=== PATIENT | male | born 1955 | race African-American/Black ===

== ENCOUNTER 2018-07-26 17:00 | Inpatient (IN) | payer OTHER ==
[~2018-07-26] VITALS: Ht 182.9 cm; Wt 57.3 kg
[2018-07-26] MEDS ORDERED: FAMOTIDINE 20 MG TAB PO STA (19:27)
[2018-07-26] MEDS ORDERED: LIDOCAINE/MYLANTA 40 ML BTL PO STA (19:27)
[2018-07-26] MEDS ORDERED: SOD CHLORIDE 0.9% 1,000 ML IV STA (19:27)
[2018-07-26] MEDS ORDERED: METOCLOPRAMIDE 10 MG INJ IV STA (19:27)
--- NOTE | 2018-07-26 20:10 | ERD ---
ER Documentation Chief Complaint Chief Complaint bilateral flank pain HPI 63-year-old homeless male presenting with upper abdominal pain that radiates to his back. The pain has been going on for the past 1-2 months. He has been seen about 4 times in various EDs and told it was his stomach. But any medications he is prescribed are not helping. He is not sure of the name of the medicines. He complains of decreased appetite, weight loss, and occasional nonbloody and nonbilious vomiting. He also has associated hard stools. His pain somewhat improves when he eats but he states he "cannot" he because it does not go down. He even has trouble drinking water. No fevers or chills. He was at an outside hospital yesterday where he had a CT scan done that did not show any significant abnormalities per the patient. He states that no one can find out what is going on. He went to the clinic today and was referred to the ER for further evaluation and admission. ROS All systems reviewed and are negative except as per history of present illness. Medications Home Meds No Active Prescriptions or Reported Meds Allergies Allergies: Coded Allergies: No Known Allergy (Unverified , 07/26/18) PMhx/Soc Medical and Surgical Hx: pt denies Surgical Hx History of Surgery: No Anesthesia Reaction: No Hx Neurological Disorder: No Hx Respiratory Disorders: No Hx Cardiac Disorders: Yes (HTN ) Hx Psychiatric Problems: No Hx Miscellaneous Medical Probl: Yes (History of hypertension and diabetes, no longer has these problems per patient) Hx Alcohol Use: No Hx Substance Use: No Hx Tobacco Use: No Smoking Status: Never smoker FmHx Family History: diabetes Physical Exam Vitals Vital Signs Date Temp Pulse Resp B/P (MAP) Pulse Ox O2 O2 Flow FiO2 Time Delivery Rate 07/26/18 79 14 114/82 99 Room Air 23:22 (93) 07/26/18 75 16 113/68 99 Room Air 22:43 (83) 07/26/18 83 18 148/96 99 Room Air 19:25 (113) 07/26/18 98.7 88 15 128/92 100 17:03 (104) Physical Exam Const: Thin, cachectic, in mild distress due to pain Head: Atraumatic Eyes: Normal Conjunctiva ENT: Normal External Ears, Nose and Mouth. Neck: Full range of motion. No meningismus. Resp: Clear to auscultation bilaterally Cardio: Regular rate and rhythm, no murmurs Abd: Soft, non tender, non distended. No masses. Normal bowel sounds Skin: No petechiae or rashes Back: No midline or flank tenderness Ext: No cyanosis, or edema Neur: Awake and alert Psych: Normal Mood and Affect Result Diagram: 07/26/18189907/26/181899 Results 24 hrs Laboratory Tests Test 07/26/18 19:00 07/26/18 19:35 White Blood Count 5.0 10^3/ul Red Blood Count 5.46 10^6/ul Hemoglobin 15.1 g/dl Hematocrit 45.9 % Mean Corpuscular Volume 84.1 fl Mean Corpuscular Hemoglobin 27.7 pg Mean Corpuscular Hemoglobin Concent 32.9 g/dl Red Cell Distribution Width 14.7 % Platelet Count 304 10^3/UL Mean Platelet Volume 10.2 fl Immature Granulocytes % 0.200 % Neutrophils % 58.5 % Lymphocytes % 30.8 % Monocytes % 10.3 % Eosinophils % 0.0 % Basophils % 0.2 % Nucleated Red Blood Cells % 0.0 /100WBC Immature Granulocytes # 0.010 10^3/ul Neutrophils # 2.9 10^3/ul Lymphocytes # 1.6 10^3/ul Monocytes # 0.5 10^3/ul Eosinophils # 0.0 10^3/ul Basophils # 0.0 10^3/ul Nucleated Red Blood Cells # 0.0 10^3/ul Sodium Level 135 mmol/L Potassium Level 4.1 mmol/L Chloride Level 94 mmol/L Carbon Dioxide Level 29 mmol/L Anion Gap 12 Blood Urea Nitrogen 16 mg/dl Creatinine 0.93 mg/dl Est Glomerular Filtrat Rate mL/min > 60 mL/min Glucose Level 104 mg/dl Calcium Level 10.4 mg/dl Total Bilirubin 0.7 mg/dl Direct Bilirubin 0.00 mg/dl Indirect Bilirubin 0.7 mg/dl Aspartate Amino Transf (AST/SGOT) 42 IU/L Alanine Aminotransferase (ALT/SGPT) 29 IU/L Alkaline Phosphatase 93 IU/L Total Protein 9.1 g/dl Albumin 4.4 g/dl Globulin 4.70 g/dl Albumin/Globulin Ratio 0.93 Lipase 87 U/L Urine Color YELLOW Urine Clarity CLEAR Urine pH 7.0 Urine Specific [place] 1.013 Urine Ketones 1+ mg/dL Urine Nitrite NEGATIVE mg/dL Urine Bilirubin NEGATIVE mg/dL Urine Urobilinogen 2+ mg/dL Urine Leukocyte Esterase NEGATIVE Komal/ul Urine Hemoglobin NEGATIVE mg/dL Urine Glucose NEGATIVE mg/dL Urine Total Protein NEGATIVE mg/dl Current Medications Medications Dose Sig/Kassandra Start Time Status Last (Trade) Ordered Route PRN Stop Time Admin Dose Reason Admin Sodium 1,000 ml @ Q1H STAT 07/26/18 DC 07/26/18 Chloride 1,000 mls/hr IV 19:27 07/26/18 19:46 20:26 10 mg ONCE STAT 07/26/18 DC 07/26/18 Metoclopramid IV 19:27 07/26/18 19:46 e HCl 19:30 (Reglan) Famotidine 20 mg ONCE STAT 07/26/18 DC 07/26/18 (Pepcid) PO 19:27 07/26/18 19:46 19:30 40 ml ONCE STAT 07/26/18 DC 07/26/18 Miscellaneous PO 19:27 07/26/18 19:45 Medication 19:30 (Gi Cocktail (2)) Ondansetron 4 mg BRIDGE ORDER 07/26/18 HCl (Zofran PRN IV 23:00 07/27/18 Inj) NAUSEA/VOMITI 22:59 NG 650 mg ER BRIDGE 07/26/18 Acetaminophen PRN PO 23:00 07/27/18 (Tylenol .MILD PAIN 22:59 Tab) 1-3 OR TEMP Sodium 100 ml @ ud STK-MED 07/26/18 DC 07/26/18 Chloride ONCE .ROUTE 23:33 07/26/18 23:45 23:34 Iohexol 150 ml STK-MED 07/26/18 DC 07/26/18 (Omnipaque ONCE .ROUTE 23:33 07/26/18 23:45 300mg/ ml) 23:34 Procedures/MDM EMERGENT LABS AND DIAGNOSTIC STUDIES: Lab Results above were reviewed and interpreted by me. CBC: no anemia or evidence of infection CMP: No evidence of electrolyte abnormality, renal failure, hypoglycemia, liver failure, or biliary obstruction Lipase: no evidence of pancreatitis UA: no evidence of infection Radiology Results as interpreted by Radiology below were reviewed by Kadi Barr MD: CXR: No acute abnormalities CT abdomen and pelvis pending Initial Nursing notes reviewed. Previous Medical Records requested via the Electronic Health Record. EMERGENCY DEPARTMENT COURSE / MEDICAL DECISION MAKING: Patient is presenting with severe upper abdominal pain that has been going on for the past 1-2 months with associated weight loss. Patient has not had appropriate outpatient follow-up and has seen physicians at multiple emergency rooms with no certain diagnosis. He went to see his primary care doctor today, who referred him to the ER for admission. He is recommending endoscopy for the patient. Labs did not show any significant abnormalities. However as patient is unable to eat or drink due to his pain, I feel the patient would most benefit from admission for further workup, especially given that he has poor outpatient follow-up. Accepting Care Team: Current data and ongoing care discussed. Time: Time of admission Primary Provider: Dr. Barber Sewell Diagnosis: Primary Impression: Intractable upper abdominal pain Additional Impression: Weight loss Condition: BHAVIK Way MD Jul 26, 2018 20:10
[2018-07-26] MEDS ORDERED: ACETAMINOPHEN 325 MG TAB PO PRN (23:00)
[2018-07-26] MEDS ORDERED: ONDANSETRON 4 MG INJ IV PRN (23:00)
[2018-07-26] MEDS ORDERED: SOD CHLORIDE 0.9% 100 ML ONE (23:33)
[2018-07-26] MEDS ORDERED: IOHEXOL 300MG/ML 150 ML BTL ONE (23:33)
--- NOTE | 2018-07-26 23:59 | HP ---
Date/Time of Note Date/Time of Note DATE: 07/26/18 TIME: 23:59 Assessment/Plan VTE Prophylaxis Pharmacological prophylaxis: heparin Assessment/Plan Assessment/Plan 1. Abdominal pain, weight loss: Rule out malignancy -CT abdomen/pelvis showed Contracted gallbladder with possible wall thickening and some fluid adjacent to the gallbladder and duodenum with small 9 mm dense or enhancing focus adjacent to the gallbladder of uncertain etiology. -will obtain abdominal ultrasound. -Additional imaging as needed 2. Dysphagia: Mostly to solids: GI consult 3. Hypertension: BP within goal Result Diagram: 07/26/18 1900 07/26/18 190 Results 24hrs Laboratory Tests Test 07/26/18 19:00 07/26/18 19:35 White Blood Count 5.0 Red Blood Count 5.46 Hemoglobin 15.1 Hematocrit 45.9 Mean Corpuscular Volume 84.1 Mean Corpuscular Hemoglobin 27.7 L Mean Corpuscular Hemoglobin Concent 32.9 Red Cell Distribution Width 14.7 H Platelet Count 304 Mean Platelet Volume 10.2 Immature Granulocytes % 0.200 Neutrophils % 58.5 Lymphocytes % 30.8 Monocytes % 10.3 Eosinophils % 0.0 Basophils % 0.2 Nucleated Red Blood Cells % 0.0 Immature Granulocytes # 0.010 Neutrophils # 2.9 Lymphocytes # 1.6 Monocytes # 0.5 Eosinophils # 0.0 Basophils # 0.0 Nucleated Red Blood Cells # 0.0 Sodium Level 135 Potassium Level 4.1 Chloride Level 94 L Carbon Dioxide Level 29 Anion Gap 12 Blood Urea Nitrogen 16 Creatinine 0.93 Est Glomerular Filtrat Rate mL/min > 60 Glucose Level 104 Calcium Level 10.4 H Total Bilirubin 0.7 Direct Bilirubin 0.00 Indirect Bilirubin 0.7 Aspartate Amino Transf (AST/SGOT) 42 Alanine Aminotransferase (ALT/SGPT) 29 Alkaline Phosphatase 93 Total Protein 9.1 H Albumin 4.4 Globulin 4.70 H Albumin/Globulin Ratio 0.93 Lipase 87 Urine Color YELLOW Urine Clarity CLEAR Urine pH 7.0 Urine Specific [place] 1.013 Urine Ketones 1+ H Urine Nitrite NEGATIVE Urine Bilirubin NEGATIVE Urine Urobilinogen 2+ H Urine Leukocyte Esterase NEGATIVE Urine Hemoglobin NEGATIVE Urine Glucose NEGATIVE Urine Total Protein NEGATIVE HPI/ROS Admit Date/Time Admit Date/Time Hx of Present Illness This is a 63-year-old male with a history of hypertension, asthma, dyslipidemia, pancreatitis, possible gastric ulcer who presented to ER complaining of abdominal pain. He said he has been having abdominal pain in the losing weight for the past 3 months. He said over the past 1 months, he lost 16 pounds. He reported difficulty swallowing mostly with solids. He also reported poor appetite. He said his been to 3 different hospitals over the past [address] scan of his abdomen was done. The only diagnosis that he remembers is being told about acid reflux and stomach ulcer. He did not have an EGD. The ER CT abdomen/pelvis was done which showed the followin. The liver is slightly small in size with a suggestion of minimal micro lobulated contour. No hepatic masses. This may be incidental or due to mild cirrhosis. 2. Contracted gallbladder with possible wall thickening and some fluid adjacent to the gallbladder and duodenum with small 9 mm dense or enhancing focus adjacent to the gallbladder of uncertain etiology. Ultrasound of the gallbladder after fasting may be helpful for further evaluation. 3. Possible mild pancreatitis. Correlate with pancreatic enzymes. PMH/Family/Social Past Medical History Medications Current Medications Ondansetron HCl (Zofran Inj) 4 mg BRIDGE ORDER PRN IV NAUSEA/VOMITING; Start 07/26/18 at 23:00; Stop 07/27/18 at 22:59 Acetaminophen (Tylenol Tab) 650 mg ER BRIDGE PRN PO .MILD PAIN 1-3 OR TEMP; Start 07/26/18 at 23:00; Stop 07/27/18 at 22:59 Coded Allergies: No Known Allergy (Unverified , 07/30/18) Social History Smoking Status: Never smoker Exam/Review of Systems Vital Signs Vitals Vital Signs Date Temp Pulse Resp B/P (MAP) Pulse Ox O2 O2 Flow FiO2 Time Delivery Rate 07/26/18 79 14 114/82 99 Room Air 23:22 (93) 07/26/18 98.7 17:03 Exam Exam Past Medical History: see hpi Past Surgical History Past Surgical Hx: other (see hpi) Family History Significant Family History: no pertinent family hx Social History Alcohol Use: other Smoking Status: Unknown if ever smoked Drug Use: other Medications Exam Eyes: PERRL ENMT: mucosa pink and moist Respiratory: normal air movement Cardiovascular: nl pulses Gastrointestinal: soft Extremities: normal pulses KAMERON TINSLEY MD Jul 26, 2018 23:59
[2018-07-27 01:00] VITALS: Ht 182.9 cm; Wt 57.3 kg
[2018-07-27] MEDS ORDERED: ONDANSETRON 4 MG INJ IV PRN (02:00)
[2018-07-27] MEDS ORDERED: NACL 0.9% 3 ML SYG IV SCH (02:00)
[2018-07-27 07:42] VITALS: BP 121/83; PULSE 85; RESP 18
[2018-07-27] MEDS: HYDROCODONE/APAP (5/325) TAB PO PRN ×3 (07:55→20:58)
[2018-07-27] MEDS: HEPARIN 5,000 UNIT/1 ML VIAL SC SCH ×2 (08:36→21:00)
[2018-07-27 13:39] VITALS: BP 103/65; PULSE 94; RESP 18
--- NOTE | 2018-07-27 17:02 | PN ---
Date/Time of Note Date/Time of Note DATE: 07/27/18 TIME: 16:57 Assessment/Plan VTE Prophylaxis SCD contraindicated: low risk/ambulating Pharmacological prophylaxis: LMWH Lines/Catheters IV C[facility]ter Type [facility] Peripheral IV Urinary Cath still in place: No Assessment/Plan Hospital Course Hospitalist coverage Assessment plan 1. Epigastric/flank upper abdominal pain. Consult GI. Chronic cholecystitis versus pancreatitis? Stable consider ERCP. 2. Chronic pancreatitis? Due to alcoholism versus stones? 3. Past alcoholism. History of [place]. Apparently unremarkable. 4. Weight loss. Consider due to chronic cholecystitis/pancreatitis. However may need colonoscopy. S: Subacute pain, w wt loss. Bilat abd, sharp pain to back. Worse lying down or at night. No relieving factors. No fever diarrhea constipation or Gi b. No fever dyspnea. Early satiety vs loss of appetite? Objective: Vital signs stable Physical exam No pallor icterus adenopathy. Positive bitemporal wasting Regular no murmur clear Bowel sounds diminished nontender nondistended no ri/r/g No edema Result Diagram: 07/27/18 0449 07/27/18 0449 Results 24hrs Laboratory Tests Test 07/26/18 19:00 07/26/18 19:35 07/27/18 04:49 White Blood Count 5.0 4.9 Red Blood Count 5.46 4.52 L Hemoglobin 15.1 12.4 L Hematocrit 45.9 37.6 L Mean Corpuscular Volume 84.1 83.2 Mean Corpuscular Hemoglobin 27.7 L 27.4 L Mean Corpuscular Hemoglobin Concent 32.9 33.0 Red Cell Distribution Width 14.7 H 14.9 H Platelet Count 304 272 Mean Platelet Volume 10.2 10.0 Immature Granulocytes % 0.200 0.200 Neutrophils % 58.5 53.9 Lymphocytes % 30.8 31.5 Monocytes % 10.3 14.0 H Eosinophils % 0.0 0.2 Basophils % 0.2 0.2 Nucleated Red Blood Cells % 0.0 0.0 Immature Granulocytes # 0.010 0.010 Neutrophils # 2.9 2.6 Lymphocytes # 1.6 1.5 Monocytes # 0.5 0.7 Eosinophils # 0.0 0.0 Basophils # 0.0 0.0 Nucleated Red Blood Cells # 0.0 0.0 Sodium Level 135 135 Potassium Level 4.1 4.0 Chloride Level 94 L 100 Carbon Dioxide Level 29 27 Anion Gap 12 8 Blood Urea Nitrogen 16 16 Creatinine 0.93 0.98 Est Glomerular Filtrat Rate mL/min > 60 > 60 Glucose Level 104 119 Calcium Level 10.4 H 9.1 Total Bilirubin 0.7 0.5 Direct Bilirubin 0.00 0.00 Indirect Bilirubin 0.7 0.5 Aspartate Amino Transf (AST/SGOT) 42 29 Alanine Aminotransferase (ALT/SGPT) 29 27 Alkaline Phosphatase 93 64 Total Protein 9.1 H 6.9 # Albumin 4.4 3.3 # Globulin 4.70 H 3.60 H Albumin/Globulin Ratio 0.93 0.91 Lipase 87 Urine Color YELLOW Urine Clarity CLEAR Urine pH 7.0 Urine Specific [place] 1.013 Urine Ketones 1+ H Urine Nitrite NEGATIVE Urine Bilirubin NEGATIVE Urine Urobilinogen 2+ H Urine Leukocyte Esterase NEGATIVE Urine Hemoglobin NEGATIVE Urine Glucose NEGATIVE Urine Total Protein NEGATIVE Magnesium Level 2.3 Triglycerides Level 63 Cholesterol Level 144 LDL Cholesterol, Calculated 59 HDL Cholesterol 72 Cholesterol/HDL Ratio 2.0 Exam/Review of Systems Exam Vitals Vital Signs Date Temp Pulse Resp B/P (MAP) Pulse Ox O2 O2 Flow FiO2 Time Delivery Rate 07/27/18 98.8 94 18 103/65 98 13:39 (78) 07/26/18 Room Air 23:22 Intake and Output 07/26/18 07/26/18 07/27/18 1515:00 23:00 07:00 IntakeIntake Total 720 ml OutputOutput Total 200 ml BalanceBalance 520 ml Results Results 24hrs Laboratory Tests Test 07/26/18 19:00 07/26/18 19:35 07/27/18 04:49 White Blood Count 5.0 4.9 Red Blood Count 5.46 4.52 L Hemoglobin 15.1 12.4 L Hematocrit 45.9 37.6 L Mean Corpuscular Volume 84.1 83.2 Mean Corpuscular Hemoglobin 27.7 L 27.4 L Mean Corpuscular Hemoglobin Concent 32.9 33.0 Red Cell Distribution Width 14.7 H 14.9 H Platelet Count 304 272 Mean Platelet Volume 10.2 10.0 Immature Granulocytes % 0.200 0.200 Neutrophils % 58.5 53.9 Lymphocytes % 30.8 31.5 Monocytes % 10.3 14.0 H Eosinophils % 0.0 0.2 Basophils % 0.2 0.2 Nucleated Red Blood Cells % 0.0 0.0 Immature Granulocytes # 0.010 0.010 Neutrophils # 2.9 2.6 Lymphocytes # 1.6 1.5 Monocytes # 0.5 0.7 Eosinophils # 0.0 0.0 Basophils # 0.0 0.0 Nucleated Red Blood Cells # 0.0 0.0 Sodium Level 135 135 Potassium Level 4.1 4.0 Chloride Level 94 L 100 Carbon Dioxide Level 29 27 Anion Gap 12 8 Blood Urea Nitrogen 16 16 Creatinine 0.93 0.98 Est Glomerular Filtrat Rate mL/min > 60 > 60 Glucose Level 104 119 Calcium Level 10.4 H 9.1 Total Bilirubin 0.7 0.5 Direct Bilirubin 0.00 0.00 Indirect Bilirubin 0.7 0.5 Aspartate Amino Transf (AST/SGOT) 42 29 Alanine Aminotransferase (ALT/SGPT) 29 27 Alkaline Phosphatase 93 64 Total Protein 9.1 H 6.9 # Albumin 4.4 3.3 # Globulin 4.70 H 3.60 H Albumin/Globulin Ratio 0.93 0.91 Lipase 87 Urine Color YELLOW Urine Clarity CLEAR Urine pH 7.0 Urine Specific [place] 1.013 Urine Ketones 1+ H Urine Nitrite NEGATIVE Urine Bilirubin NEGATIVE Urine Urobilinogen 2+ H Urine Leukocyte Esterase NEGATIVE Urine Hemoglobin NEGATIVE Urine Glucose NEGATIVE Urine Total Protein NEGATIVE Magnesium Level 2.3 Triglycerides Level 63 Cholesterol Level 144 LDL Cholesterol, Calculated 59 HDL Cholesterol 72 Cholesterol/HDL Ratio 2.0 Medications Medication Current Medications Ondansetron HCl (Zofran Inj) 4 mg BRIDGE ORDER PRN IV NAUSEA/VOMITING; Start 07/26/18 at 23:00; Stop 07/27/18 at 22:59 Acetaminophen (Tylenol Tab) 650 mg ER BRIDGE PRN PO .MILD PAIN 1-3 OR TEMP; Start 07/26/18 at 23:00; Stop 07/27/18 at 22:59 IV Flush (NS 3 ml) 3 ml PER PROTOCOL IV ; Start 07/27/18 at 02:00 Ondansetron HCl (Zofran Inj) 4 mg Q6H PRN IV NAUSEA/VOMITING; Start 07/27/18 at 02:00 Acetaminophen (Tylenol Tab) 650 mg Q6H PRN PO .PAIN 1-3 OR TEMP; Start 07/27/18 at 02:00 Acetaminophen/ Hydrocodone Bitart ([place] (5/325)) 1 tab Q6H PRN PO .MOD PAIN 4- 6 Last administered on 07/27/18at 15:04; Admin Dose 1 TAB; Start 07/27/18 at 02:00 Acetaminophen/ Hydrocodone Bitart ([place] (5/325)) 2 tab Q6H PRN PO .SEVERE PAIN 7-10; Start 07/27/18 at 02:00 Heparin Sodium (Porcine) (Heparin (5000 Units/1ml)) 5,000 unit Q12 SC Last administered on 07/27/18at 08:36; Admin Dose 5,000 UNIT; Start 07/27/18 at 09:00 JOHN ABDULLAHI MD Jul 27, 2018 17:02
[2018-07-27 20:47] VITALS: BP 105/63; PULSE 90; RESP 20
--- NOTE | 2018-07-27 21:09 | CONS ---
DATE OF ADMISSION: 07/26/2018 DATE OF CONSULTATION: HISTORY OF PRESENT ILLNESS: The patient is a 63-year-old man with a history of bronchial asthma, hyp ertension, dyslipidemia and pancreatitis, who presented to the ER complaining of abdominal pain. The pain is confined to the epigastric area radiating to both upper quadrants. No nausea, no vomiting. He definitely complains of dysphagia to solid food and anorexia and he lost 16 pounds in 1 month. T he patient denies drinking alcohol. Last drink was beer almost 8 to 9 months ago. He denies any GI bleeding. He had his colonoscopy in [facility] 4 years ago. The patient's CAT scan showed early cirrhosis and also pancreatitis. HOME MEDICATIONS: All reviewed. ALLERGIES: NONE. SOCIAL HISTORY: He does not smoke or drink alcohol. No recreational drug. PHYSICAL EXAMINATION GENERAL: Definitely appears wasted. CARDIOVASCULAR: No murmur, gallop or click. LUNGS: Clear. ABDOMEN: Benign except for a mild tenderness in the epigastric area. EXTREMITIES: No edema. CENTRAL NERVOUS SYSTEM: Grossly within normal limits. LABORATORY DATA: Lipase is normal at 87. The patient's triglyceride is normal. Albumin was 3.3. L FTs are all normal. ____ normal. CBC also was normal with hematocrit of 37.6 and platelet count was 272. IMPRESSION: 1. Epigastric pain, most probably related to pancreatitis, rule out peptic ulcer disease. 2. Dysphagia to solid food. Rule out malignancy, especially esophageal stricture. 3. Cachexia. 4. Hypertension. 5. History of bronchial asthma. 6. Dyslipidemia by history. PLAN: At this point, empirically start the patient on PPI, pain management and will proceed with EGD on Sunday. If patient has no metal in the body, then he might be a candidate for MRCP to evaluate t he pancreatic duct. Thank you Dr. Abdullahi for the kind referral. Dictated By: TRUMAN ARRINGTON MD PJ/NTS Conf#: [id number] DID#: [id number] CC: KAMERON TINSLEY MD; JOHN ABDULLAHI MD;*EndCC*
[2018-07-28 02:23] VITALS: BP 110/65; PULSE 78
[2018-07-28] MEDS: HYDROCODONE/APAP (5/325) TAB PO PRN ×2 (03:02→15:23)
[2018-07-28 08:06] VITALS: BP 134/85; PULSE 67; RESP 16
[2018-07-28] MEDS: HEPARIN 5,000 UNIT/1 ML VIAL SC SCH ×2 (08:45→21:00)
--- NOTE | 2018-07-28 12:19 | PN ---
Date/Time of Note Date/Time of Note DATE: 07/28/18 TIME: 12:16 Assessment/Plan VTE Prophylaxis Risk score (from Nsg)>0 risk: 4 SCD applied (from Ns): Yes SCD contraindicated: low risk/ambulating Pharmacological prophylaxis: LMWH Lines/Catheters IV Catheter Type (from Nrs): Saline Lock Urinary Cath still in place: No Assessment/Plan Hospital Course Hospitalist coverage A/P 1. Epigastric/flank upper abd pain. DD: Chr cholecystitis vs pancreatitis vs PUD? Stable consider ERCP, unable to do mrcp. EGD Sunday. 2. Chr pancreatitis? Due to alcoholism vs stones? 3. Past alcoholism. Ho colonoscopy 4 yrs ago in half-way. Apparently unremarkable. 4. Weight loss. DD- chr cholecystitis/pancreatitis. However may need colon oscopy. 5. Likely chronic hepatitis C viremia. No mass on ultrasound. Check alpha- fetoprotein. 6. Dysphagia mostly to solids 7. Anemia S: 3/2 subacute pain, w wt loss. Bilat abd, sharp pain to back. Worse lying down or at night. No relieving factors. No fever diarrhea constipation or Gi b. No fever dyspnea. Early satiety vs loss of appetite? /3: No distress Objective: Vital signs stable Physical exam No pallor. Positive bitemporal wasting Regular no m/r/g Bs diminished nontender nondistended no r/r/g No edema Result Diagram: 07/28/18 0449 07/28/18 0450 Results 24hrs Laboratory Tests Test 07/28/18 04:49 07/28/18 04:50 White Blood Count 5.4 Red Blood Count 4.29 L Hemoglobin 11.9 L Hematocrit 36.8 L Mean Corpuscular Volume 85.8 Mean Corpuscular Hemoglobin 27.7 L Mean Corpuscular Hemoglobin Concent 32.3 Red Cell Distribution Width 15.0 H Platelet Count 243 Mean Platelet Volume 10.1 Immature Granulocytes % 0.400 Neutrophils % 40.8 Lymphocytes % 45.2 Monocytes % 12.6 H Eosinophils % 0.6 Basophils % 0.4 Nucleated Red Blood Cells % 0.0 Immature Granulocytes # 0.020 Neutrophils # 2.2 Lymphocytes # 2.4 Monocytes # 0.7 Eosinophils # 0.0 Basophils # 0.0 Nucleated Red Blood Cells # 0.0 Prothrombin Time 12.9 Prothrombin Time Ratio 1.0 INR International Normalized Ratio 0.96 Activated Partial Thromboplast Time 31.7 Hemoglobin A1c 5.4 Phosphorus Level 2.9 Magnesium Level 2.2 Triglycerides Level 53 Cholesterol Level 142 LDL Cholesterol, Calculated 52 HDL Cholesterol 79 H Cholesterol/HDL Ratio 1.7 Lipase 196 Carcinoembryonic Antigen 1.9 CA 19-9 Antigen 20.0 Hepatitis B Surface Antigen NEGATIVE Hepatitis B Core Total Antibody REACTIVE H Hepatitis C Antibody REACTIVE H Sodium Level 134 L Potassium Level 4.0 Chloride Level 98 Carbon Dioxide Level 26 Anion Gap 10 Blood Urea Nitrogen 19 Creatinine 1.01 Est Glomerular Filtrat Rate mL/min > 60 Glucose Level 115 Calcium Level 8.8 Total Bilirubin 0.0 L Direct Bilirubin 0.00 Indirect Bilirubin 0.0 Aspartate Amino Transf (AST/SGOT) 32 Alanine Aminotransferase (ALT/SGPT) 30 Alkaline Phosphatase 97 # Total Protein 6.9 Albumin 3.3 Globulin 3.60 H Albumin/Globulin Ratio 0.91 Thyroid Stimulating Hormone (TSH) 4.090 Exam/Review of Systems Exam Vitals Vital Signs Date Temp Pulse Resp B/P (MAP) Pulse Ox O2 O2 Flow FiO2 Time Delivery Rate 07/28/18 97.8 67 16 134/85 99 08:06 (101) 07/26/18 Room Air 23:22 Intake and Output 07/27/18 07/27/18 07/28/18 1515:00 23:00 07:00 IntakeIntake Total 480 ml 480 ml OutputOutput Total 200 ml 400 ml 400 ml BalanceBalance -200 ml 80 ml 80 ml Results Results 24hrs Laboratory Tests Test 07/28/18 04:49 07/28/18 04:50 White Blood Count 5.4 Red Blood Count 4.29 L Hemoglobin 11.9 L Hematocrit 36.8 L Mean Corpuscular Volume 85.8 Mean Corpuscular Hemoglobin 27.7 L Mean Corpuscular Hemoglobin Concent 32.3 Red Cell Distribution Width 15.0 H Platelet Count 243 Mean Platelet Volume 10.1 Immature Granulocytes % 0.400 Neutrophils % 40.8 Lymphocytes % 45.2 Monocytes % 12.6 H Eosinophils % 0.6 Basophils % 0.4 Nucleated Red Blood Cells % 0.0 Immature Granulocytes # 0.020 Neutrophils # 2.2 Lymphocytes # 2.4 Monocytes # 0.7 Eosinophils # 0.0 Basophils # 0.0 Nucleated Red Blood Cells # 0.0 Prothrombin Time 12.9 Prothrombin Time Ratio 1.0 INR International Normalized Ratio 0.96 Activated Partial Thromboplast Time 31.7 Hemoglobin A1c 5.4 Phosphorus Level 2.9 Magnesium Level 2.2 Triglycerides Level 53 Cholesterol Level 142 LDL Cholesterol, Calculated 52 HDL Cholesterol 79 H Cholesterol/HDL Ratio 1.7 Lipase 196 Carcinoembryonic Antigen 1.9 CA 19-9 Antigen 20.0 Hepatitis B Surface Antigen NEGATIVE Hepatitis B Core Total Antibody REACTIVE H Hepatitis C Antibody REACTIVE H Sodium Level 134 L Potassium Level 4.0 Chloride Level 98 Carbon Dioxide Level 26 Anion Gap 10 Blood Urea Nitrogen 19 Creatinine 1.01 Est Glomerular Filtrat Rate mL/min > 60 Glucose Level 115 Calcium Level 8.8 Total Bilirubin 0.0 L Direct Bilirubin 0.00 Indirect Bilirubin 0.0 Aspartate Amino Transf (AST/SGOT) 32 Alanine Aminotransferase (ALT/SGPT) 30 Alkaline Phosphatase 97 # Total Protein 6.9 Albumin 3.3 Globulin 3.60 H Albumin/Globulin Ratio 0.91 Thyroid Stimulating Hormone (TSH) 4.090 Medications Medication Current Medications IV Flush (NS 3 ml) 3 ml PER PROTOCOL IV ; Start 07/27/18 at 02:00 Ondansetron HCl (Zofran Inj) 4 mg Q6H PRN IV NAUSEA/VOMITING; Start 07/27/18 at 02:00 Acetaminophen (Tylenol Tab) 650 mg Q6H PRN PO .PAIN 1-3 OR TEMP; Start 07/27/18 at 02:00 Acetaminophen/ Hydrocodone Bitart ([place] (5/325)) 1 tab Q6H PRN PO .MOD PAIN 4- 6 Last administered on 07/28/18at 03:02; Admin Dose 1 TAB; Start 07/27/18 at 02:00 Acetaminophen/ Hydrocodone Bitart ([place] (5/325)) 2 tab Q6H PRN PO .SEVERE PAIN 7-10; Start 07/27/18 at 02:00 Heparin Sodium (Porcine) (Heparin (5000 Units/1ml)) 5,000 unit Q12 SC Last administered on 07/28/18at 08:45; Admin Dose 5,000 UNIT; Start 07/27/18 at 09:00 JOHN ABDULLAHI MD Jul 28, 2018 12:19
[2018-07-28 15:21] VITALS: BP 111/70; PULSE 94; RESP 18
--- NOTE | 2018-07-28 17:38 | CONS ---
Assessment/Plan Assessment/Plan Hospital Course (Demo Recall) Interval HX- The patient is a 63-year-old man with a history of bronchial asthma, hypertension, dyslipidemia and pancreatitis, who presented to the ER complaining of abdominal pain. The pain is confined to the epigastric area radiating to both upper quadrants. No nausea, no vomiting. He definitely complains of dysphagia to solid food and anorexia and he lost 16 pounds in 1 month. The patient's CAT scan showed early cirrhosis and also pancreatitis. IMPRESSION: 1. Epigastric pain, most probably related to pancreatitis, rule out peptic ulcer disease. 2. Dysphagia to solid food. Rule out malignancy, especially esophageal stricture. 3. Cachexia. 4. Hypertension. 5. History of bronchial asthma. 6. Dyslipidemia by history. PLAN: PPI-GI prophylaxis Antiemetics Pain management EGD in am, NPO after midnight Patient examined and plan of care discussed with Dr Lassiter Consultation Date/Type/Reason Admit Date/Time Jul 26, 2018 at 22:49 Initial Consult Date Date/Time of Note DATE: 07/28/18 TIME: 17:30 Exam/Review of Systems Exam Vitals Vital Signs Date Temp Pulse Resp B/P (MAP) Pulse Ox O2 O2 Flow FiO2 Time Delivery Rate 07/28/18 98.7 94 18 111/70 100 15:21 (84) 07/26/18 Room Air 23:22 Intake and Output 07/27/18 07/27/18 07/28/18 1515:00 23:00 07:00 IntakeIntake Total 480 ml 480 ml OutputOutput Total 200 ml 400 ml 400 ml BalanceBalance -200 ml 80 ml 80 ml Constitutional: alert, oriented, other (cachectic appearing) Psych: no complaints Head: normocephalic, atraumatic Eyes: nl conjunctiva, EOMI ENMT: nl external ears & nose Neck: supple Respiratory: clear to auscultation, normal air movement Cardiovascular: regular rate and rhythm Gastrointestinal: soft, tender (epigastric region) Musculoskeletal: nl extremities to inspection Extremities: normal pulses Neurological: MANAGER STRATEGIC SOURCING II-XII intact, nl mental status Results Result Diagram: 07/28/18 0449 07/28/18 7740 Results 24hrs Laboratory Tests Test 07/28/18 04:49 07/28/18 04:50 White Blood Count 5.4 Red Blood Count 4.29 L Hemoglobin 11.9 L Hematocrit 36.8 L Mean Corpuscular Volume 85.8 Mean Corpuscular Hemoglobin 27.7 L Mean Corpuscular Hemoglobin Concent 32.3 Red Cell Distribution Width 15.0 H Platelet Count 243 Mean Platelet Volume 10.1 Immature Granulocytes % 0.400 Neutrophils % 40.8 Lymphocytes % 45.2 Monocytes % 12.6 H Eosinophils % 0.6 Basophils % 0.4 Nucleated Red Blood Cells % 0.0 Immature Granulocytes # 0.020 Neutrophils # 2.2 Lymphocytes # 2.4 Monocytes # 0.7 Eosinophils # 0.0 Basophils # 0.0 Nucleated Red Blood Cells # 0.0 Prothrombin Time 12.9 Prothrombin Time Ratio 1.0 INR International Normalized Ratio 0.96 Activated Partial Thromboplast Time 31.7 Hemoglobin A1c 5.4 Phosphorus Level 2.9 Magnesium Level 2.2 Triglycerides Level 53 Cholesterol Level 142 LDL Cholesterol, Calculated 52 HDL Cholesterol 79 H Cholesterol/HDL Ratio 1.7 Lipase 196 Carcinoembryonic Antigen 1.9 CA 19-9 Antigen 20.0 Hepatitis B Surface Antigen NEGATIVE Hepatitis B Core Total Antibody REACTIVE H Hepatitis C Antibody REACTIVE H Sodium Level 134 L Potassium Level 4.0 Chloride Level 98 Carbon Dioxide Level 26 Anion Gap 10 Blood Urea Nitrogen 19 Creatinine 1.01 Est Glomerular Filtrat Rate mL/min > 60 Glucose Level 115 Calcium Level 8.8 Total Bilirubin 0.0 L Direct Bilirubin 0.00 Indirect Bilirubin 0.0 Aspartate Amino Transf (AST/SGOT) 32 Alanine Aminotransferase (ALT/SGPT) 30 Alkaline Phosphatase 97 # Total Protein 6.9 Albumin 3.3 Globulin 3.60 H Albumin/Globulin Ratio 0.91 Thyroid Stimulating Hormone (TSH) 4.090 Medications Medication Current Medications IV Flush (NS 3 ml) 3 ml PER PROTOCOL IV ; Start 07/27/18 at 02:00 Ondansetron HCl (Zofran Inj) 4 mg Q6H PRN IV NAUSEA/VOMITING; Start 07/27/18 at 02:00 Acetaminophen (Tylenol Tab) 650 mg Q6H PRN PO .PAIN 1-3 OR TEMP; Start 07/27/18 at 02:00 Acetaminophen/ Hydrocodone Bitart ([place] (5/325)) 1 tab Q6H PRN PO .MOD PAIN 4- 6 Last administered on 07/28/18at 15:23; Admin Dose 1 TAB; Start 07/27/18 at 02:00 Acetaminophen/ Hydrocodone Bitart ([place] (5/325)) 2 tab Q6H PRN PO .SEVERE PAIN 7-10; Start 07/27/18 at 02:00 Heparin Sodium (Porcine) (Heparin (5000 Units/1ml)) 5,000 unit Q12 SC Last administered on 07/28/18at 08:45; Admin Dose 5,000 UNIT; Start 07/27/18 at 09:00 RAMANA DING NP Jul 28, 2018 17:38
[2018-07-28 19:44] VITALS: BP 111/62; PULSE 97; RESP 16
[2018-07-29] VITALS (8 sets, daily range): BP systolic 92–160; BP diastolic 59–95; PULSE 64–95; RESP 16–25
[2018-07-29] MEDS ORDERED: PANTOPRAZOLE (EC) 40 MG TAB PO SCH (06:00)
[2018-07-29] MEDS ORDERED: LIDOCAINE 2% (SDV) 5 ML INJ ONE (07:00)
[2018-07-29] MEDS ORDERED: PROPOFOL 200 MG INJ ONE (07:00)
[2018-07-29] MEDS: HEPARIN 5,000 UNIT/1 ML VIAL SC SCH ×2 (09:00→21:39)
--- NOTE | 2018-07-29 09:33 | PN ---
Date/Time of Note Date/Time of Note DATE: 07/29/18 TIME: 09:32 Assessment/Plan VTE Prophylaxis Risk score (from Nsg)>0 risk: 3 SCD applied (from Nsg): Yes Pharmacological prophylaxis: heparin Lines/Catheters IV Catheter Type (from Nrs): Saline Lock Urinary Cath still in place: No Assessment/Plan Hospital Course SUBJECTIVE: Denies any abdominal pain at this time. OBJECTIVE: Physical Exam General: Thin, frail looking, 63 year-old male lying in bed in no apparent distress. HEENT: Normocephalic, atraumatic. Eyes: Anicteric sclerae, conjunctivae clear. ENT: Nasal septum midline, oral mucosa moist. Neck supple, no JVD noticed. Respiratory: Bilaterally clear breath sounds. No use of accessory muscles of respiration. No adventitious breath sounds. Cardiovascular: S1, S2 heard. Regular rate and rhythm. Abdomen: Soft and scaphoid. Nontender, and nondistended. Bowel sounds positive in all 4 quadrants. Genitourinary: Deferred. Extremities: No cyanosis, no clubbing, no edema. Peripheral pulses palpable. Neurologic: Cranial nerves II through XII grossly intact. The patient is awake, alert, and oriented. Skin: Normal skin turgor. No skin rashes. Labs & Vitals per chart ASSESSMENT & PLAN 63-year-old male with past medical history of hypertension, asthma, dyslipidemia, and pancreatitis who came to the emergency room with epigastric p ain and unintentional weight loss with the CT scan showing contracted gallbladder wall with possible wall thickening and some fluid adjacent to the gallbladder and duodenum with small 9 mm dense or enhancing focus adjacent to the gallbladder. The patient was admitted to inpatient setting for further treatment and evaluation. 1. Epigastric pain. -Etiology unclear. -Gallbladder ultrasound negative for any gallstones. LFTs within normal limits. -Being followed by gastroenterology. -Esophagogastroduodenoscopy scheduled for evaluation for any peptic ulcer. -Continue PPI. 2. Dysphagia to solid foods. -Being followed by gastroenterology. -Scheduled for esophagogastroduodenoscopy today. 3. History of dyslipidemia. -Fasting lipid panel satisfactory. 4. Hypertension. -Blood pressure stable off antihypertensives. 5. Unintentional weight loss. -Being evaluated for any underlying malignancy. -Dietary consult. 6. Fluids, electrolytes, and nutrition. -N.p.o. for procedure. 7. DVT prophylaxis -Subcutaneous heparin. 8. Plan. -Continue PPI. -Await esophagogastroduodenoscopy. The patient was seen in collaboration with Dr. Barakat. Result Diagram: 07/28/189 07/28/18449 Exam/Review of Systems Exam Vitals Vital Signs Date Temp Pulse Resp B/P (MAP) Pulse Ox O2 O2 Flow FiO2 Time Delivery Rate 07/29/18 98.3 86 18 138/87 99 Room Air 07:44 (104) Intake and Output 07/28/18 07/28/18 07/29/18 1515:00 23:00 07:00 IntakeIntake Total 480 ml 200 ml OutputOutput Total 750 ml 1000 ml 800 ml BalanceBalance -750 ml -520 ml -600 ml Medications Medication Current Medications IV Flush (NS 3 ml) 3 ml PER PROTOCOL IV ; Start 07/27/18 at 02:00 Ondansetron HCl (Zofran Inj) 4 mg Q6H PRN IV NAUSEA/VOMITING; Start 07/27/18 at 02:00 Acetaminophen (Tylenol Tab) 650 mg Q6H PRN PO .PAIN 1-3 OR TEMP; Start 07/27/18 at 02:00 Acetaminophen/ Hydrocodone Bitart ([place] (5/325)) 1 tab Q6H PRN PO .MOD PAIN 4- 6 Last administered on 07/28/18at 15:23; Admin Dose 1 TAB; Start 07/27/18 at 02:00 Acetaminophen/ Hydrocodone Bitart ([place] (5/325)) 2 tab Q6H PRN PO .SEVERE PAIN 7-10; Start 07/27/18 at 02:00 Heparin Sodium (Porcine) (Heparin (5000 Units/1ml)) 5,000 unit Q12 SC Last administered on 07/28/18at 08:45; Admin Dose 5,000 UNIT; Start 07/27/18 at 09:00 Pantoprazole (Protonix Tab) 40 mg DAILY@06 PO ; Start 07/29/18 at 06:00 RADHA LI NP Jul 29, 2018 09:33
[2018-07-29] MEDS ORDERED: SOD CHLORIDE 0.9% 1,000 ML IV SCH (10:00)
--- NOTE | 2018-07-29 11:57 | PREAC ---
Date/Time of Note Date/Time of Note DATE: 07/29/18 TIME: 11:46 Anesthesia Eval and Record Evaluation Time Pre-Procedure Interview DATE: 07/29/18 TIME: 11:46 Age 63 Sex male NPO: 8 hrs Preoperative diagnosis abdominal pain. Planned procedure EGD Past Medical History Past Medical History: Includes Cardio: HTN, Dyslipidemia Pulm: Asthma Surgery & Anesthesia Issues No known issue Meds Anticoagulation: No Beta Sera within 24 hr: No Reason Beta Sera not given: Pt. not on B-Sera No Active Prescriptions or Reported Meds Current Medications IV Flush (NS 3 ml) 3 ml PER PROTOCOL IV ; Start 07/27/18 at 02:00 Ondansetron HCl (Zofran Inj) 4 mg Q6H PRN IV NAUSEA/VOMITING; Start 07/27/18 at 02:00 Acetaminophen (Tylenol Tab) 650 mg Q6H PRN PO .PAIN 1-3 OR TEMP; Start 07/27/18 at 02:00 Acetaminophen/ Hydrocodone Bitart ([place] (5/325)) 1 tab Q6H PRN PO .MOD PAIN 4- 6 Last administered on 07/28/18at 15:23; Admin Dose 1 TAB; Start 07/27/18 at 02:00 Acetaminophen/ Hydrocodone Bitart ([place] (5/325)) 2 tab Q6H PRN PO .SEVERE PAIN 7-10; Start 07/27/18 at 02:00 Heparin Sodium (Porcine) (Heparin (5000 Units/1ml)) 5,000 unit Q12 SC Last administered on 07/28/18at 08:45; Admin Dose 5,000 UNIT; Start 07/27/18 at 09:00 Pantoprazole (Protonix Tab) 40 mg DAILY@06 PO ; Start 07/29/18 at 06:00 Sodium Chloride 1,000 ml @ 75 mls/hr [id number] IV ; Start 07/29/18 at 10:00 Meds reviewed: Yes Allergies Coded Allergies: No Known Allergy (Unverified , 07/26/18) Allergies Reviewed: Yes Labs/Studies Labs Reviewed: Reviewed by anesthesiologist Result Diagram: 07/28/18 4879 07/28/18 0450 test: N/A Pre-procedure Exam Last vitals Vital Signs Date Temp Pulse Resp B/P (MAP) Pulse Ox O2 O2 Flow FiO2 Time Delivery Rate 07/29/18 98.3 86 18 138/87 99 Room Air 07:44 (104) Airway: Adequate mouth opening, Adequate thyromental dist Mallampati: Mallampati II Teeth: Abnormal (no teeth) Lung: Normal Heart: Normal ASA Physical Status ASA physical status: 3 Emergency: None Planned Anesthetic General/MAC: MAC Pre-operative Attestations Prior to commencing anesthesia and surgery, the patient was re-evaluated, there was verification of: *The patient's identity *The results of appropriate recent lab work and preoperative vital signs *The above evaluation not changing prior to induction *Anesthetic plan, risk benefits, alternative and complications discussed with patient/family; questions answered; patient/family understands, accepts and wishes to proceed. SWETHA HUYNH Jul 29, 2018 11:56
[2018-07-29] MEDS ORDERED: hydrALAzine 20 MG INJ IV PRN (12:00)
[2018-07-29] MEDS ORDERED: LABETALOL HCL 20MG INJ IV PRN (12:00)
--- NOTE | 2018-07-29 12:35 | PAC ---
Date/Time of Note Date/Time of Note DATE: 07/29/18 TIME: 12:34 Post-Anesthesia Notes Post-Anesthesia Note Last documented vital signs Vital Signs Date Temp Pulse Resp B/P (MAP) Pulse Ox O2 O2 Flow FiO2 Time Delivery Rate 07/29/18 98.3 86 18 138/87 99 Room Air 07:44 (104) Activity: WNL Respiratory function: WNL Cardiovascular function: WNL Mental status: Baseline Pain reasonably controlled: Yes Hydration appropriate: Yes Nausea/Vomiting absent: Yes Comments BP 90/60 HR 83 RR 16 SpO2 100% temp 98.6F SWEHTA HUYNH Jul 29, 2018 12:35
[2018-07-29] MEDS: HYDROCODONE/APAP (5/325) TAB PO PRN (23:28)
[2018-07-29] MEDS: POLYETHYLENE GLYCOL 17 GM PACKET PO SCH (23:28)
[2018-07-29] MEDS: DOCUSATE SODIUM 100 MG CAP PO SCH (23:28)
[2018-07-30] VITALS (80 sets, daily range): BP systolic 64–195; BP diastolic 42–140; PULSE 96–131; RESP 18–48
--- NOTE | 2018-07-30 03:24 | EN ---
Date/Time of Note Date/Time of Note DATE: 07/30/18 TIME: 03:13 Event Note Medicine Medicine Event Note Rapid response note Rapid response was called at approximately 2:15 AM after patient had episode of coffee-ground emesis and and rectal bleeding and hypotension Patient was seen and examined at the bedside. Patient apparently went to the bathroom and while he was on the toilet seat he was noted to become lethargic and he had a episode of coffee-ground emesis as well as tarry stool. Patient was immediately brought to the bed. Where his blood pressure was noted to be in the systolic 80s. His oxygenation was noted to be 89% on room air. He was placed on nonrebreather. Patient was lethargic but he was following commands and responding to questions. Patient was started on a 1 L bolus of normal larry ine. Due to the fact that his oxygenation continued to desat in the 80s stat ABG was ordered,, which came back within normal values. He was put on nonrebreather resulting in 100% oxygenation. Patient's blood pressure however continued to drop into the 70s systolic. And he was noted to be tachycardic at approximately 106. Vitals: See above General: Patient sitting upright in bed he does appear lethargic and weak. He is asking for a bedpan CVS: Sinus tachycardia Lungs: Coarse breath sounds bilaterally, no wheezing GI: Coffee-ground emesis noted on the bathroom floor as well as tarry stools in the toilet Neuro: Alert and awake Assessment and plan: #1 near syncope: Secondary to GI bleed. Will check a stat CBC CMP PT and PTT, stat chest x-ray. He has been transfused 1 unit of normal saline. Will also order 1 unit of packed red blood cells given his hemodynamics. Patient did a gree to blood transfusion and understood the risks and benefits. #2 GI bleed: Coffee-ground emesis with black tarry stool, Protonix drip #3 hypotension: Secondary to GI bleed/vasovagal. At the current time we will give him normal saline bolus 1 L. Will 1 PRBC unit. Monitor blood pressures closely. #4 hypoxia: We will check stat chest x-ray, ABGs within normal values. Cervical possible aspiration given the fact that he had coffee-ground emesis versus other. Given the patient's respiratory status as well as hypotension and GI bleed will transfer the patient to the ICU for closer level of care. Treatment strategy will be implemented as per the clinical course Greater than 35 minutes of critical care time was spent on care management this patient. CARLOS WYNN Jul 30, 2018 03:24
[2018-07-30] MEDS: PANTOPRAZOLE IV 80 MG in SOD CHLORIDE 0.9% 100 ML IV SCH ×3 (03:53→21:46)
[2018-07-30] MEDS ORDERED: SOD CHLORIDE 0.9% 1,000 ML IV ONE (04:00)
[2018-07-30] MEDS: NORepinephrine 8MG/250 ML (PMX 250 ML IV SCH (04:10)
[2018-07-30] MEDS: ALBUMIN HUMAN 25% 100 ML IV SCH ×2 (04:53→06:00)
[2018-07-30] MEDS ORDERED: LIDOCAINE 1% (MPF) 5 ML VIAL SC ONE (05:30)
--- NOTE | 2018-07-30 07:49 | CONS ---
Assessment/Plan Assessment/Plan Hospital Course (Demo Recall) 63-year-old man with a history of bronchial asthma, hypertension, dyslipidemia and pancreatitis, who presented to the ER complaining of abdominal pain. The pain is confined to the epigastric area radiating to both upper quadrants. No nausea, no vomiting. He definitely complains of dysphagia to solid food and anorexia and he lost 16 pounds in 1 month. The patient's CAT scan showed early cirrhosis and also pancreatitis and Large colonic stool burden. Interval hx: Hgb 11.9->9.6. Overnight patient was on medical surgical floor and went to have bowel movement. Pt passed out and had bloody stool per [employer] report to RN. He was transferred to ICU. Hypotensive. On levophed gtt. HR 110. WBC wnl. Pt states he hasn't been able to have a proper bm in months and had a desire to have one last night. He felt intense abdominal pain and next thing he remembers is waking up with bm and blood everywhere in the bed. Currently he denies abd pain. No PTP. He is also on a protonix gtt. EGD done 07/29 shows necrotizing duodenal ulcer, gastritis, multiple linear esophageal ulcers, esophagitis. IMPRESSION: 1. Epigastric pain -s/p EGD 07/29 2. Dysphagia to solid food. Rule out malignancy, especially esophageal stricture. 3. Cachexia. 4. Hypertension. 5. History of bronchial asthma. 6. Necrotizing duodenal ulcer 7. Multiple linear esophageal ulcers 8. Gastritis 9. Esophagitis PLAN: ST343iu/hr One unit PRBC for hgb less than 7.0 Q 6 hour HH Pending lactic acid Dulcolax 10 mg WI x 1 Continue NPO Continue Protonix gtt x 72 hours (started 3/4 night) Patient examined and plan of care discussed with Dr Lassiter Consultation Date/Type/Reason Admit Date/Time Jul 26, 2018 at 22:49 Initial Consult Date Date/Time of Note DATE: 07/30/18 TIME: 07:26 Exam/Review of Systems Exam Vitals Vital Signs Date Temp Pulse Resp B/P (MAP) Pulse Ox O2 O2 Flow FiO2 Time Delivery Rate 07/30/18 110 29 96/66 (76) 93 Nasal 6.0 06:00 Cannula 07/30/18 97.5 03:00 07/30/18 100 02:30 Intake and Output 07/29/18 07/29/18 07/30/18 1515:00 23:00 07:00 IntakeIntake Total 500 ml 1507.25 ml OutputOutput Total 300 ml 530 ml 50 ml BalanceBalance -300 ml -30 ml 1457.25 ml Constitutional: alert, oriented Head: normocephalic Eyes: PERRL ENMT: other (no teeth) Respiratory: clear to auscultation Cardiovascular: other (tachycardic) Gastrointestinal: soft, non-tender, bowel sounds Musculoskeletal: muscle weakness Neurological: nl mental status Results Result Diagram: 07/30/18 0240 07/30/18 0240 Results 24hrs Laboratory Tests Test 07/29/18 10:05 07/30/18 02:26 07/30/18 02:39 07/30/18 02:40 CA 19-9 Antigen 24.4 Bedside Glucose 141 Blood Gas Specimen Blood arterial Source Arterial Blood 07/30/2018 2:30:20 Date Drawn AM Arterial Blood pH 7.434 (Temp corrected) Arterial Blood 39.4 pCO2 (Temp correct) Arterial Blood pO2 80.9 (Temp corrected) Arterial Blood 25.8 HCO3 Arterial Blood 1.5 Base Excess Arterial Blood 96.0 Oxygen Saturation Torey Test ACCEPTAB Arterial Blood Gas Right Radial Puncture Site Arterial 0.3 Blood Carboxyhemog lobin Arterial Blood 0.1 Methemoglobin Blood Gas A-a O2 592.7 H Differential Oxyhemoglobin 95.6 Percent Blood Gas 37.0 Temperature Blood Gas Modality MASK - NRB FiO2 100.0 Blood Gas Notified MM Whom Blood Gas Notified 07/30/2018 2:45:54 Time AM White Blood Count 8.2 # Red Blood Count 3.51 L Hemoglobin 9.6 L Hematocrit 30.4 L Mean Corpuscular 86.6 Volume Mean Corpuscular 27.4 L Hemoglobin Mean Corpuscular 31.6 L Hemoglobin Concent Red Cell 15.2 H Distribution Width Platelet Count 268 Mean Platelet 9.8 Volume Immature 0.500 H Granulocytes % Neutrophils % 45.5 Lymphocytes % 47.2 Monocytes % 5.9 Eosinophils % 0.7 Basophils % 0.2 Nucleated Red 0.0 Blood Cells % Immature 0.040 H Granulocytes # Neutrophils # 3.7 Lymphocytes # 3.9 H Monocytes # 0.5 Eosinophils # 0.1 Basophils # 0.0 Nucleated Red 0.0 Blood Cells # Prothrombin Time 13.1 Prothrombin Time 1.0 Ratio INR International 0.98 Normalized Ratio Activated 27.[address] Time Sodium Level 132 L Potassium Level 4.2 Chloride Level 97 Carbon Dioxide 26 Level Anion Gap 9 Blood Urea 33 #H Nitrogen Creatinine 1.07 Est Glomerular > 60 Filtrat Rate mL/min Glucose Level 148 Calcium Level 8.8 Total Bilirubin 0.0 L Direct Bilirubin 0.00 Indirect Bilirubin 0.0 Aspartate Amino 48 H Transf (AST/SGOT) Alanine 42 Aminotransferase ( ALT/SGPT) Alkaline 77 Phosphatase Total Protein 6.2 Albumin 3.0 L Globulin 3.20 Albumin/Globulin 0.93 Ratio Medications Medication Current Medications IV Flush (NS 3 ml) 3 ml PER PROTOCOL IV ; Start 07/27/18 at 02:00 Ondansetron HCl (Zofran Inj) 4 mg Q6H PRN IV NAUSEA/VOMITING; Start 07/27/18 at 02:00 Acetaminophen (Tylenol Tab) 650 mg Q6H PRN PO .PAIN 1-3 OR TEMP; Start 07/27/18 at 02:00 Acetaminophen/ Hydrocodone Bitart ([place] (5/325)) 1 tab Q6H PRN PO .MOD PAIN 4- 6 Last administered on 07/28/18at 15:23; Admin Dose 1 TAB; Start 07/27/18 at 02:00 Acetaminophen/ Hydrocodone Bitart ([place] (5/325)) 2 tab Q6H PRN PO .SEVERE PAIN 7-10 Last administered on 07/29/18at 23:28; Admin Dose 2 TAB; Start 07/27/18 at 02:00 Docusate Sodium (Colace) 100 mg BID PO Last administered on 07/29/18at 23:28; Admin Dose 100 MG; Start 07/29/18 at 23:30 Polyethylene Glycol (Miralax) 17 gm DAILY PO ; Start 07/30/18 at 09:00 Pantoprazole 80 mg/Sodium Chloride 100 ml @ 10 mls/hr Q10H IV Last administered on 07/30/18at 03:53; Admin Dose 10 MLS/HR; Start 07/30/18 at 02:30 Norepinephrine 250 ml @ 1.875 mls/ hr TITRATE IV Last administered on 07/30/18at 04:10; Admin Dose 11.25 MLS/HR; Start 07/30/18 at 04:00 CHIQUI NDIAYE Jul 30, 2018 07:49
[2018-07-30] MEDS ORDERED: LACTATED RINGER'S 1,000 ML IV SCH (08:00)
[2018-07-30] MEDS ORDERED: BISACODYL 10 MG SUPP PR ONE (08:30)
--- NOTE | 2018-07-30 09:02 | PN ---
Date/Time of Note Date/Time of Note DATE: 07/30/18 TIME: 08:58 Assessment/Plan VTE Prophylaxis Risk score (from Ns)>0 risk: 5 SCD applied (from Ns): No SCD contraindicated: other Pharmacological prophylaxis: NA/contraindicated Pharm contraindication: bleeding Lines/Catheters IV Catheter Type (from [facility]): Peripheral IV Urinary Cath still in place: No Assessment/Plan Hospital Course SUBJECTIVE: Denies any abdominal pain at this time. Currently on IV pressors. OBJECTIVE: Physical Exam General: Thin, frail looking, 63 year-old male lying in bed in no apparent distress. HEENT: Normocephalic, atraumatic. Eyes: Anicteric sclerae, conjunctivae clear. ENT: Nasal septum midline, oral mucosa moist. Neck supple, no JVD noticed. Respiratory: Bilaterally diminished breath sounds. Minimal use of accessory muscles of respiration. Cardiovascular: S1, S2 heard. Regular rate and rhythm. Abdomen: Soft and scaphoid. Nontender, and nondistended. Bowel sounds positive in all 4 quadrants. Genitourinary: Deferred. Extremities: No cyanosis, no clubbing, no edema. Peripheral pulses palpable. Neurologic: Cranial nerves II through XII grossly intact. The patient is awake, alert, and oriented. Skin: Normal skin turgor. No skin rashes. Labs & Vitals per chart ASSESSMENT & PLAN 63-year-old male with past medical history of hypertension, asthma, dyslipidemia, and pancreatitis who came to the emergency room with epigastric pain and unintentional weight loss with the CT scan showing contracted gallbl adder wall with possible wall thickening and some fluid adjacent to the gallbladder and duodenum with small 9 mm dense or enhancing focus adjacent to the gallbladder. The patient was admitted to inpatient setting for further treatment and evaluation. The patient was initially on the medical surgical floor. The patient was moved to intensive care unit on 07/30/2018 after a rapid response was called because of significant gastrointestinal bleeding with resultant hypotension. 1. Epigastric pain. -Etiology unclear. -Gallbladder ultrasound negative for any gallstones. LFTs within normal limits. -Being followed by gastroenterology. -Status post esophagogastroduodenoscopy on 07/29/2018 that showed necrotizing duodenal ulcer, gastritis, multiple esophageal ulcers, and esophagitis. -Continue PPI and Carafate. 2. Dysphagia to solid foods. -Being followed by gastroenterology. -Status post esophagogastroduodenoscopy on 07/29/2018 that showed esophagitis and esophageal ulcers. 3. Melena with hypotension episode on 07/29/2018. -The patient was moved to intensive care unit after rapid response. -The patient was started on Levophed drip. -Being followed by gastroenterology. -Plan for colonoscopy on 07/31/2018. 4. Anemia of acute blood loss. -Transfuse blood products as needed. 5. Shock. -Most probably hypovolemic shock secondary to acute blood loss. -Start empiric antibiotics since the patient has underlying lactic acidosis. -Continue IV pressors. -Continue IV fluids. 6. Acute respiratory failure. -Hypoxic -Etiology unclear. -Continue supplemental oxygen and inhaled bronchodilators. -Pulmonary evaluation. 7. History of dyslipidemia. -Fasting lipid panel satisfactory. 8. Severe protein calorie malnutrition. -Being evaluated for any underlying malignancy. -Dietary consult. 9. Fluids, electrolytes, and nutrition. -N.p.o. 10. DVT prophylaxis -B/L SCDs. -No heparin because of bleeding. 11. Plan. -Continue PPI. -Monitor serial H&H. -Start empiric antimicrobials. -Wean off pressors as tolerated. Critical care time: 35 mins. The patient was seen in collaboration with Dr. Barakat. Result Diagram: 07/30/18 0240 07/30/18 0240 Results 24hrs Laboratory Tests Test 07/29/18 10:05 07/30/18 02:26 07/30/18 02:39 07/30/18 02:40 CA 19-9 Antigen 24.4 Bedside Glucose 141 Blood Gas Specimen Blood arterial Source Arterial Blood 07/30/2018 2:30:20 Date Drawn AM Arterial Blood pH 7.434 (Temp corrected) Arterial Blood 39.4 pCO2 (Temp correct) Arterial Blood pO2 80.9 (Temp corrected) Arterial Blood 25.8 HCO3 Arterial Blood 1.5 Base Excess Arterial Blood 96.0 Oxygen Saturation Torey Test ACCEPTAB Arterial Blood Gas Right Radial Puncture Site Arterial 0.3 Blood Carboxyhemog lobin Arterial Blood 0.1 Methemoglobin Blood Gas A-a O2 592.7 H Differential Oxyhemoglobin 95.6 Percent Blood Gas 37.0 Temperature Blood Gas Modality MASK - NRB FiO2 100.0 Blood Gas Notified MM Whom Blood Gas Notified 07/30/2018 2:45:54 Time AM White Blood Count 8.2 # Red Blood Count 3.51 L Hemoglobin 9.6 L Hematocrit 30.4 L Mean Corpuscular 86.6 Volume Mean Corpuscular 27.4 L Hemoglobin Mean Corpuscular 31.6 L Hemoglobin Concent Red Cell 15.2 H Distribution Width Platelet Count 268 Mean Platelet 9.8 Volume Immature 0.500 H Granulocytes % Neutrophils % 45.5 Lymphocytes % 47.2 Monocytes % 5.9 Eosinophils % 0.7 Basophils % 0.2 Nucleated Red 0.0 Blood Cells % Immature 0.040 H Granulocytes # Neutrophils # 3.7 Lymphocytes # 3.9 H Monocytes # 0.5 Eosinophils # 0.1 Basophils # 0.0 Nucleated Red 0.0 Blood Cells # Prothrombin Time 13.1 Prothrombin Time 1.0 Ratio INR International 0.98 Normalized Ratio Activated 27.[address] Time Sodium Level 132 L Potassium Level 4.2 Chloride Level 97 Carbon Dioxide 26 Level Anion Gap 9 Blood Urea 33 #H Nitrogen Creatinine 1.07 Est Glomerular > 60 Filtrat Rate mL/min Glucose Level 148 Calcium Level 8.8 Total Bilirubin 0.0 L Direct Bilirubin 0.00 Indirect Bilirubin 0.0 Aspartate Amino 48 H Transf (AST/SGOT) Alanine 42 Aminotransferase ( ALT/SGPT) Alkaline 77 Phosphatase Total Protein 6.2 Albumin 3.0 L Globulin 3.20 Albumin/Globulin 0.93 Ratio Test 07/30/18 07:51 Lactic Acid Level 2.1 *H Exam/Review of Systems Exam Vitals Vital Signs Date Temp Pulse Resp B/P (MAP) Pulse Ox O2 O2 Flow FiO2 Time Delivery Rate 07/30/18 110 29 96/66 (76) 93 Nasal 6.0 06:00 Cannula 07/30/18 97.5 03:00 07/30/18 100 02:30 Intake and Output 07/29/18 07/29/18 07/30/18 1515:00 23:00 07:00 IntakeIntake Total 500 ml 1507.25 ml OutputOutput Total 300 ml 530 ml 50 ml BalanceBalance -300 ml -30 ml 1457.25 ml Results Results 24hrs Laboratory Tests Test 07/29/18 10:05 07/30/18 02:26 07/30/18 02:39 07/30/18 02:40 CA 19-9 Antigen 24.4 Bedside Glucose 141 Blood Gas Specimen Blood arterial Source Arterial Blood 07/30/2018 2:30:20 Date Drawn AM Arterial Blood pH 7.434 (Temp corrected) Arterial Blood 39.4 pCO2 (Temp correct) Arterial Blood pO2 80.9 (Temp corrected) Arterial Blood 25.8 HCO3 Arterial Blood 1.5 Base Excess Arterial Blood 96.0 Oxygen Saturation Torey Test ACCEPTAB Arterial Blood Gas Right Radial Puncture Site Arterial 0.3 Blood Carboxyhemog lobin Arterial Blood 0.1 Methemoglobin Blood Gas A-a O2 592.7 H Differential Oxyhemoglobin 95.6 Percent Blood Gas 37.0 Temperature Blood Gas Modality MASK - NRB FiO2 100.0 Blood Gas Notified MM Whom Blood Gas Notified 07/30/2018 2:45:54 Time AM White Blood Count 8.2 # Red Blood Count 3.51 L Hemoglobin 9.6 L Hematocrit 30.4 L Mean Corpuscular 86.6 Volume Mean Corpuscular 27.4 L Hemoglobin Mean Corpuscular 31.6 L Hemoglobin Concent Red Cell 15.2 H Distribution Width Platelet Count 268 Mean Platelet 9.8 Volume Immature 0.500 H Granulocytes % Neutrophils % 45.5 Lymphocytes % 47.2 Monocytes % 5.9 Eosinophils % 0.7 Basophils % 0.2 Nucleated Red 0.0 Blood Cells % Immature 0.040 H Granulocytes # Neutrophils # 3.7 Lymphocytes # 3.9 H Monocytes # 0.5 Eosinophils # 0.1 Basophils # 0.0 Nucleated Red 0.0 Blood Cells # Prothrombin Time 13.1 Prothrombin Time 1.0 Ratio INR International 0.98 Normalized Ratio Activated 27.[address] Time Sodium Level 132 L Potassium Level 4.2 Chloride Level 97 Carbon Dioxide 26 Level Anion Gap 9 Blood Urea 33 #H Nitrogen Creatinine 1.07 Est Glomerular > 60 Filtrat Rate mL/min Glucose Level 148 Calcium Level 8.8 Total Bilirubin 0.0 L Direct Bilirubin 0.00 Indirect Bilirubin 0.0 Aspartate Amino 48 H Transf (AST/SGOT) Alanine 42 Aminotransferase ( ALT/SGPT) Alkaline 77 Phosphatase Total Protein 6.2 Albumin 3.0 L Globulin 3.20 Albumin/Globulin 0.93 Ratio Test 07/30/18 07:51 Lactic Acid Level 2.1 *H Medications Medication Current Medications IV Flush (NS 3 ml) 3 ml PER PROTOCOL IV ; Start 07/27/18 at 02:00 Ondansetron HCl (Zofran Inj) 4 mg Q6H PRN IV NAUSEA/VOMITING; Start 07/27/18 at 02:00 Acetaminophen (Tylenol Tab) 650 mg Q6H PRN PO .PAIN 1-3 OR TEMP; Start 07/27/18 at 02:00 Acetaminophen/ Hydrocodone Bitart ([place]ichols (5/325)) 1 tab Q6H PRN PO .MOD PAIN 4- 6 Last administered on 07/28/18 15:23; Admin Dose 1 TAB; Start 07/27/18 at 02:00 Acetaminophen/ Hydrocodone Bitart ([place]ichols (5/325)) 2 tab Q6H PRN PO .SEVERE PAIN 7-10 Last administered on 07/29/18 23:28; Admin Dose 2 TAB; Start 07/27/18 at 02:00 Docusate Sodium (Colace) 100 mg BID PO Last administered on 07/29/18 23:28; Admin Dose 100 MG; Start 07/29/18 at 23:30 Polyethylene Glycol (Miralax) 17 gm DAILY PO ; Start 07/30/18 at 09:00 Pantoprazole 80 mg/Sodium Chloride 100 ml @ 10 mls/hr Q10H IV Last administered on 07/30/18 03:53; Admin Dose 10 MLS/HR; Start 07/30/18 at 02:30 Norepinephrine 250 ml @ 1.875 mls/ hr TITRATE IV Last administered on 07/30/18 04:10; Admin Dose 11.25 MLS/HR; Start 07/30/18 at 04:00 Lactated Ringer's 1,000 ml @ 125 mls/hr Q8H IV Last administered on 07/30/18 08:40; Admin Dose 125 MLS/HR; Start 07/30/18 at 08:00 RADHA LI NP Jul 30, 2018 09:02
[2018-07-30] MEDS: DOCUSATE SODIUM 100 MG CAP PO SCH ×2 (09:42→21:07)
[2018-07-30] MEDS: POLYETHYLENE GLYCOL 17 GM PACKET PO SCH (09:43)
[2018-07-30] MEDS ORDERED: VANCOMYCIN IV PER PHARMACY XX SCH (11:30)
--- NOTE | 2018-07-30 13:00 | CONS ---
DATE OF ADMISSION: 07/26/2018 DATE OF CONSULTATION: 07/30/2018 REASON FOR CONSULTATION: Shortness of breath. Thank you, Dr. Anne, for this consultation. HISTORY OF PRESENT ILLNESS: This is a 63-year-old gentleman originally admitted on 07/26/2018 with a bdominal pain and difficulty swallowing. He had CT of the abdomen demonstrated gallbladder thickenin g. Also, there is a history of significant weight loss, approximately 16 pounds over the past few mo nths. Overnight, patient had worsening respiratory distress and hypotension requiring volume resusci tation and initiation of vasopressor support and transferred to intensive care unit. Here he has ext ensive bilateral infiltrates, hypoxemia requiring 6 liters O2. The patient has been n.p.o. this whol e time. No concern for aspiration at this period of time. PAST MEDICAL HISTORY: Cachexia, hypertension, history of asthma, questionable COPD. MEDICATIONS: Per chart. ALLERGIES: None. SOCIAL HISTORY: Ex-smoker, no alcohol, no history of drug use. FAMILY HISTORY: Noncontributory. SYSTEMS REVIEW: A 12-point review of systems was negative other than mentioned above. PHYSICAL EXAMINATION: GENERAL: Thin gentleman, comfortable at rest, no acute distress. VITAL SIGNS: Currently afebrile, pulse is 100, blood pressure 100/70, O2 saturation 96% on 5 liters. NECK: Supple. No JVD. CARDIAC: S1, S2, no added sounds or murmurs. CHEST: Diminished air entry bilaterally. ABDOMEN: Soft, nontender. No guarding or rebound. EXTREMITIES: No cyanosis, clubbing or edema. NEUROLOGIC: Generalized weakness. LABORATORIES: White count 10.2, hemoglobin 10, platelets within normal limits. BUN 33, creatinine 1 .07. Lactic acid 2.1. Hep B negative. IMPRESSION AND PLAN: Progressive hypoxemia likely secondary to healthcare-associated pneumonia versu s pulmonary edema given rapid onset, negative chest x-ray on admission. In addition, significant cac hexia and weight loss concerning for underlying malignancy. The patient will require: 1. Supplemental O2. 2. Bronchodilators. 3. Antibiotics. 4. CT chest when stable. 5. Vasopressor support. 6. PICC line placement. 7. Deep venous thrombosis and gastrointestinal prophylaxis. Dictated By: MARYANN STANLEY/TIMOTHY Conf#: [id number] DID#: [id number] CC: KAMERON TINSLEY MD;*EndCC*
[2018-07-30] MEDS: PIPER-TAZO 3.375 GM IV (PMX) 100 ML IVPB SCH ×3 (13:56→23:36)
[2018-07-30] MEDS: SOD CHLORIDE 0.9% 1,000 ML IV SCH ×2 (13:56→22:30)
[2018-07-30] MEDS ORDERED: VANCOMYCIN HCL 1.25 GM in SOD CHLORIDE 0.9% 250 ML IVPB SCH (14:00)
[2018-07-30] MEDS: LEVALBUTEROL (NEB) 0.63 MG/3 ML AMP HHN SCH ×2 (14:14→20:50)
[2018-07-30] MEDS ORDERED: SOD CHLORIDE 0.9% 500 ML IV ONE (21:30)
[2018-07-30] MEDS: PHENYLephrine 20MG IN 250 ML 250 ML IV SCH ×2 (21:53→21:55)
[2018-07-31] VITALS (73 sets, daily range): BP systolic 84–127; BP diastolic 53–82; PULSE 102–130; RESP 18–54
[2018-07-31] MEDS: SOD CHLORIDE 0.9% 1,000 ML IV SCH ×3 (01:32→23:21)
[2018-07-31] MEDS: LEVALBUTEROL (NEB) 0.63 MG/3 ML AMP HHN SCH ×4 (01:33→20:06)
[2018-07-31] MEDS: VANCOMYCIN 750 MG (PMX) 250 ML IVPB SCH ×2 (02:01→13:17)
[2018-07-31] MEDS: PIPER-TAZO 3.375 GM IV (PMX) 100 ML IVPB SCH ×4 (05:50→23:35)
--- NOTE | 2018-07-31 08:52 | PN ---
Date/Time of Note Date/Time of Note DATE: 07/31/18 TIME: 08:51 Assessment/Plan VTE Prophylaxis Risk score (from Ns)>0 risk: 7 [place] [facility] [place] Pharmacological prophylaxis: NA/contraindicated Pharm contraindication: bleeding Lines/Catheters IV Catheter Type (from [facility]): PICC Line Central line still needed: Yes Urinary Cath still in place: No Assessment/Plan Hospital Course SUBJECTIVE: Denies any abdominal pain at this time. Currently on IV pressors. No more episodes of melena. OBJECTIVE: Physical Exam General: Thin, frail looking, 63 year-old male lying in bed in no apparent distress. HEENT: Normocephalic, atraumatic. Eyes: Anicteric sclerae, conjunctivae clear. ENT: Nasal septum midline, oral mucosa moist. Neck supple, no JVD noticed. Respiratory: Bilaterally diminished breath sounds. No use of accessory muscles of respiration. Cardiovascular: S1, S2 heard. Regular rate and rhythm. Abdomen: Soft and scaphoid. Nontender, and nondistended. Bowel sounds positive in all 4 quadrants. Genitourinary: Deferred. Extremities: No cyanosis, no clubbing, no edema. Peripheral pulses palpable. Neurologic: Cranial nerves II through XII grossly intact. The patient is awake, alert, and oriented. Skin: Normal skin turgor. No skin rashes. Labs & Vitals per chart ASSESSMENT & PLAN 63-year-old male with past medical history of hypertension, asthma, dyslipidemia, and pancreatitis who came to the emergency room with epigastric pain and unintentional weight loss with the CT scan showing contracted gallbladder wall with possible wall thickening and some fluid adjacent to the gallbladder and duodenum with small 9 mm dense or enhancing focus adjacent to the gallbladder. The patient was admitted to inpatient setting for further treatment and evaluation. The patient was initially on the medical surgical floor. The patient was moved to intensive care unit on 07/30/2018 after a rapid response was called because of significant gastrointestinal bleeding with resultant hypotension. 1. Epigastric pain. -Etiology unclear. -Gallbladder ultrasound negative for any gallstones. LFTs within normal limits. -Being followed by gastroenterology. -Status post esophagogastroduodenoscopy on 07/29/2018 that showed necrotizing duodenal ulcer, gastritis, multiple esophageal ulcers, and esophagitis. -Continue PPI and Carafate. 2. Dysphagia to solid foods. -Being followed by gastroenterology. -Status post esophagogastroduodenoscopy on 07/29/2018 that showed esophagitis and esophageal ulcers. 3. Melena with hypotension episode on 07/30/2018. -The patient was moved to intensive care unit after rapid response. -The patient was started on Levophed drip. -Being followed by gastroenterology. 4. Anemia of acute blood loss. -Transfuse blood products as needed. 5. Shock on 07/30/2018. -Most probably hypovolemic shock secondary to acute blood loss. -Start empiric antibiotics since the patient has underlying lactic acidosis. -Continue IV pressors. -Continue IV fluids. 6. Acute respiratory failure. -Hypoxic -Etiology unclear. -Continue supplemental oxygen and inhaled bronchodilators. -Pulmonary evaluation. 7. History of dyslipidemia. -Fasting lipid panel satisfactory. 8. Severe protein calorie malnutrition. -Being evaluated for any underlying malignancy. -Dietary consult. 9. Fluids, electrolytes, and nutrition. -N.p.o. -IVFs. 10. DVT prophylaxis -B/L SCDs. -No heparin because of bleeding. 11. Plan. -Continue PPI. -Monitor serial H&H. -Continue empiric antimicrobials. -Wean off pressors as tolerated. Critical care time: 35 mins. The patient was seen in collaboration with Dr. Barakat. Result Diagram: 07/31/18 0329 07/31/18 0329 Results 24hrs Laboratory Tests Test 07/30/18 11:35 07/30/18 11:43 07/30/18 11:46 07/30/18 11:47 Phosphorus Level 1.9 L Magnesium Level 1.9 Alpha Fetoprotein 2.09 White Blood Count 10.2 # Red Blood Count 3.57 L Hemoglobin 10.0 L Hematocrit 30.5 L Mean Corpuscular 85.4 Volume Mean Corpuscular 28.0 L Hemoglobin Mean Corpuscular 32.8 Hemoglobin Concent Red Cell 14.9 H Distribution Width Platelet Count 194 # Mean Platelet 10.2 Volume Immature 0.200 Granulocytes % Neutrophils % Segmented 38 L Neutrophils % (Manual) Band Neutrophils % 45 H (Manual) Lymphocytes % Lymphocytes % 11 L (Manual) Monocytes % Monocytes % 6 (Manual) Eosinophils % Basophils % Nucleated Red Blood 0.0 Cells % Immature 0.020 Granulocytes # Neutrophils # Neutrophils # 4.3 (Manual) Band Neutrophils # 4.5 H Lymphocytes 1.1 (Manual) Lymphocytes # Monocytes # Monocytes # 0.6 (Manual) Eosinophils # Basophils # Nucleated Red Blood Cells # Platelet Estimate NORMAL Target Cells 1+ Ovalocytes 1+ Schistocytes 1+ Sodium Level 134 L Potassium Level 4.3 Chloride Level 105 Carbon Dioxide 24 Level Anion Gap 5 Blood Urea Nitrogen 36 H Creatinine 0.84 Est Glomerular > 60 Filtrat Rate mL/min Glucose Level 134 Lactic Acid Level 2.2 *H Calcium Level 8.4 Total Bilirubin 0.7 Direct Bilirubin 0.00 Indirect Bilirubin 0.7 Aspartate Amino 30 Transf (AST/SGOT) Alanine 29 Aminotransferase (A LT/SGPT) Alkaline 41 L Phosphatase B-Type Natriuretic 86 Peptide Total Protein 5.1 #L Albumin 2.7 L Globulin 2.40 Albumin/Globulin 1.12 Ratio Test 07/30/18 17:35 07/30/18 19:29 07/31/18 00:16 07/31/18 03:29 White Blood Count 12.9 #H 15.8 #H Red Blood Count 3.09 L 2.85 L Hemoglobin 8.9 L 9.3 L 8.4 L 8.0 L Hematocrit 26.9 L 28.5 L 25.7 L 24.0 L Mean Corpuscular 87.1 84.2 Volume Mean Corpuscular 28.8 L 28.1 L Hemoglobin Mean Corpuscular 33.1 33.3 Hemoglobin Concent Red Cell 15.0 H 15.1 H Distribution Width Platelet Count 189 167 Mean Platelet 10.4 10.1 Volume Immature 0.500 H 0.400 Granulocytes % Neutrophils % Segmented 45 53 Neutrophils % (Manual) Band Neutrophils % 42 H 33 H (Manual) Lymphocytes % Lymphocytes % 8 L 9 L (Manual) Monocytes % Monocytes % 5 4 (Manual) Eosinophils % Basophils % Nucleated Red Blood 0.0 0.0 Cells % Immature 0.060 H 0.070 H Granulocytes # Neutrophils # Neutrophils # 6.5 9.2 H (Manual) Band Neutrophils # 5.4 H 5.2 H Lymphocytes 1.0 1.4 (Manual) Lymphocytes # Monocytes # Monocytes # 0.6 0.6 (Manual) Eosinophils # Basophils # Nucleated Red Blood Cells # Platelet Estimate NORMAL NORMAL Hypochromasia 1+ 1+ Poikilocytosis 2+ Metamyelocytes % 1 H (manual) Metamyelocytes # 0.1 H Giant Platelets 1 H Sodium Level 137 Potassium Level 3.9 Chloride Level 108 Carbon Dioxide 24 Level Anion Gap 5 Blood Urea Nitrogen 20 # Creatinine 0.87 Est Glomerular > 60 Filtrat Rate mL/min Glucose Level 92 # Lactic Acid Level 1.3 Calcium Level 8.5 Phosphorus Level 2.4 L Magnesium Level 1.8 Total Bilirubin 0.5 Direct Bilirubin 0.00 Indirect Bilirubin 0.5 Aspartate Amino 28 Transf (AST/SGOT) Alanine 35 Aminotransferase (A LT/SGPT) Alkaline 34 L Phosphatase Total Protein 4.4 L Albumin 2.3 L Globulin 2.10 Albumin/Globulin 1.09 Ratio Test 07/31/18 05:12 Lab Scanned Report BLOOD TRANSFUSION Exam/Review of Systems Exam Vitals Vital Signs Date Temp Pulse Resp B/P (MAP) Pulse Ox O2 O2 Flow FiO2 Time Delivery Rate 07/31/18 97 21 08:37 07/31/18 106 23 08:37 07/31/18 98/62 (74) 06:30 07/31/18 Room Air 06:00 07/31/18 98.3 04:00 07/31/18 2.0 02:00 Intake and Output 07/30/18 07/30/18 07/31/18 1515:00 23:00 07:00 IntakeIntake Total 745.205 ml 1738.74 ml 1202.5 ml OutputOutput Total 395 ml 620 ml 550 ml BalanceBalance 350.205 ml 1118.74 ml 652.5 ml Results Results 24hrs Laboratory Tests Test 07/30/18 11:35 07/30/18 11:43 07/30/18 11:46 07/30/18 11:47 Phosphorus Level 1.9 L Magnesium Level 1.9 Alpha Fetoprotein 2.09 White Blood Count 10.2 # Red Blood Count 3.57 L Hemoglobin 10.0 L Hematocrit 30.5 L Mean Corpuscular 85.4 Volume Mean Corpuscular 28.0 L Hemoglobin Mean Corpuscular 32.8 Hemoglobin Concent Red Cell 14.9 H Distribution Width Platelet Count 194 # Mean Platelet 10.2 Volume Immature 0.200 Granulocytes % Neutrophils % Segmented 38 L Neutrophils % (Manual) Band Neutrophils % 45 H (Manual) Lymphocytes % Lymphocytes % 11 L (Manual) Monocytes % Monocytes % 6 (Manual) Eosinophils % Basophils % Nucleated Red Blood 0.0 Cells % Immature 0.020 Granulocytes # Neutrophils # Neutrophils # 4.3 (Manual) Band Neutrophils # 4.5 H Lymphocytes 1.1 (Manual) Lymphocytes # Monocytes # Monocytes # 0.6 (Manual) Eosinophils # Basophils # Nucleated Red Blood Cells # Platelet Estimate NORMAL Target Cells 1+ Ovalocytes 1+ Schistocytes 1+ Sodium Level 134 L Potassium Level 4.3 Chloride Level 105 Carbon Dioxide 24 Level Anion Gap 5 Blood Urea Nitrogen 36 H Creatinine 0.84 Est Glomerular > 60 Filtrat Rate mL/min Glucose Level 134 Lactic Acid Level 2.2 *H Calcium Level 8.4 Total Bilirubin 0.7 Direct Bilirubin 0.00 Indirect Bilirubin 0.7 Aspartate Amino 30 Transf (AST/SGOT) Alanine 29 Aminotransferase (A LT/SGPT) Alkaline 41 L Phosphatase B-Type Natriuretic 86 Peptide Total Protein 5.1 #L Albumin 2.7 L Globulin 2.40 Albumin/Globulin 1.12 Ratio Test 07/30/18 17:35 07/30/18 19:29 07/31/18 00:16 07/31/18 03:29 White Blood Count 12.9 #H 15.8 #H Red Blood Count 3.09 L 2.85 L Hemoglobin 8.9 L 9.3 L 8.4 L 8.0 L Hematocrit 26.9 L 28.5 L 25.7 L 24.0 L Mean Corpuscular 87.1 84.2 Volume Mean Corpuscular 28.8 L 28.1 L Hemoglobin Mean Corpuscular 33.1 33.3 Hemoglobin Concent Red Cell 15.0 H 15.1 H Distribution Width Platelet Count 189 167 Mean Platelet 10.4 10.1 Volume Immature 0.500 H 0.400 Granulocytes % Neutrophils % Segmented 45 53 Neutrophils % (Manual) Band Neutrophils % 42 H 33 H (Manual) Lymphocytes % Lymphocytes % 8 L 9 L (Manual) Monocytes % Monocytes % 5 4 (Manual) Eosinophils % Basophils % Nucleated Red Blood 0.0 0.0 Cells % Immature 0.060 H 0.070 H Granulocytes # Neutrophils # Neutrophils # 6.5 9.2 H (Manual) Band Neutrophils # 5.4 H 5.2 H Lymphocytes 1.0 1.4 (Manual) Lymphocytes # Monocytes # Monocytes # 0.6 0.6 (Manual) Eosinophils # Basophils # Nucleated Red Blood Cells # Platelet Estimate NORMAL NORMAL Hypochromasia 1+ 1+ Poikilocytosis 2+ Metamyelocytes % 1 H (manual) Metamyelocytes # 0.1 H Giant Platelets 1 H Sodium Level 137 Potassium Level 3.9 Chloride Level 108 Carbon Dioxide 24 Level Anion Gap 5 Blood Urea Nitrogen 20 # Creatinine 0.87 Est Glomerular > 60 Filtrat Rate mL/min Glucose Level 92 # Lactic Acid Level 1.3 Calcium Level 8.5 Phosphorus Level 2.4 L Magnesium Level 1.8 Total Bilirubin 0.5 Direct Bilirubin 0.00 Indirect Bilirubin 0.5 Aspartate Amino 28 Transf (AST/SGOT) Alanine 35 Aminotransferase (A LT/SGPT) Alkaline 34 L Phosphatase Total Protein 4.4 L Albumin 2.3 L Globulin 2.10 Albumin/Globulin 1.09 Ratio Test 07/31/18 05:12 Lab Scanned Report BLOOD TRANSFUSION Medications Medication Current Medications IV Flush (NS 3 ml) 3 ml PER PROTOCOL IV ; Start 07/27/18 at 02:00 Ondansetron HCl (Zofran Inj) 4 mg Q6H PRN IV NAUSEA/VOMITING; Start 07/27/18 at 02:00 Acetaminophen (Tylenol Tab) 650 mg Q6H PRN PO .PAIN 1-3 OR TEMP; Start 07/27/18 at 02:00 Acetaminophen/ Hydrocodone Bitart ([place] (5/325)) 1 tab Q6H PRN PO .MOD PAIN 4- 6 Last administered on 07/28/18at 15:23; Admin Dose 1 TAB; Start 07/27/18 at 02:00 Acetaminophen/ Hydrocodone Bitart ([place] (5/325)) 2 tab Q6H PRN PO .SEVERE PAIN 7-10 Last administered on 07/29/18at 23:28; Admin Dose 2 TAB; Start 07/27/18 at 02:00 Docusate Sodium (Colace) 100 mg BID PO Last administered on 07/30/18 21:07; Admin Dose 100 MG; Start 07/29/18 at 23:30 Polyethylene Glycol (Miralax) 17 gm DAILY PO Last administered on 07/30/18 09:43; Admin Dose 17 GM; Start 07/30/18 at 09:00 Pantoprazole 80 mg/Sodium Chloride 100 ml @ 10 mls/hr Q10H IV Last administere d on 07/30/18at 21:46; Admin Dose 10 MLS/HR; Start 07/30/18 at 02:30 Norepinephrine 250 ml @ 1.875 mls/ hr TITRATE IV Last administered on 07/30/18 04:10; Admin Dose 11.25 MLS/HR; Start 07/30/18 at 04:00 Levalbuterol (Xopenex Neb) 0.63 mg Q6H RESP THERAPY HHN Last administered on 07/31/18at 08:37; Admin Dose 0.63 MG; Start 07/30/18 at 14:00 Piperacillin Sod/ Tazobactam Sod 100 ml @ 200 mls/hr Q6 IVPB Last administered on 07/31/18at 05:50; Admin Dose 200 MLS/HR; Start 07/30/18 at 12:00 Vancomycin HCl (Vanco Iv Per Pharmacy) VANCOMYCIN PER PHARMACY PER PROTOCOL XX ; Start 07/30/18 at 11:30 Vancomycin/Sodium Chloride 250 ml @ 125 mls/hr Q12H IVPB Last administered on 07/31/18at 02:01; Admin Dose 125 MLS/HR; Start 07/31/18 at 02:00 Sodium Chloride 1,000 ml @ 100 mls/hr Q10H IV Last administered on 07/31/18at 01:32; Admin Dose 100 MLS/HR; Start 07/30/18 at 12:30 IV Flush (NS 10 ml) 10 ml PRN PRN IV IV PROTOCOL; Start 07/30/18 at 16:30 Phenylephrine HCl 250 ml @ 75 mls/hr TITRATE IV Last administered on 07/30/18at 21:55; Admin Dose 75 MLS/HR; Start 07/30/18 at 21:30 RADHA LI NP Jul 31, 2018 08:52
[2018-07-31] MEDS: DOCUSATE SODIUM 100 MG CAP PO SCH ×2 (10:37→21:00)
[2018-07-31] MEDS: PANTOPRAZOLE IV 80 MG in SOD CHLORIDE 0.9% 100 ML IV SCH ×2 (11:01→18:22)
[2018-07-31] MEDS: NORepinephrine 8MG/250 ML (PMX 250 ML IV SCH (11:30)
[2018-07-31] MEDS ORDERED: PEG/ELECTROLYTES 4L BTL PO ONE (12:00)
--- NOTE | 2018-07-31 12:29 | RADRPT ---
Echocardiogram Report Patient Name: CHARLOTTE CAMPOVERDEPatient ID: [id number] : 1955 (63y 5m)Study Date: 07/30/2018 1:51:46 PM Gender: MAccession #: [id number] Tech: DE Location: Ref.Physician: MARYANN SEGOVIA Height(Cm): BSA: Weight(Kg): Quality: Technically Difficult StudyAccount #: Procedures: Echocardiographic Report: Transthoracic echocardiogram with complete 2D, M-Mode, and doppler examination. Indications: Congestive Heart Failure. Measurements: 2D/M Mode Doppler Measurement Value Normal Range Measurement Value Normal Range LVIDd 2D 2.4 [ 4.2 - 5.8 ] cm AV Peak Dameon 1.1 [ 100.0 - 170.0 ] cm/sec LVIDs 2D 1.5 [ 2.5 - 4.0 ] cm AV Peak PG 5.0 [ 2.0 - 9.0 ] mmHg LVPWd 2D 0.9 [ 0.6 - 1.0 ] cm LVOT Peak [place] 0.7 [ 70.0 - 110.0 ] cm/sec IVSd 2D 1.2 [ 0.6 - 1.0 ] cm LVOT Peak PG 2.0 [ 2.0 - 6.0 ] mmHg IVS/LVPW 2D 1.3 ratio MV E Peak Dameon 0.5 [ 60.0 - 130.0 ] cm/sec AoR Diam 2D 2.6 [ 2.6 - 3.4 ] cm MV A Peak [place] 0.6 [ 100.0 - 120.0 ] cm/sec LA/Ao 2D 1 ratio MV E/A 0.8 [ 0.8 - 1.5 ] ratio LA Dimen 2D 2.4 [ 3.0 - 4.0 ] cm MV Decel Time 116 [ 104 - 258 ] msec Lat E` Dameon 0.1 [ 10.0 - 15.0 ] cm/sec MV E/A 0.8 [ 0.8 - 1.5 ] ratio TR Peak Dameon 3.2 [ 100.0 - 280.0 ] cm/sec TR Peak PG 40.0 mmHg RVSP 50.0 [ 10.0 - 36.0 ] mmHg RA Pressure 10.0 mmHg Findings: Left Ventricle: Overall, normal left ventricular systolic function. Not all segments visualized. Normal left ventricular cavity size. Mild concentric left ventricular hypertrophy. Ejection fraction is visually estimated at 60 %. Abnormal Diastolic Function. Right Ventricle: Normal right ventricular size. Normal right ventricular systolic function. Left Atrium: The left atrium is normal in size. Right Atrium: The right atrium is normal in size. Mitral Valve: Normal appearance and function of the mitral valve with trace physiologic regurgitation. Aortic Valve: No significant aortic stenosis or insufficiency. Aortic cusps appear mildly calcified. Trileaflet aortic valve. Tricuspid Valve: Normal appearance of the tricuspid valve. Estimated peak PA systolic pressure 50 mmHg. There is moderate tricuspid regurgitation. Pulmonic Valve: Normal pulmonic valve appearance. Pericardium: Normal pericardium with no significant pericardial effusion. Aorta: Normal aortic root. IVC: Normal size and normal respiratory collapse consistent with normal right atrial pressure. Conclusions: Overall, normal left ventricular systolic function. Not all segments visualized. Normal left ventricular cavity size. Mild concentric left ventricular hypertrophy. Ejection fraction is visually estimated at 60 %. Abnormal Diastolic Function. Normal appearance and function of the mitral valve with trace physiologic regurgitation. No significant aortic stenosis or insufficiency. Aortic cusps appear mildly calcified. Trileaflet aortic valve. Normal appearance of the tricuspid valve. Estimated peak PA systolic pressure 50 mmHg. There is moderate tricuspid regurgitation. very subotimal study with only limited views. Electronically Signed By: Jeffrey Urrutia 2018-07-31 12:28:36 PST
--- NOTE | 2018-07-31 17:16 | PREAC ---
Date/Time of Note Date/Time of Note DATE: 07/31/18 TIME: 17:15 Anesthesia Eval and Record Evaluation Time Pre-Procedure Interview DATE: 07/31/18 TIME: 17:15 Age 63 Sex male NPO: 8 hrs Preoperative diagnosis rectal bleeding Planned procedure colonoscopy Past Medical History Past Medical History: Includes Cardio: HTN, Dyslipidemia Pulm: Asthma Surgery & Anesthesia Issues No known issue Meds Anticoagulation: No Beta Sera within 24 hr: No Reason Beta Sera not given: Pt. not on B-Sera No Active Prescriptions or Reported Meds Current Medications IV Flush (NS 3 ml) 3 ml PER PROTOCOL IV ; Start 07/27/18 at 02:00 Ondansetron HCl (Zofran Inj) 4 mg Q6H PRN IV NAUSEA/VOMITING; Start 07/27/18 at 02:00 Acetaminophen (Tylenol Tab) 650 mg Q6H PRN PO .PAIN 1-3 OR TEMP; Start 07/27/18 at 02:00 Acetaminophen/ Hydrocodone Bitart ([place] (5/325)) 1 tab Q6H PRN PO .MOD PAIN 4- 6 Last administered on 07/28/18at 15:23; Admin Dose 1 TAB; Start 07/27/18 at 02:00 Acetaminophen/ Hydrocodone Bitart ([place] (5/325)) 2 tab Q6H PRN PO .SEVERE PAIN 7-10 Last administered on 07/29/18 23:28; Admin Dose 2 TAB; Start 07/27/18 at 0 2:00 Docusate Sodium (Colace) 100 mg BID PO Last administered on 07/31/18 10:37; Admin Dose 100 MG; Start 07/29/18 at 23:30 Polyethylene Glycol (Miralax) 17 gm DAILY PO Last administered on 07/30/18 09:43; Admin Dose 17 GM; Start 07/30/18 at 09:00 Pantoprazole 80 mg/Sodium Chloride 100 ml @ 10 mls/hr Q10H IV Last administered on 07/31/18 11:01; Admin Dose 10 MLS/HR; Start 07/30/18 at 02:30 Norepinephrine 250 ml @ 1.875 mls/ hr TITRATE IV Last administered on 07/31/18 11:30; Admin Dose 22.5 MLS/HR; Start 07/30/18 at 04:00 Levalbuterol (Xopenex Neb) 0.63 mg Q6H RESP THERAPY HHN Last administered on 07/31/18at 13:51; Admin Dose 0.63 MG; Start 07/30/18 at 14:00 Piperacillin Sod/ Tazobactam Sod 100 ml @ 200 mls/hr Q6 IVPB Last administered on 07/31/18at 13:17; Admin Dose 200 MLS/HR; Start 07/30/18 at 12:00 Vancomycin HCl (Vanco Iv Per Pharmacy) VANCOMYCIN PER PHARMACY PER PROTOCOL XX ; Start 07/30/18 at 11:30 Vancomycin/Sodium Chloride 250 ml @ 125 mls/hr Q12H IVPB Last administered on 07/31/18at 13:17; Admin Dose 125 MLS/HR; Start 07/31/18 at 02:00 Sodium Chloride 1,000 ml @ 100 mls/hr Q10H IV Last administered on 07/31/18at 01:32; Admin Dose 100 MLS/HR; Start 07/30/18 at 12:30 IV Flush (NS 10 ml) 10 ml PRN PRN IV IV PROTOCOL; Start 07/30/18 at 16:30 Phenylephrine HCl 250 ml @ 75 mls/hr TITRATE IV Last administered on 07/30/18at 21:55; Admin Dose 75 MLS/HR; Start 07/30/18 at 21:30 Miscellaneous Information (*Rx Drug Level Order Reminder*) VANCO TROUGH @ 0,100 ON... ONCE ONCE XX ; Start 08/01/18 at 01:00; Stop 08/01/18 at 01:01 Meds reviewed: Yes Allergies Coded Allergies: No Known Allergy (Unverified , 07/30/18) Allergies Reviewed: Yes Labs/Studies Labs Reviewed: Reviewed by anesthesiologist Result Diagram: 07/31/18 1217 07/31/18 0329 Laboratory Tests 07/31/18 03:29 07/31/18 12:17 test: N/A Studies: ECG (SR) Pre-procedure Exam Last vitals Vital Signs Date Temp Pulse Resp B/P (MAP) Pulse Ox O2 O2 Flow FiO2 Time Delivery Rate 07/31/18 124 37 116/71 100 16:45 (86) 07/31/18 98.1 16:00 07/31/18 Room Air 14:30 07/31/18 21 08:37 07/31/18 2.0 02:00 Airway: Adequate mouth opening Mallampati: Mallampati II Teeth: Abnormal (No teeth) Lung: Normal Heart: Normal ASA Physical Status ASA physical status: 2 Emergency: None Planned Anesthetic General/MAC: MAC Pre-operative Attestations Prior to commencing anesthesia and surgery, the patient was re-evaluated, there was verification of: *The patient's identity *The results of appropriate recent lab work and preoperative vital signs *The above evaluation not changing prior to induction *Anesthetic plan, risk benefits, alternative and complications discussed with patient/family; questions answered; patient/family understands, accepts and wishes to proceed. SWETHA HUYNH Jul 31, 2018 17:16
--- NOTE | 2018-07-31 18:07 | CONS ---
Assessment/Plan Assessment/Plan Assessment/Plan (Daily) IMPRESSION: 1. Epigastric pain -s/p EGD 07/29 2. Dysphagia to solid food. Rule out malignancy, especially esophageal stricture. 3. Cachexia. 4. Hypertension. 5. History of bronchial asthma. 6. Necrotizing duodenal ulcer 7. Multiple linear esophageal ulcers 8. Gastritis 9. Esophagitis 10 rectal bleeding PLAN: [id number] One unit PRBC for hgb less than 7.0 Q 6 hour HH Pending lactic acid Dulcolax 10 mg UT x 1 Continue NPO Continue Protonix gtt x 72 hours (started 3/4 night) Patient is scheduled for colonoscopy tomorrow. His condition appears to be stable. Consultation Date/Type/Reason Admit Date/Time Jul 26, 2018 at 22:49 Initial Consult Date Date/Time of Note DATE: 07/31/18 TIME: 18:06 24 HR Interval Summary Free Text/Dictation No abdominal pain, no rectal bleeding today Exam/Review of Systems Exam Vitals Vital Signs Date Temp Pulse Resp B/P (MAP) Pulse Ox O2 O2 Flow FiO2 Time Delivery Rate 07/31/18 124 37 116/71 100 16:45 (86) 07/31/18 98.1 16:00 07/31/18 Room Air 14:30 07/31/18 21 08:37 07/31/18 2.0 02:00 Intake and Output 07/30/18 07/30/18 07/31/18 1515:00 23:00 07:00 IntakeIntake Total 745.205 ml 1738.74 ml 1335.0 ml OutputOutput Total 395 ml 620 ml 750 ml BalanceBalance 350.205 ml 1118.74 ml 585.0 ml Constitutional: alert, oriented, well developed Psych: no complaints, nl mood/affect Head: normocephalic, atraumatic Eyes: nl conjunctiva, EOMI, nl lids, nl sclera, PERRL ENMT: nl external ears & nose, nl lips & teeth, nl nasal mucosa & septum Neck: supple, non-tender Respiratory: clear to auscultation, normal air movement Cardiovascular: regular rate and rhythm, nl pulses Gastrointestinal: soft, nl liver, spleen, non-tender Musculoskeletal: nl extremities to inspection, nl gait and stance Extremities: normal pulses Neurological: SKI TOPPER II-XII intact, nl mental status, nl speech, nl strength Skin: nl turgor; No rash or lesions Lymph: nl lymph nodes Results Result Diagram: 07/31/18 1217 07/31/18 0329 Results 24hrs Laboratory Tests Test 07/30/18 19:29 07/31/18 00:16 07/31/18 03:29 07/31/18 05:12 Hemoglobin 9.3 L 8.4 L 8.0 L Hematocrit 28.5 L 25.7 L 24.0 L White Blood Count 15.8 #H Red Blood Count 2.85 L Mean Corpuscular 84.2 Volume Mean Corpuscular 28.1 L Hemoglobin Mean Corpuscular 33.3 Hemoglobin Concent Red Cell 15.1 H Distribution Width Platelet Count 167 Mean Platelet 10.1 Volume Immature 0.400 Granulocytes % Neutrophils % Segmented 53 Neutrophils % (Manual) Band Neutrophils % 33 H (Manual) Lymphocytes % Lymphocytes % 9 L (Manual) Monocytes % Monocytes % 4 (Manual) Eosinophils % Basophils % Metamyelocytes % 1 H (manual) Nucleated Red Blood 0.0 Cells % Immature 0.070 H Granulocytes # Neutrophils # Neutrophils # 9.2 H (Manual) Band Neutrophils # 5.2 H Lymphocytes 1.4 (Manual) Lymphocytes # Monocytes # Monocytes # 0.6 (Manual) Eosinophils # Basophils # Metamyelocytes # 0.1 H Nucleated Red Blood Cells # Platelet Estimate NORMAL Giant Platelets 1 H Hypochromasia 1+ Sodium Level 137 Potassium Level 3.9 Chloride Level 108 Carbon Dioxide 24 Level Anion Gap 5 Blood Urea Nitrogen 20 # Creatinine 0.87 Est Glomerular > 60 Filtrat Rate mL/min Glucose Level 92 # Lactic Acid Level 1.3 Calcium Level 8.5 Phosphorus Level 2.4 L Magnesium Level 1.8 Total Bilirubin 0.5 Direct Bilirubin 0.00 Indirect Bilirubin 0.5 Aspartate Amino 28 Transf (AST/SGOT) Alanine 35 Aminotransferase (A LT/SGPT) Alkaline 34 L Phosphatase Total Protein 4.4 L Albumin 2.3 L Globulin 2.10 Albumin/Globulin 1.09 Ratio Lab Scanned Report BLOOD TRANSFUSION Test 07/31/18 12:17 Hemoglobin 7.6 L Hematocrit 23.1 L Medications Medication Current Medications IV Flush (NS 3 ml) 3 ml PER PROTOCOL IV ; Start 07/27/18 at 02:00 Ondansetron HCl (Zofran Inj) 4 mg Q6H PRN IV NAUSEA/VOMITING; Start 07/27/18 at 02:00 Acetaminophen (Tylenol Tab) 650 mg Q6H PRN PO .PAIN 1-3 OR TEMP; Start 07/27/18 at 02:00 Acetaminophen/ Hydrocodone Bitart ([place] (5/325)) 1 tab Q6H PRN PO .MOD PAIN 4- 6 Last administered on 07/28/18 15:23; Admin Dose 1 TAB; Start 07/27/18 at 02:00 Acetaminophen/ Hydrocodone Bitart ([place] (5/325)) 2 tab Q6H PRN PO .SEVERE PAIN 7-10 Last administered on 07/29/18 23:28; Admin Dose 2 TAB; Start 07/27/18 at 02:00 Docusate Sodium (Colace) 100 mg BID PO Last administered on 07/31/18 10:37; Admin Dose 100 MG; Start 07/29/18 at 23:30 Polyethylene Glycol (Miralax) 17 gm DAILY PO Last administered on 07/30/18 09:43; Admin Dose 17 GM; Start 07/30/18 at 09:00 Pantoprazole 80 mg/Sodium Chloride 100 ml @ 10 mls/hr Q10H IV Last administered on 07/31/18 11:01; Admin Dose 10 MLS/HR; Start 07/30/18 at 02:30 Norepinephrine 250 ml @ 1.875 mls/ hr TITRATE IV Last administered on 07/31/18 11:30; Admin Dose 22.5 MLS/HR; Start 07/30/18 at 04:00 Levalbuterol (Xopenex Neb) 0.63 mg Q6H RESP THERAPY HHN Last administered on 07/31/18 13:51; Admin Dose 0.63 MG; Start 07/30/18 at 14:00 Piperacillin Sod/ Tazobactam Sod 100 ml @ 200 mls/hr Q6 IVPB Last administered on 07/31/18 13:17; Admin Dose 200 MLS/HR; Start 07/30/18 at 12:00 Vancomycin HCl (Vanco Iv Per Pharmacy) VANCOMYCIN PER PHARMACY PER PROTOCOL XX ; Start 07/30/18 at 11:30 Vancomycin/Sodium Chloride 250 ml @ 125 mls/hr Q12H IVPB Last administered on 07/31/18 13:17; Admin Dose 125 MLS/HR; Start 07/31/18 at 02:00 Sodium Chloride 1,000 ml @ 100 mls/hr Q10H IV Last administered on 07/31/18at 01:32; Admin Dose 100 MLS/HR; Start 07/30/18 at 12:30 IV Flush (NS 10 ml) 10 ml PRN PRN IV IV PROTOCOL; Start 07/30/18 at 16:30 Phenylephrine HCl 250 ml @ 75 mls/hr TITRATE IV Last administered on 07/30/18at 21:55; Admin Dose 75 MLS/HR; Start 07/30/18 at 21:30 Miscellaneous Information (*Rx Drug Level Order Reminder*) VANCO TROUGH @ 0,100 ON... ONCE ONCE XX ; Start 08/01/18 at 01:00; Stop 08/01/18 at 01:01 TRUMAN ARRINGTON MD Jul 31, 2018 18:07
[2018-08-01] VITALS (20 sets, daily range): BP systolic 112–131; BP diastolic 65–79; PULSE 76–120; RESP 17–21
[2018-08-01] MEDS: LEVALBUTEROL (NEB) 0.63 MG/3 ML AMP HHN SCH ×4 (01:40→20:20)
[2018-08-01] MEDS: VANCOMYCIN 750 MG (PMX) 250 ML IVPB SCH ×3 (02:17→17:56)
[2018-08-01] MEDS: HYDROCODONE/APAP (5/325) TAB PO PRN (04:05)
[2018-08-01] MEDS: PANTOPRAZOLE IV 80 MG in SOD CHLORIDE 0.9% 100 ML IV SCH (04:31)
[2018-08-01] MEDS: PIPER-TAZO 3.375 GM IV (PMX) 100 ML IVPB SCH ×3 (05:14→17:56)
[2018-08-01] MEDS ORDERED: SOD CHLORIDE 0.9% 250 ML IV* ONE (06:44)
--- NOTE | 2018-08-01 08:47 | RADRPT ---
Vent Rate: 84 bpm RR Interval: 0 msec IA Interval: 132 msec QRS Duration: 84 msec QT Interval: 392 msec QTC Interval: 463 msec P-R-T Hawkins: 83 - 83 - 85 degrees Normal sinus rhythm Normal ECG Electronically Signed By: Jeffrey Urrutia
[2018-08-01] MEDS: DOCUSATE SODIUM 100 MG CAP PO SCH ×2 (09:00→20:26)
[2018-08-01] MEDS: POLYETHYLENE GLYCOL 17 GM PACKET PO SCH (09:00)
--- NOTE | 2018-08-01 10:53 | CONS ---
Assessment/Plan Assessment/Plan Assessment/Plan (Daily) Assessment recommendations; 1. Patient initially admitted with hypotension with interval resolution. However there is rapid progression of bilateral pneumonia on chest x-ray indicative of aspiration pneumonia. Patient also complaining of dysphagia over the last few weeks with significant weight loss. 2. Severe anemia and mild thrombocytopenia. Continue current supportive care. Obtain follow-up chest x-ray 24 hours. Obtain HIV testing. Consultation Date/Type/Reason Admit Date/Time Jul 26, 2018 at 22:49 Initial Consult Date Type of Consult Pulmonary Patient's condition is significantly improved over the last 24 hours. Has been transferred out of ICU to medical floor. He denies any fever, chest pain, coughing, shortness of breath. General exam; elderly male, awake alert, currently no distress. Appears quite emaciated. Reason for Consultation HEENT exam; supple neck, no JVD. No lymphadenopathy. Midline trachea. No thyromegaly. Pharynx is clear. Patient is edentulous. No oral thrush. Chest exam; diminished but clear breath sounds. S1-S2 audible, no murmurs. Regular rhythm. Abdomen exam; soft, scaphoid. Nontender. Nondistended. Bowel sounds audible. No organomegaly. Extremity exam; no peripheral edema clubbing. [employer] exam; no focal deficit. Date/Time of Note DATE: 08/01/18 TIME: 10:50 Exam/Review of Systems Exam Vitals Vital Signs Date Temp Pulse Resp B/P (MAP) Pulse Ox O2 O2 Flow FiO2 Time Delivery Rate 08/01/18 96 20 95 Nasal 3.0 08:27 Cannula 08/01/18 98.5 113/68 07:29 (83) 08/01/18 21 01:40 Intake and Output 07/31/18 07/31/18 08/01/18 1515:00 23:00 07:00 IntakeIntake Total 2525.0 ml 1052.5 ml 2564 ml OutputOutput Total 1130 ml 880 ml 850 ml BalanceBalance 1395.0 ml 172.5 ml 1714 ml Results Result Diagram: 08/01/18 0552 08/01/18 0552 Results 24hrs Laboratory Tests Test 07/31/18 12:17 08/01/18 00:49 08/01/18 05:52 Hemoglobin 7.6 L 7.6 L 6.6 *L Hematocrit 23.1 L 23.0 L 19.6 L Vancomycin Level Trough 5.7 L White Blood Count 14.9 H Red Blood Count 2.31 L Mean Corpuscular Volume 84.8 Mean Corpuscular Hemoglobin 28.6 L Mean Corpuscular Hemoglobin Concent 33.7 Red Cell Distribution Width 16.0 H Platelet Count 143 Mean Platelet Volume 10.0 Immature Granulocytes % 0.700 H Neutrophils % Segmented Neutrophils % (Manual) 57 Band Neutrophils % (Manual) 30 H Lymphocytes % Lymphocytes % (Manual) 10 L Monocytes % Monocytes % (Manual) 3 Eosinophils % Basophils % Nucleated Red Blood Cells % 0.0 Immature Granulocytes # 0.100 H Neutrophils # Neutrophils # (Manual) 9.1 H Band Neutrophils # 4.4 H Lymphocytes (Manual) 1.4 Lymphocytes # Monocytes # Monocytes # (Manual) 0.4 Eosinophils # Basophils # Nucleated Red Blood Cells # Platelet Estimate NORMAL Hypochromasia 1+ Poikilocytosis 2+ Sodium Level 138 Potassium Level 3.1 L Chloride Level 107 Carbon Dioxide Level 24 Anion Gap 7 Blood Urea Nitrogen 10 # Creatinine 0.79 Est Glomerular Filtrat Rate mL/min > 60 Glucose Level 110 Calcium Level 7.6 L Phosphorus Level 2.6 Magnesium Level 1.7 Total Bilirubin 0.5 Direct Bilirubin 0.00 Indirect Bilirubin 0.5 Aspartate Amino Transf (AST/SGOT) 27 Alanine Aminotransferase (ALT/SGPT) 26 Alkaline Phosphatase 62 # Total Protein 4.6 L Albumin 2.2 L Globulin 2.40 Albumin/Globulin Ratio 0.91 Medications Medication Current Medications IV Flush (NS 3 ml) 3 ml PER PROTOCOL IV ; Start 07/27/18 at 02:00 Ondansetron HCl (Zofran Inj) 4 mg Q6H PRN IV NAUSEA/VOMITING; Start 07/27/18 at 02:00 Acetaminophen (Tylenol Tab) 650 mg Q6H PRN PO .PAIN 1-3 OR TEMP; Start 07/27/18 at 02:00 Acetaminophen/ Hydrocodone Bitart ([place] (5/325)) 1 tab Q6H PRN PO .MOD PAIN 4- 6 Last administered on 07/28/18at 15:23; Admin Dose 1 TAB; Start 07/27/18 at 02:00 Acetaminophen/ Hydrocodone Bitart ([place] (5/325)) 2 tab Q6H PRN PO .SEVERE PAIN 7-10 Last administered on 08/01/18 04:05; Admin Dose 2 TAB; Start 07/27/18 at 02:00 Docusate Sodium (Colace) 100 mg BID PO Last administered on 07/31/18 21:00; Admin Dose 100 MG; Start 07/29/18 at 23:30 Polyethylene Glycol (Miralax) 17 gm DAILY PO Last administered on 07/30/18at 09:43; Admin Dose 17 GM; Start 07/30/18 at 09:00 Pantoprazole 80 mg/Sodium Chloride 100 ml @ 10 mls/hr Q10H IV Last administered on 08/01/18 04:31; Admin Dose 10 MLS/HR; Start 07/30/18 at 02:30 Levalbuterol (Xopenex Neb) 0.63 mg Q6H RESP THERAPY HHN Last administered on 08/01/18 08:18; Admin Dose 0.63 MG; Start 07/30/18 at 14:00 Piperacillin Sod/ Tazobactam Sod 100 ml @ 200 mls/hr Q6 IVPB Last administered on 08/01/18at 05:14; Admin Dose 200 MLS/HR; Start 07/30/18 at 12:00 Vancomycin HCl (Vanco Iv Per Pharmacy) VANCOMYCIN PER PHARMACY PER PROTOCOL XX ; Start 07/30/18 at 11:30 Sodium Chloride 1,000 ml @ 100 mls/hr Q10H IV Last administered on 07/31/18at 23:21; Admin Dose 100 MLS/HR; Start 07/30/18 at 12:30 IV Flush (NS 10 ml) 10 ml PRN PRN IV IV PROTOCOL; Start 07/30/18 at 16:30 Vancomycin/Sodium Chloride 250 ml @ 125 mls/hr Q8H IVPB ; Start 08/01/18 at 10:00 MARIANNE FERNÁNDEZ Aug 01, 2018 10:53
[2018-08-01] MEDS ORDERED: LIDOCAINE 2% (SDV) 5 ML INJ ONE (11:49)
[2018-08-01] MEDS ORDERED: PROPOFOL 40 ML ONE (11:49)
[2018-08-01] MEDS ORDERED: MEPERIDINE 25 MG INJ IV PRN (12:30)
[2018-08-01] MEDS ORDERED: ONDANSETRON 4 MG INJ IV PRN (12:30)
[2018-08-01] MEDS ORDERED: METOCLOPRAMIDE 10 MG INJ IV PRN (12:30)
[2018-08-01] MEDS ORDERED: DIPHENHYDRAMINE 50 MG INJ IV PRN (12:30)
[2018-08-01] MEDS ORDERED: FENTAnyl 50 MCG/ML VIAL IV PRN (12:30)
--- NOTE | 2018-08-01 12:31 | PAC ---
Date/Time of Note Date/Time of Note DATE: 08/01/18 TIME: 12:31 Post-Anesthesia Notes Post-Anesthesia Note Last documented vital signs Vital Signs Date Temp Pulse Resp B/P (MAP) Pulse Ox O2 O2 Flow FiO2 Time Delivery Rate 08/01/18 Simple 10 11:53 Mask 08/01/18 98.3 98 18 124/79 98 11:53 (94) 08/01/18 21 01:40 Activity: WNL Respiratory function: WNL Cardiovascular function: WNL Mental status: Baseline Pain reasonably controlled: Yes Hydration appropriate: Yes Nausea/Vomiting absent: Yes Comments BP:118/56, P:88, Spo2:100%, T:98,8 MANJEET CANCHOLA MD Aug 01, 2018 12:31
[2018-08-01] MEDS ORDERED: POTASSIUM CHLORIDE (SR) 20 MEQ TAB PO STA (13:36)
--- NOTE | 2018-08-01 13:42 | PN ---
Date/Time of Note Date/Time of Note DATE: 08/01/18 TIME: 13:38 Assessment/Plan VTE Prophylaxis Risk score (from Ns)>0 risk: 7 SCD applied (from Ns): Yes Pharmacological prophylaxis: NA/contraindicated Pharm contraindication: bleeding Lines[facility] Central line still needed: Yes Urinary Cath still in place: No Assessment/Plan Hospital Course SUBJECTIVE: Denies any abdominal pain at this time. No more episodes of melena. OBJECTIVE: Physical Exam General: Thin, frail looking, 63 year-old male lying in bed in no apparent distress. HEENT: Normocephalic, atraumatic. Eyes: Anicteric sclerae, conjunctivae clear. ENT: Nasal septum midline, oral mucosa moist. Neck supple, no JVD noticed. Respiratory: Bilaterally diminished breath sounds. No use of accessory muscles of respiration. Cardiovascular: S1, S2 heard. Regular rate and rhythm. Abdomen: Soft and scaphoid. Nontender, and nondistended. Bowel sounds positive in all 4 quadrants. Genitourinary: Deferred. Extremities: No cyanosis, no clubbing, no edema. Peripheral pulses palpable. Neurologic: Cranial nerves II through XII grossly intact. The patient is awake, alert, and oriented. Skin: Normal skin turgor. No skin rashes. Labs & Vitals per chart ASSESSMENT & PLAN 63-year-old male with past medical history of hypertension, asthma, dyslipidemia, and pancreatitis who came to the emergency room with epigastric pain and unintentional weight loss with the CT scan showing contracted gallbladder wall with possible wall thickening and some fluid adjacent to the gallbladder and duodenum with small 9 mm dense or enhancing focus adjacent to the gallbladder. The patient was admitted to inpatient setting for further treatment and evaluation. The patient was initially on the medical surgical f jocelyn. The patient was moved to intensive care unit on 07/30/2018 after a rapid response was called because of significant gastrointestinal bleeding with resultant hypotension. 1. Epigastric pain. -Etiology unclear. -Gallbladder ultrasound negative for any gallstones. LFTs within normal limits. -Being followed by gastroenterology. -Status post esophagogastroduodenoscopy on 07/29/2018 that showed necrotizing duodenal ulcer, gastritis, multiple esophageal ulcers, and esophagitis. - Status post post colonoscopy on status post colonoscopy on 08/01/2018 that showed colonic diverticulosis. -Continue PPI and Carafate. 2. Dysphagia to solid foods. -Being followed by gastroenterology. -Status post esophagogastroduodenoscopy on 07/29/2018 that showed esophagitis and esophageal ulcers. 3. Melena with hypotension episode on 07/30/2018. -The patient was moved to intensive care unit after rapid response. -S/P Levophed drip. -Being followed by gastroenterology. 4. Anemia of acute blood loss. -Transfuse blood products as needed. 5. Shock on 07/30/2018. -Most probably hypovolemic shock secondary to acute blood loss. -Start empiric antibiotics since the patient has underlying lactic acidosis. -Continue IV pressors. -Continue IV fluids. 6. Sepsis with septic shock on 07/30/2018. -Etiology could be multifocal pneumonia, possible aspiration. -Continue antimicrobials including coverage for anaerobes. -ID consult. 7. Acute respiratory failure. -Hypoxic -Etiology unclear. -Continue supplemental oxygen and inhaled bronchodilators. -Pulmonary evaluation. 8. History of dyslipidemia. -Fasting lipid panel satisfactory. 9. Severe protein calorie malnutrition. -Being evaluated for any underlying malignancy. -Dietary consult. 10. Fluids, electrolytes, and nutrition. -Regular diet. 11. DVT prophylaxis -B/L SCDs. -No heparin because of bleeding. 12. Plan. -Continue PPI. -Monitor serial H&H. -Continue empiric antimicrobials. The patient was seen in collaboration with Dr. Barakat. Result Diagram: 08/01/18 0552 08/01/18 0552 Results 24hrs Laboratory Tests Test 08/01/18 00:49 08/01/18 05:52 Hemoglobin 7.6 L 6.6 *L Hematocrit 23.0 L 19.6 L Vancomycin Level Trough 5.7 L White Blood Count 14.9 H Red Blood Count 2.31 L Mean Corpuscular Volume 84.8 Mean Corpuscular Hemoglobin 28.6 L Mean Corpuscular Hemoglobin Concent 33.7 Red Cell Distribution Width 16.0 H Platelet Count 143 Mean Platelet Volume 10.0 Immature Granulocytes % 0.700 H Neutrophils % Segmented Neutrophils % (Manual) 57 Band Neutrophils % (Manual) 30 H Lymphocytes % Lymphocytes % (Manual) 10 L Monocytes % Monocytes % (Manual) 3 Eosinophils % Basophils % Nucleated Red Blood Cells % 0.0 Immature Granulocytes # 0.100 H Neutrophils # Neutrophils # (Manual) 9.1 H Band Neutrophils # 4.4 H Lymphocytes (Manual) 1.4 Lymphocytes # Monocytes # Monocytes # (Manual) 0.4 Eosinophils # Basophils # Nucleated Red Blood Cells # Platelet Estimate NORMAL Hypochromasia 1+ Poikilocytosis 2+ Sodium Level 138 Potassium Level 3.1 L Chloride Level 107 Carbon Dioxide Level 24 Anion Gap 7 Blood Urea Nitrogen 10 # Creatinine 0.79 Est Glomerular Filtrat Rate mL/min > 60 Glucose Level 110 Calcium Level 7.6 L Phosphorus Level 2.6 Magnesium Level 1.7 Total Bilirubin 0.5 Direct Bilirubin 0.00 Indirect Bilirubin 0.5 Aspartate Amino Transf (AST/SGOT) 27 Alanine Aminotransferase (ALT/SGPT) 26 Alkaline Phosphatase 62 # Total Protein 4.6 L Albumin 2.2 L Globulin 2.40 Albumin/Globulin Ratio 0.91 Exam/Review of Systems Exam Vitals Vital Signs Date Temp Pulse Resp B/P (MAP) Pulse Ox O2 O2 Flow FiO2 Time Delivery Rate 08/01/18 80 21 120/69 98 Nasal 2.0 12:55 (86) Cannula 08/01/18 98.3 11:53 08/01/18 21 01:40 Intake and Output 07/31/18 07/31/18 08/01/18 1515:00 23:00 07:00 IntakeIntake Total 2525.0 ml 1052.5 ml 2564 ml OutputOutput Total 1130 ml 880 ml 850 ml BalanceBalance 1395.0 ml 172.5 ml 1714 ml Results Results 24hrs Laboratory Tests Test 08/01/18 00:49 08/01/18 05:52 Hemoglobin 7.6 L 6.6 *L Hematocrit 23.0 L 19.6 L Vancomycin Level Trough 5.7 L White Blood Count 14.9 H Red Blood Count 2.31 L Mean Corpuscular Volume 84.8 Mean Corpuscular Hemoglobin 28.6 L Mean Corpuscular Hemoglobin Concent 33.7 Red Cell Distribution Width 16.0 H Platelet Count 143 Mean Platelet Volume 10.0 Immature Granulocytes % 0.700 H Neutrophils % Segmented Neutrophils % (Manual) 57 Band Neutrophils % (Manual) 30 H Lymphocytes % Lymphocytes % (Manual) 10 L Monocytes % Monocytes % (Manual) 3 Eosinophils % Basophils % Nucleated Red Blood Cells % 0.0 Immature Granulocytes # 0.100 H Neutrophils # Neutrophils # (Manual) 9.1 H Band Neutrophils # 4.4 H Lymphocytes (Manual) 1.4 Lymphocytes # Monocytes # Monocytes # (Manual) 0.4 Eosinophils # Basophils # Nucleated Red Blood Cells # Platelet Estimate NORMAL Hypochromasia 1+ Poikilocytosis 2+ Sodium Level 138 Potassium Level 3.1 L Chloride Level 107 Carbon Dioxide Level 24 Anion Gap 7 Blood Urea Nitrogen 10 # Creatinine 0.79 Est Glomerular Filtrat Rate mL/min > 60 Glucose Level 110 Calcium Level 7.6 L Phosphorus Level 2.6 Magnesium Level 1.7 Total Bilirubin 0.5 Direct Bilirubin 0.00 Indirect Bilirubin 0.5 Aspartate Amino Transf (AST/SGOT) 27 Alanine Aminotransferase (ALT/SGPT) 26 Alkaline Phosphatase 62 # Total Protein 4.6 L Albumin 2.2 L Globulin 2.40 Albumin/Globulin Ratio 0.91 Medications Medication Current Medications IV Flush (NS 3 ml) 3 ml PER PROTOCOL IV ; Start 07/27/18 at 02:00 Ondansetron HCl (Zofran Inj) 4 mg Q6H PRN IV NAUSEA/VOMITING; Start 07/27/18 at 02:00 Acetaminophen (Tylenol Tab) 650 mg Q6H PRN PO .PAIN 1-3 OR TEMP; Start 07/27/18 at 02:00 Acetaminophen/ Hydrocodone Bitart ([place] (5/325)) 1 tab Q6H PRN PO .MOD PAIN 4- 6 Last administered on 07/28/18at 15:23; Admin Dose 1 TAB; Start 07/27/18 at 02:00 Acetaminophen/ Hydrocodone Bitart ([place] (5/325)) 2 tab Q6H PRN PO .SEVERE PAIN 7-10 Last administered on 08/01/18at 04:05; Admin Dose 2 TAB; Start 07/27/18 at 02:00 Docusate Sodium (Colace) 100 mg BID PO Last administered on 07/31/18at 21:00; Admin Dose 100 MG; Start 07/29/18 at 23:30 Polyethylene Glycol (Miralax) 17 gm DAILY PO Last administered on 07/30/18at 09:43; Admin Dose 17 GM; Start 07/30/18 at 09:00 Pantoprazole 80 mg/Sodium Chloride 100 ml @ 10 mls/hr Q10H IV Last administered on 08/01/18at 04:31; Admin Dose 10 MLS/HR; Start 07/30/18 at 02:30 Levalbuterol (Xopenex Neb) 0.63 mg Q6H RESP THERAPY HHN Last administered on 08/01/18at 08:18; Admin Dose 0.63 MG; Start 07/30/18 at 14:00 Piperacillin Sod/ Tazobactam Sod 100 ml @ 200 mls/hr Q6 IVPB Last administered on 08/01/18at 05:14; Admin Dose 200 MLS/HR; Start 07/30/18 at 12:00 Vancomycin HCl (Vanco Iv Per Pharmacy) VANCOMYCIN PER PHARMACY PER PROTOCOL XX ; Start 07/30/18 at 11:30 Sodium Chloride 1,000 ml @ 100 mls/hr Q10H IV Last administered on 07/31/18at 23:21; Admin Dose 100 MLS/HR; Start 07/30/18 at 12:30 IV Flush (NS 10 ml) 10 ml PRN PRN IV IV PROTOCOL; Start 07/30/18 at 16:30 Vancomycin/Sodium Chloride 250 ml @ 125 mls/hr Q8H IVPB Last administered on 08/01/18at 10:00; Admin Dose 125 MLS/HR; Start 08/01/18 at 10:00 Fentanyl (Sublimaze) 25 mcg PACU ORDER PRN IV MILD PAIN 1-3; Start 08/01/18 at 12:30; Stop 08/01/18 at 17:00 Ondansetron HCl (Zofran Inj) 4 mg PACU ORDER PRN IV NAUSEA/VOMITING; Start 08/01/18 at 12:30; Stop 08/01/18 at 17:00 Metoclopramide HCl (Reglan) 10 mg PACU ORDER PRN IV NAUSEA/VOMITING; Start 08/01/18 at 12:30; Stop 08/01/18 at 17:00 Meperidine HCl (Demerol) 25 mg PACU ORDER PRN IV .RIGORS; Start 08/01/18 at 12:30; Stop 08/01/18 at 17:00 Diphenhydramine HCl (Benadryl) 25 mg PACU ORDER PRN IV .PRURITUS; Start 08/01/18 at 12:30; Stop 08/01/18 at 17:00 Miscellaneous Information (*Rx Drug Level Order Reminder*) VANCO TROUGH @ 0,900 ON... ONCE ONCE XX ; Start 08/02/18 at 09:00; Stop 08/02/18 at 09:01 RADHA LI NP Aug 01, 2018 13:42
[2018-08-01] MEDS: SOD CHLORIDE 0.9% 1,000 ML IV SCH (14:30)
[2018-08-01] MEDS: PANTOPRAZOLE 40 MG INJ IV SCH (17:56)
[2018-08-01] MEDS: ACETAMINOPHEN 325 MG TAB PO PRN (20:26)
[2018-08-02] VITALS (9 sets, daily range): BP systolic 119–147; BP diastolic 73–89; PULSE 83–118; RESP 18–20
[2018-08-02] MEDS ORDERED: ACETAMINOPHEN 325 MG TAB PO ONE
[2018-08-02] MEDS: PIPER-TAZO 3.375 GM IV (PMX) 100 ML IVPB SCH ×3 (00:19→12:17)
[2018-08-02] MEDS: SOD CHLORIDE 0.9% 1,000 ML IV SCH ×3 (00:19→19:45)
[2018-08-02] MEDS ORDERED: SOD CHLORIDE 0.9% 250 ML IV* ONE (00:21)
--- NOTE | 2018-08-02 01:29 | CONS ---
DATE OF ADMISSION: 07/26/2018 DATE OF CONSULTATION: 08/02/2018 TYPE OF CONSULTATION: Infectious disease. REQUESTING PHYSICIAN: Martínez Tinsley MD. I am seeing this patient for Dr. Gustavo Yo. Thanh HISTORY OF PRESENT ILLNESS: The patient is a 63-year-old -[place] male who was admitted on 0 07/26/2018 with a chief complaint of weight loss x3 months being 16 pounds and upper abdominal pain ra diating to the back, trouble walking and hard stools. The patient had a CT scan which revealed the l iver questionable cirrhosis, contracted gallbladder with a thickened wall and fluid adjacent with 8 m m enhancing focus next to the gallbladder. White count was with 59 polys, 31 lymphs, 10 monocy mercedes, hematocrit 46%, BUN 16, creatinine 0.93. Urinalysis: Specific gravity 1.013, pH 5, +1 ketone, negative leukocyte esterase. Chest x-ray was negative. CT scan of the abdomen and pelvis revealed p ancreatitis and cirrhosis. The patient had an EGD on 07/29/2018 which revealed a necrotizing duodena l ulcer, gastritis, multiple linear esophageal ulcers and esophagitis. On 07/30/2018, the patient cuellar d bloody bowel movement followed by constipated stool and then became hypotensive and apparently sust ained aspiration which was discovered with white blood cell count of 12,900 and a chest x-ray which r evealed multiple bilateral infiltrates on 08/01/2018. White count at that time was 14,900, 57 polys, 30 bands, 3 monocytes and platelet count of 143,000. Hemoglobin fell to 6.6 grams and temperature r ose to 101.2. PHYSICAL EXAMINATION GENERAL: On 08/02/2018 this evening, the patient is alert, oriented, very emaciated -[place] male who is alert, cooperative and a good historian. HEENT: The pupils are constricted. There is bilateral arcus. The mouth has moist mucous membranes and many missing teeth. NECK: Supple. No jugular venous distention. CHEST: Clear to auscultation with prolongation of expiration with scattered expiratory wheezes. HEART: Regular. No gallop, murmur or rub. ABDOMEN: Scaphoid. There is tenderness in the epigastric area. No rebound or guarding. The bowel sounds are present. EXTREMITIES: With no edema. INITIAL IMPRESSION: 1. Systemic inflammatory response. 2. Aspiration pneumonia. 3. Gastrointestinal bleed with shock. 4. Anemia. 5. Esophageal ulcers with esophagitis. 6. Necrotizing duodenal ulcer. 7. Malnutrition. 8. Pancreatitis. 9. Cirrhosis. 10. Alcoholism. 11. Cholecystitis, not acute. RECOMMENDATIONS: Continue vancomycin and Zosyn as you have chosen originally. I would suggest keepi ng the head of bed elevated and put the patient on Protonix as he is and also some Reglan to ensure t hat he does not have any recurrence during this time. Also, I have encouraged the patient to be bett er hydrated and may be transfused. Also I suggest H. pylori breath test or H. pylori serology in ankit e he may need treatment for these multiple ulcers. Thank you, Dr. Tinsley, for referring this interesting patient. Dictated By: Victor M SMITH MD EC/NTS Conf#: [id number] DID#: [id number] CC: MARTÍNEZ TINSLEY MD; GUSTAVO YO MD; JOHN ABDULLAHI MD;*End*
[2018-08-02] MEDS: VANCOMYCIN 750 MG (PMX) 250 ML IVPB SCH (01:56)
[2018-08-02] MEDS: LEVALBUTEROL (NEB) 0.63 MG/3 ML AMP HHN SCH ×4 (02:07→19:34)
[2018-08-02] MEDS: ACETAMINOPHEN 325 MG TAB PO PRN ×2 (04:54→19:46)
[2018-08-02] MEDS: HYDROCODONE/APAP (5/325) TAB PO PRN (04:56)
[2018-08-02] MEDS: PANTOPRAZOLE 40 MG INJ IV SCH ×2 (05:02→17:12)
--- NOTE | 2018-08-02 07:27 | CONS ---
Assessment/Plan Assessment/Plan Assessment/Plan (Daily) Assessment recommendations; 1. Patient initially admitted with sepsis and hypotension with rapid p rogression of bilateral pneumonia on chest x-ray with interval clinical improvement. Chest x-ray from today is pending. 2. Anemia and thrombocytopenia. 3. Chronic dysphagia. Pneumonia is likely bilateral aspiration. 4. Severe weight loss recently. Etiology is unclear. Continue on supportive care. HIV test is pending. Chest x-ray also is pending from today. Further recommendations once chest x-ray is obtained. Consultation Date/Type/Reason Admit Date/Time Jul 26, 2018 at 22:49 Initial Consult Date Type of Consult Pulmonary Patient's condition is significantly improved over the last 24 hours. Has been transferred out of ICU to medical floor. He denies any fever, chest pain, coughing, shortness of breath. General exam; elderly male, awake alert, currently no distress. Appears quite emaciated. Date/Time of Note DATE: 08/02/18 TIME: 07:25 24 HR Interval Summary Free Text/Dictation Patient's condition is stable. Remains awake and alert. Denies any shortness of breath at rest. Any coughing, wheezing, chest pain or any sputum production. General exam; elderly male, appears quite emaciated. Awake and alert. Currently no distress. Exam/Review of Systems Exam Vitals Vital Signs Date Temp Pulse Resp B/P (MAP) Pulse Ox O2 O2 Flow FiO2 Time Delivery Rate 08/02/18 98.0 06:12 08/02/18 96 04:00 08/02/18 19 119/73 96 04:00 (88) 08/02/18 Nasal 3.0 02:07 Cannula 08/01/18 21 01:40 Intake and Output 08/01/18 08/01/18 08/02/18 1515:00 23:00 07:00 IntakeIntake Total 50 ml 800 ml 2212 ml OutputOutput Total 900 ml 300 ml BalanceBalance 50 ml -100 ml 1912 ml Exam HEENT exam; supple neck, no JVD. No lymphadenopathy. Midline trachea. No thyromegaly. Patient is edentulous. Pharynx is clear. No neck masses. Chest exam; diminished but clear breath sounds. S1-S2 audible, no murmurs. Regular rhythm. Abdomen exam; soft, no organomegaly. Scaphoid. Nontender. Bowel sounds audible. Extremity exam; no peripheral edema. INSULATION ESTIMATOR exam; no focal deficit. Results Result Diagram: 08/02/18 0545 08/02/1845 Results 24hrs Laboratory Tests Test 08/01/18 20:40 08/02/18 05:19 08/02/18 05:45 Urine Color YELLOW Urine Clarity CLEAR Urine pH 5.0 Urine Specific [place] 1.022 Urine Ketones NEGATIVE Urine Nitrite NEGATIVE Urine Bilirubin NEGATIVE Urine Urobilinogen NEGATIVE Urine Leukocyte Esterase NEGATIVE Urine Hemoglobin NEGATIVE Urine Glucose 3+ H Urine Total Protein NEGATIVE Lab Scanned Report BLOOD TRANSFUSION White Blood Count 13.8 H Red Blood Count 2.86 #L Hemoglobin 8.4 #L Hematocrit 24.8 #L Mean Corpuscular Volume 86.7 Mean Corpuscular Hemoglobin 29.4 Mean Corpuscular 33.9 Hemoglobin Concent Red Cell Distribution Width 15.8 H Platelet Count 137 L Mean Platelet Volume 10.0 Immature Granulocytes % 0.600 H Neutrophils % Lymphocytes % Monocytes % Eosinophils % Basophils % Nucleated Red Blood Cells % 0.0 Immature Granulocytes # 0.080 H Neutrophils # Lymphocytes # Monocytes # Eosinophils # Basophils # Nucleated Red Blood Cells # Sodium Level 140 Potassium Level 3.5 Chloride Level 110 Carbon Dioxide Level 25 Anion Gap 5 Blood Urea Nitrogen 11 Creatinine 0.74 Est Glomerular Filtrat > 60 Rate mL/min Glucose Level 97 Calcium Level 8.1 L Phosphorus Level 2.5 Magnesium Level 2.0 Medications Medication Current Medications IV Flush (NS 3 ml) 3 ml PER PROTOCOL IV ; Start 07/27/18 at 02:00 Ondansetron HCl (Zofran Inj) 4 mg Q6H PRN IV NAUSEA/VOMITING; Start 07/27/18 at 02:00 Acetaminophen (Tylenol Tab) 650 mg Q6H PRN PO .PAIN 1-3 OR TEMP Last administered on 08/02/18at 04:54; Admin Dose 650 MG; Start 07/27/18 at 02:00 Acetaminophen/ Hydrocodone Bitart ([place] (5/325)) 1 tab Q6H PRN PO .MOD PAIN 4- 6 Last administered on 07/28/18at 15:23; Admin Dose 1 TAB; Start 07/27/18 at 02:00 Acetaminophen/ Hydrocodone Bitart ([place] (5/325)) 2 tab Q6H PRN PO .SEVERE PAIN 7-10 Last administered on 08/02/18 04:56; Admin Dose 2 TAB; Start 07/27/18 at 02:00 Docusate Sodium (Colace) 100 mg BID PO Last administered on 08/01/18 20:26; Admin Dose 100 MG; Start 07/29/18 at 23:30 Polyethylene Glycol (Miralax) 17 gm DAILY PO Last administered on 07/30/18 09:43; Admin Dose 17 GM; Start 07/30/18 at 09:00 Levalbuterol (Xopenex Neb) 0.63 mg Q6H RESP THERAPY HHN Last administered on 08/02/18 02:07; Admin Dose 0.63 MG; Start 07/30/18 at 14:00 Piperacillin Sod/ Tazobactam Sod 100 ml @ 200 mls/hr Q6 IVPB Last administered on 08/02/18 05:02; Admin Dose 200 MLS/HR; Start 07/30/18 at 12:00 Vancomycin HCl (Vanco Iv Per Pharmacy) VANCOMYCIN PER PHARMACY PER PROTOCOL XX ; Start 07/30/18 at 11:30 Sodium Chloride 1,000 ml @ 100 mls/hr Q10H IV Last administered on 08/02/18 00:19; Admin Dose 100 MLS/HR; Start 07/30/18 at 12:30 IV Flush (NS 10 ml) 10 ml PRN PRN IV IV PROTOCOL; Start 07/30/18 at 16:30 Vancomycin/Sodium Chloride 250 ml @ 125 mls/hr Q8H IVPB Last administered on 08/02/18 01:56; Admin Dose 125 MLS/HR; Start 08/01/18 at 10:00 Miscellaneous Information (*Rx Drug Level Order Reminder*) VANCO TROUGH @ 0,900 ON... ONCE ONCE XX ; Start 08/02/18 at 09:00; Stop 08/02/18 at 09:01 Pantoprazole (Protonix Iv) 40 mg BID@06,18 IV Last administered on 08/02/18 05:02; Admin Dose 40 MG; Start 08/01/18 at 18:00 MARIANNE FERNÁNDEZ Aug 02, 2018 07:27
[2018-08-02] MEDS: DOCUSATE SODIUM 100 MG CAP PO SCH ×2 (08:25→20:05)
[2018-08-02] MEDS: POLYETHYLENE GLYCOL 17 GM PACKET PO SCH (08:25)
[2018-08-02] MEDS ORDERED: VANCOMYCIN 1 GM 250 ML IVPB SCH (11:00)
--- NOTE | 2018-08-02 12:13 | PN ---
Date/Time of Note Date/Time of Note DATE: 08/02/18 TIME: 12:11 Assessment/Plan VTE Prophylaxis Risk score (from Ns)>0 risk: 7 SCD applied (from Ns): Yes Pharmacological prophylaxis: NA/contraindicated Pharm contraindication: bleeding Lines/Catheters IV Catheter Type (from Nrsg): PICC Line Central line still needed: Yes Urinary Cath still in place: No Assessment/Plan Hospital Course SUBJECTIVE: Denies any abdominal pain at this time. No more episodes of melena. OBJECTIVE: Physical Exam General: Thin, frail looking, 63 year-old male lying in bed in no apparent distress. HEENT: Normocephalic, atraumatic. Eyes: Anicteric sclerae, conjunctivae clear. ENT: Nasal septum midline, oral mucosa moist. Neck supple, no JVD noticed. Respiratory: Bilaterally diminished breath sounds. No use of accessory muscles of respiration. Cardiovascular: S1, S2 heard. Regular rate and rhythm. Abdomen: Soft and scaphoid. Nontender, and nondistended. Bowel sounds positive in all 4 quadrants. Genitourinary: Deferred. Extremities: No cyanosis, no clubbing, no edema. Peripheral pulses palpable. Neurologic: Cranial nerves II through XII grossly intact. The patient is awake, alert, and oriented. Skin: Normal skin turgor. No skin rashes. Labs & Vitals per chart ASSESSMENT & PLAN 63-year-old male with past medical history of hypertension, asthma, dyslipidemia, and pancreatitis who came to the emergency room with epigastric pain and unintentional weight loss with the CT scan showing contracted gallbladder wall with possible wall thickening and some fluid adjacent to the gallbladder and duodenum with small 9 mm dense or enhancing focus adjacent to the gallbladder. The patient was admitted to inpatient setting for further treatment and evaluation. The patient was initially on the medical surgical f jocelyn. The patient was moved to intensive care unit on 07/30/2018 after a rapid response was called because of significant gastrointestinal bleeding with resultant hypotension. 1. Epigastric pain. -Etiology unclear. -Gallbladder ultrasound negative for any gallstones. LFTs within normal limits. -Being followed by gastroenterology. -Status post esophagogastroduodenoscopy on 07/29/2018 that showed necrotizing duodenal ulcer, gastritis, multiple esophageal ulcers, and esophagitis. - Status post post colonoscopy on status post colonoscopy on 08/01/2018 that showed colonic diverticulosis. -Continue PPI and Carafate. 2. Dysphagia to solid foods. -Being followed by gastroenterology. -Status post esophagogastroduodenoscopy on 07/29/2018 that showed esophagitis and esophageal ulcers. 3. Melena with hypotension episode on 07/30/2018. -The patient was moved to intensive care unit after rapid response. -S/P Levophed drip. -Being followed by gastroenterology. 4. Anemia of acute blood loss. -Transfuse blood products as needed. 5. Shock on 07/30/2018. -Most probably hypovolemic shock secondary to acute blood loss. -S/P IV pressors. 6. Sepsis with septic shock on 07/30/2018. -Etiology could be multifocal pneumonia, possible aspiration. -Continue antimicrobials including coverage for anaerobes. -ID consult. 7. Acute respiratory failure. -Hypoxic -Etiology unclear. -Continue supplemental oxygen and inhaled bronchodilators. -Pulmonary evaluation. 8. History of dyslipidemia. -Fasting lipid panel satisfactory. 9. Severe protein calorie malnutrition. -Being evaluated for any underlying malignancy. -Dietary consult. 10. Fluids, electrolytes, and nutrition. -Regular diet. 11. DVT prophylaxis -B/L SCDs. -No heparin because of bleeding. 12. Plan. -Continue PPI. -Monitor serial H&H. -Transfuse blood products as needed. -Continue empiric antimicrobials. -Replete electrolytes. Asked the patient about his wishes in case if he becomes incapacitated. The patient wants to remain a full code and wants to do all everything possible to keep him alive. The patient does not have any surrogate decision makers including any family members, friends, or significant others. The conversation was witnessed by the patient's primary RN. The patient was seen in collaboration with Dr. Barakat. Result Diagram: 08/02/18 1007 08/02/18 0545 Results 24hrs Laboratory Tests Test 08/01/18 20:40 08/02/18 05:19 08/02/18 05:45 08/02/18 10:07 Urine Color YELLOW Urine Clarity CLEAR Urine pH 5.0 Urine Specific 1.022 Gans Urine Ketones NEGATIVE Urine Nitrite NEGATIVE Urine Bilirubin NEGATIVE Urine Urobilinogen NEGATIVE Urine Leukocyte NEGATIVE Esterase Urine Hemoglobin NEGATIVE Urine Glucose 3+ H Urine Total Protein NEGATIVE Lab Scanned Report BLOOD TRANSFUSION White Blood Count 13.8 H Red Blood Count 2.86 #L Hemoglobin 8.4 #L 8.5 L Hematocrit 24.8 #L 25.6 L Mean Corpuscular 86.7 Volume Mean Corpuscular 29.4 Hemoglobin Mean Corpuscular 33.9 Hemoglobin Concent Red Cell 15.8 H Distribution Width Platelet Count 137 L Mean Platelet 10.0 Volume Immature 0.600 H Granulocytes % Neutrophils % Segmented 46 Neutrophils % (Manual) Band Neutrophils % 8 H (Manual) Lymphocytes % Lymphocytes % 38 (Manual) Reactive 4 H Lymphocytes % (Manual) Monocytes % Monocytes % 1 (Manual) Eosinophils % Eosinophils % 1 (Manual) Basophils % Basophils % 2 (Manual) Nucleated Red Blood 0.0 Cells % Immature 0.080 H Granulocytes # Neutrophils # Neutrophils # 6.5 (Manual) Band Neutrophils # 1.1 H Lymphocytes 5.2 H (Manual) Lymphocytes # Reactive 0.5 H Lymphocytes # Monocytes # Monocytes # 0.1 L (Manual) Eosinophils # Basophils # Basophils # 0.2 H (Manual) Nucleated Red Blood Cells # Platelet Estimate DECREASED Giant Platelets 2 H Polychromasia 1+ Poikilocytosis 1+ Anisocytosis 1+ Sodium Level 140 Potassium Level 3.5 Chloride Level 110 Carbon Dioxide 25 Level Anion Gap 5 Blood Urea Nitrogen 11 Creatinine 0.74 Est Glomerular > 60 Filtrat Rate mL/min Glucose Level 97 Calcium Level 8.1 L Phosphorus Level 2.5 Magnesium Level 2.0 Vancomycin Level 6.7 L Trough Exam/Review of Systems Exam Vitals Vital Signs Date Temp Pulse Resp B/P (MAP) Pulse Ox O2 O2 Flow FiO2 Time Delivery Rate 08/02/18 98.2 83 18 131/83 96 11:15 (99) 08/02/18 Nasal 2.0 08:56 Cannula 08/01/18 21 01:40 Intake and Output 08/01/18 08/01/18 08/02/18 1515:00 23:00 07:00 IntakeIntake Total 50 ml 800 ml 2212 ml OutputOutput Total 900 ml 300 ml BalanceBalance 50 ml -100 ml 1912 ml Results Results 24hrs Laboratory Tests Test 08/01/18 20:40 08/02/18 05:19 08/02/18 05:45 08/02/18 10:07 Urine Color YELLOW Urine Clarity CLEAR Urine pH 5.0 Urine Specific 1.022 [place]ans Urine Ketones NEGATIVE Urine Nitrite NEGATIVE Urine Bilirubin NEGATIVE Urine Urobilinogen NEGATIVE Urine Leukocyte NEGATIVE Esterase Urine Hemoglobin NEGATIVE Urine Glucose 3+ H Urine Total Protein NEGATIVE Lab Scanned Report BLOOD TRANSFUSION White Blood Count 13.8 H Red Blood Count 2.86 #L Hemoglobin 8.4 #L 8.5 L Hematocrit 24.8 #L 25.6 L Mean Corpuscular 86.7 Volume Mean Corpuscular 29.4 Hemoglobin Mean Corpuscular 33.9 Hemoglobin Concent Red Cell 15.8 H Distribution Width Platelet Count 137 L Mean Platelet 10.0 Volume Immature 0.600 H Granulocytes % Neutrophils % Segmented 46 Neutrophils % (Manual) Band Neutrophils % 8 H (Manual) Lymphocytes % Lymphocytes % 38 (Manual) Reactive 4 H Lymphocytes % (Manual) Monocytes % Monocytes % 1 (Manual) Eosinophils % Eosinophils % 1 (Manual) Basophils % Basophils % 2 (Manual) Nucleated Red Blood 0.0 Cells % Immature 0.080 H Granulocytes # Neutrophils # Neutrophils # 6.5 (Manual) Band Neutrophils # 1.1 H Lymphocytes 5.2 H (Manual) Lymphocytes # Reactive 0.5 H Lymphocytes # Monocytes # Monocytes # 0.1 L (Manual) Eosinophils # Basophils # Basophils # 0.2 H (Manual) Nucleated Red Blood Cells # Platelet Estimate DECREASED Giant Platelets 2 H Polychromasia 1+ Poikilocytosis 1+ Anisocytosis 1+ Sodium Level 140 Potassium Level 3.5 Chloride Level 110 Carbon Dioxide 25 Level Anion Gap 5 Blood Urea Nitrogen 11 Creatinine 0.74 Est Glomerular > 60 Filtrat Rate mL/min Glucose Level 97 Calcium Level 8.1 L Phosphorus Level 2.5 Magnesium Level 2.0 Vancomycin Level 6.7 L Trough Medications Medication Current Medications IV Flush (NS 3 ml) 3 ml PER PROTOCOL IV ; Start 07/27/18 at 02:00 Ondansetron HCl (Zofran Inj) 4 mg Q6H PRN IV NAUSEA/VOMITING; Start 07/27/18 at 02:00 Acetaminophen (Tylenol Tab) 650 mg Q6H PRN PO .PAIN 1-3 OR TEMP Last administered on 08/02/18at 04:54; Admin Dose 650 MG; Start 07/27/18 at 02:00 Acetaminophen/ Hydrocodone Bitart ([place] (5/325)) 1 tab Q6H PRN PO .MOD PAIN 4- 6 Last administered on 07/28/18at 15:23; Admin Dose 1 TAB; Start 07/27/18 at 02:00 Acetaminophen/ Hydrocodone Bitart ([place] (5/325)) 2 tab Q6H PRN PO .SEVERE PAIN 7-10 Last administered on 08/02/18 04:56; Admin Dose 2 TAB; Start 07/27/18 at 02:00 Docusate Sodium (Colace) 100 mg BID PO Last administered on 08/02/18 08:25; Admin Dose 100 MG; Start 07/29/18 at 23:30 Polyethylene Glycol (Miralax) 17 gm DAILY PO Last administered on 08/02/18 08:25; Admin Dose 17 GM; Start 07/30/18 at 09:00 Levalbuterol (Xopenex Neb) 0.63 mg Q6H RESP THERAPY HHN Last administered on 08/02/18 08:31; Admin Dose 0.63 MG; Start 07/30/18 at 14:00 Piperacillin Sod/ Tazobactam Sod 100 ml @ 200 mls/hr Q6 IVPB Last administered on 08/02/18 05:02; Admin Dose 200 MLS/HR; Start 07/30/18 at 12:00 Vancomycin HCl (Vanco Iv Per Pharmacy) VANCOMYCIN PER PHARMACY PER PROTOCOL XX ; Start 07/30/18 at 11:30 Sodium Chloride 1,000 ml @ 100 mls/hr Q10H IV Last administered on 08/02/18 11:16; Admin Dose 100 MLS/HR; Start 07/30/18 at 12:30 IV Flush (NS 10 ml) 10 ml PRN PRN IV IV PROTOCOL; Start 07/30/18 at 16:30 Pantoprazole (Protonix Iv) 40 mg BID@06,18 IV Last administered on 08/02/18 05:02; Admin Dose 40 MG; Start 08/01/18 at 18:00 Vancomycin HCl 250 ml @ 125 mls/hr Q8H IVPB ; Start 08/02/18 at 12:00 RADHA LI NP Aug 02, 2018 12:13
[2018-08-02] MEDS: VANCOMYCIN 1 GM 250 ML IVPB SCH ×2 (13:18→19:45)
--- NOTE | 2018-08-02 15:18 | CONS ---
Assessment/Plan Assessment/Plan Hospital Course (Demo Recall) Patient is awake feels better looks comfortable, he spiked fever of 101.2 last night, currently afebrile. WBC today 13.8 H&H 8.5 and 25.6 platelets 137 BUN 11 creatinine 0.74 Microbiology: Blood cultures remain negative Chest x-ray this morning revealed no significant change. Bilateral upper lobe and lower lobe infiltrates Indwelling: Right upper extremity PICC line Antimicrobials: Vancomycin, Zosyn Physical examination: Well-developed chronically ill-appearing elderly -[place]inese man who is awake in no distress. Head atraumatic normocephalic sclera nonicteric. Neck is supple chest rise symmetrical breath sounds with scattered crackles. Heart: S1-S2. Abdomen soft bowel sounds present. Assessment: 1. Sepsis with ongoing fevers and leukocytosis, present on admission 2. Bilateral pneumonia likely aspiration 3. Cachexia 4. Anemia Plan: Patient is clinically stable is being seen by pulmonary and gastroenterology teams, he is on broad-spectrum antibiotics however still spiking fevers. We will change Zosyn to meropenem, add Levaquin, continue vancomycin await for sputum culture Consultation Date/Type/Reason Admit Date/Time Jul 26, 2018 at 22:49 Initial Consult Date Type of Consult id Date/Time of Note DATE: 08/02/18 TIME: 15:17 Exam/Review of Systems Exam Vitals Vital Signs Date Temp Pulse Resp B/P (MAP) Pulse Ox O2 O2 Flow FiO2 Time Delivery Rate 08/02/18 108 20 95 Nasal 3.0 13:56 Cannula 08/02/18 98.2 131/83 11:15 (99) 08/01/18 21 01:40 Intake and Output 08/01/18 08/01/18 08/02/18 1414:59 22:59 06:59 IntakeIntake Total 50 ml 800 ml 2212 ml OutputOutput Total 900 ml 300 ml BalanceBalance 50 ml -100 ml 1912 ml Results Result Diagram: 08/02/18 1007 08/02/18 0545 Results 24hrs Laboratory Tests Test 08/01/18 20:40 08/02/18 05:19 08/02/18 05:45 08/02/18 10:07 Urine Color YELLOW Urine Clarity CLEAR Urine pH 5.0 Urine Specific 1.022 [place] Urine Ketones NEGATIVE Urine Nitrite NEGATIVE Urine Bilirubin NEGATIVE Urine Urobilinogen NEGATIVE Urine Leukocyte NEGATIVE Esterase Urine Hemoglobin NEGATIVE Urine Glucose 3+ H Urine Total Protein NEGATIVE Lab Scanned Report BLOOD TRANSFUSION White Blood Count 13.8 H Red Blood Count 2.86 #L Hemoglobin 8.4 #L 8.5 L Hematocrit 24.8 #L 25.6 L Mean Corpuscular 86.7 Volume Mean Corpuscular 29.4 Hemoglobin Mean Corpuscular 33.9 Hemoglobin Concent Red Cell 15.8 H Distribution Width Platelet Count 137 L Mean Platelet 10.0 Volume Immature 0.600 H Granulocytes % Neutrophils % Segmented 46 Neutrophils % (Manual) Band Neutrophils % 8 H (Manual) Lymphocytes % Lymphocytes % 38 (Manual) Reactive 4 H Lymphocytes % (Manual) Monocytes % Monocytes % 1 (Manual) Eosinophils % Eosinophils % 1 (Manual) Basophils % Basophils % 2 (Manual) Nucleated Red Blood 0.0 Cells % Immature 0.080 H Granulocytes # Neutrophils # Neutrophils # 6.5 (Manual) Band Neutrophils # 1.1 H Lymphocytes 5.2 H (Manual) Lymphocytes # Reactive 0.5 H Lymphocytes # Monocytes # Monocytes # 0.1 L (Manual) Eosinophils # Basophils # Basophils # 0.2 H (Manual) Nucleated Red Blood Cells # Platelet Estimate DECREASED Giant Platelets 2 H Polychromasia 1+ Poikilocytosis 1+ Anisocytosis 1+ Sodium Level 140 Potassium Level 3.5 Chloride Level 110 Carbon Dioxide 25 Level Anion Gap 5 Blood Urea Nitrogen 11 Creatinine 0.74 Est Glomerular > 60 Filtrat Rate mL/min Glucose Level 97 Calcium Level 8.1 L Phosphorus Level 2.5 Magnesium Level 2.0 Vancomycin Level 6.7 L Trough Medications Medication Current Medications IV Flush (NS 3 ml) 3 ml PER PROTOCOL IV ; Start 07/27/18 at 02:00 Ondansetron HCl (Zofran Inj) 4 mg Q6H PRN IV NAUSEA/VOMITING; Start 07/27/18 at 02:00 Acetaminophen (Tylenol Tab) 650 mg Q6H PRN PO .PAIN 1-3 OR TEMP Last administered on 08/02/18at 04:54; Admin Dose 650 MG; Start 07/27/18 at 02:00 Acetaminophen/ Hydrocodone Bitart ([place] (5/325)) 1 tab Q6H PRN PO .MOD PAIN 4- 6 Last administered on 07/28/18at 15:23; Admin Dose 1 TAB; Start 07/27/18 at 02:00 Acetaminophen/ Hydrocodone Bitart ([place] (5/325)) 2 tab Q6H PRN PO .SEVERE PAIN 7-10 Last administered on 08/02/18 04:56; Admin Dose 2 TAB; Start 07/27/18 at 02:00 Docusate Sodium (Colace) 100 mg BID PO Last administered on 08/02/18 08:25; Admin Dose 100 MG; Start 07/29/18 at 23:30 Polyethylene Glycol (Miralax) 17 gm DAILY PO Last administered on 08/02/18 08:25; Admin Dose 17 GM; Start 07/30/18 at 09:00 Levalbuterol (Xopenex Neb) 0.63 mg Q6H RESP THERAPY HHN Last administered on 08/02/18 13:54; Admin Dose 0.63 MG; Start 07/30/18 at 14:00 Piperacillin Sod/ Tazobactam Sod 100 ml @ 200 mls/hr Q6 IVPB Last administered on 08/02/18 12:17; Admin Dose 200 MLS/HR; Start 07/30/18 at 12:00 Vancomycin HCl (Vanco Iv Per Pharmacy) VANCOMYCIN PER PHARMACY PER PROTOCOL XX ; Start 07/30/18 at 11:30 Sodium Chloride 1,000 ml @ 100 mls/hr Q10H IV Last administered on 08/02/18 11:16; Admin Dose 100 MLS/HR; Start 07/30/18 at 12:30 IV Flush (NS 10 ml) 10 ml PRN PRN IV IV PROTOCOL; Start 07/30/18 at 16:30 Pantoprazole (Protonix Iv) 40 mg BID@06,18 IV Last administered on 08/02/18 05:02; Admin Dose 40 MG; Start 08/01/18 at 18:00 Vancomycin HCl 250 ml @ 125 mls/hr Q8H IVPB Last administered on 08/02/18 13:18; Admin Dose 125 MLS/HR; Start 08/02/18 at 12:00 AMANDA KLEIN NP Aug 02, 2018 15:18
[2018-08-02] MEDS: MEROPENEM 1 GM/50ML(PMX) 50 ML IVPB SCH ×2 (16:35→21:56)
--- NOTE | 2018-08-02 16:48 | CONS ---
Assessment/Plan Assessment/Plan Assessment/Plan (Daily) IMPRESSION: 1. Epigastric pain -s/p EGD 07/29 2. Dysphagia to solid food. Rule out malignancy, especially esophageal stricture. 3. Cachexia. 4. Hypertension. 5. History of bronchial asthma. 6. Necrotizing duodenal ulcer 7. Multiple linear esophageal ulcers 8. Gastritis 9. Esophagitis 10 rectal bleeding, resolved PLAN: [id number] One unit PRBC for hgb less than 7.0 Pending lactic acid Dulcolax [address] x 1 Continue NPO Continue Protonix gtt x 72 hours (started 3/ night) Continue Carafate Consultation Date/Type/Reason Admit Date/Time Jul 26, 2018 at 22:49 Initial Consult Date Date/Time of Note DATE: 08/02/18 TIME: 16:48 24 HR Interval Summary Free Text/Dictation No black stool or melena Constitutional: no complaints, improved Exam/Review of Systems Exam Vitals Vital Signs Date Temp Pulse Resp B/P (MAP) Pulse Ox O2 O2 Flow FiO2 Time Delivery Rate 08/02/18 98.1 110 18 147/87 97 15:17 (107) 08/02/18 Nasal 3.0 13:56 Cannula 08/01/18 21 01:40 Intake and Output 08/01/18 08/01/18 08/02/18 1414:59 22:59 06:59 IntakeIntake Total 50 ml 800 ml 2212 ml OutputOutput Total 900 ml 300 ml BalanceBalance 50 ml -100 ml 1912 ml Constitutional: alert, oriented, well developed Psych: no complaints, nl mood/affect Head: normocephalic, atraumatic Eyes: nl conjunctiva, EOMI, nl lids, nl sclera, PERRL ENMT: nl external ears & nose, nl lips & teeth, nl nasal mucosa & septum Neck: supple, non-tender Respiratory: clear to auscultation, normal air movement Cardiovascular: regular rate and rhythm, nl pulses Gastrointestinal: soft, nl liver, spleen, non-tender Musculoskeletal: nl extremities to inspection, nl gait and stance Extremities: normal pulses Neurological: CADDIE SUPERVISOR II-XII intact, nl mental status, nl speech, nl strength Skin: nl turgor; No rash or lesions Lymph: nl lymph nodes Results Result Diagram: 08/02/18 1007 08/02/18 0545 Results 24hrs Laboratory Tests Test 08/01/18 20:40 08/02/18 05:19 08/02/18 05:45 08/02/18 10:07 Urine Color YELLOW Urine Clarity CLEAR Urine pH 5.0 Urine Specific 1.022 [place] Urine Ketones NEGATIVE Urine Nitrite NEGATIVE Urine Bilirubin NEGATIVE Urine Urobilinogen NEGATIVE Urine Leukocyte NEGATIVE Esterase Urine Hemoglobin NEGATIVE Urine Glucose 3+ H Urine Total Protein NEGATIVE Lab Scanned Report BLOOD TRANSFUSION White Blood Count 13.8 H Red Blood Count 2.86 #L Hemoglobin 8.4 #L 8.5 L Hematocrit 24.8 #L 25.6 L Mean Corpuscular 86.7 Volume Mean Corpuscular 29.4 Hemoglobin Mean Corpuscular 33.9 Hemoglobin Concent Red Cell 15.8 H Distribution Width Platelet Count 137 L Mean Platelet 10.0 Volume Immature 0.600 H Granulocytes % Neutrophils % Segmented 46 Neutrophils % (Manual) Band Neutrophils % 8 H (Manual) Lymphocytes % Lymphocytes % 38 (Manual) Reactive 4 H Lymphocytes % (Manual) Monocytes % Monocytes % 1 (Manual) Eosinophils % Eosinophils % 1 (Manual) Basophils % Basophils % 2 (Manual) Nucleated Red Blood 0.0 Cells % Immature 0.080 H Granulocytes # Neutrophils # Neutrophils # 6.5 (Manual) Band Neutrophils # 1.1 H Lymphocytes 5.2 H (Manual) Lymphocytes # Reactive 0.5 H Lymphocytes # Monocytes # Monocytes # 0.1 L (Manual) Eosinophils # Basophils # Basophils # 0.2 H (Manual) Nucleated Red Blood Cells # Platelet Estimate DECREASED Giant Platelets 2 H Polychromasia 1+ Poikilocytosis 1+ Anisocytosis 1+ Sodium Level 140 Potassium Level 3.5 Chloride Level 110 Carbon Dioxide 25 Level Anion Gap 5 Blood Urea Nitrogen 11 Creatinine 0.74 Est Glomerular > 60 Filtrat Rate mL/min Glucose Level 97 Calcium Level 8.1 L Phosphorus Level 2.5 Magnesium Level 2.0 Vancomycin Level 6.7 L Trough Medications Medication Current Medications IV Flush (NS 3 ml) 3 ml PER PROTOCOL IV ; Start 07/27/18 at 02:00 Ondansetron HCl (Zofran Inj) 4 mg Q6H PRN IV NAUSEA/VOMITING; Start 07/27/18 at 02:00 Acetaminophen (Tylenol Tab) 650 mg Q6H PRN PO .PAIN 1-3 OR TEMP Last administered on 08/02/18at 04:54; Admin Dose 650 MG; Start 07/27/18 at 02:00 Acetaminophen/ Hydrocodone Bitart ([place] (5/325)) 1 tab Q6H PRN PO .MOD PAIN 4- 6 Last administered on 07/28/18 15:23; Admin Dose 1 TAB; Start 07/27/18 at 02:00 Acetaminophen/ Hydrocodone Bitart ([place] (5/325)) 2 tab Q6H PRN PO .SEVERE PAIN 7-10 Last administered on 08/02/18 04:56; Admin Dose 2 TAB; Start 07/27/18 at 02:00 Docusate Sodium (Colace) 100 mg BID PO Last administered on 08/02/18 08:25; Admin Dose 100 MG; Start 07/29/18 at 23:30 Polyethylene Glycol (Miralax) 17 gm DAILY PO Last administered on 08/02/18 08:25; Admin Dose 17 GM; Start 07/30/18 at 09:00 Levalbuterol (Xopenex Neb) 0.63 mg Q6H RESP THERAPY HHN Last administered on 08/02/18 13:54; Admin Dose 0.63 MG; Start 07/30/18 at 14:00 Vancomycin HCl (Vanco Iv Per Pharmacy) VANCOMYCIN PER PHARMACY PER PROTOCOL XX ; Start 07/30/18 at 11:30 Sodium Chloride 1,000 ml @ 100 mls/hr Q10H IV Last administered on 08/02/18 11:16; Admin Dose 100 MLS/HR; Start 07/30/18 at 12:30 IV Flush (NS 10 ml) 10 ml PRN PRN IV IV PROTOCOL; Start 07/30/18 at 16:30 Pantoprazole (Protonix Iv) 40 mg BID@06,18 IV Last administered on 08/02/18 05:02; Admin Dose 40 MG; Start 08/01/18 at 18:00 Vancomycin HCl 250 ml @ 125 mls/hr Q8H IVPB Last administered on 08/02/18 13:18; Admin Dose 125 MLS/HR; Start 08/02/18 at 12:00 Meropenem/Sodium Chloride 50 ml @ 100 mls/hr Q8 IVPB Last administered on 08/02/18 16:35; Admin Dose 100 MLS/HR; Start 08/02/18 at 16:00 Levofloxacin/ Dextrose 100 ml @ 100 mls/hr Q24H IVPB ; Start 08/02/18 at 17:00 TRUMAN ARRINGTON MD Aug 02, 2018 16:48
[2018-08-02] MEDS: LEVOFLOXACIN 500MG/D5W (PMX) 100 ML IVPB SCH (17:12)
[2018-08-03] VITALS (12 sets, daily range): BP systolic 115–144; BP diastolic 73–86; PULSE 99–152; RESP 18–36
[2018-08-03] MEDS: LEVALBUTEROL (NEB) 0.63 MG/3 ML AMP HHN SCH ×4 (01:33→19:47)
[2018-08-03] MEDS: MEROPENEM 1 GM/50ML(PMX) 50 ML IVPB SCH ×3 (05:17→23:01)
[2018-08-03] MEDS: PANTOPRAZOLE 40 MG INJ IV SCH ×2 (05:18→18:27)
[2018-08-03] MEDS: VANCOMYCIN 1 GM 250 ML IVPB SCH ×3 (05:36→20:40)
[2018-08-03] MEDS: SOD CHLORIDE 0.9% 1,000 ML IV SCH (05:44)
--- NOTE | 2018-08-03 07:42 | PN ---
Date/Time of Note Date/Time of Note DATE: 08/03/18 TIME: 07:42 Assessment/Plan VTE Prophylaxis Risk score (from Ns)>0 risk: 7 SCD applied (from Ns): Yes Pharmacological prophylaxis: NA/contraindicated Pharm contraindication: bleeding Lines/Catheters [facility] P[facility] Line Central line still needed: Yes Urinary Cath still in place: No Assessment/Plan Hospital Course SUBJECTIVE: Denies any abdominal pain at this time. No more episodes of melena. OBJECTIVE: Physical Exam General: Thin, frail looking, 63 year-old male lying in bed in no apparent distress. HEENT: Normocephalic, atraumatic. Eyes: Anicteric sclerae, conjunctivae clear. ENT: Nasal septum midline, oral mucosa moist. Neck supple, no JVD noticed. Respiratory: Bilaterally diminished breath sounds. No use of accessory muscles of respiration. Cardiovascular: S1, S2 heard. Regular rate and rhythm. Abdomen: Soft and scaphoid. Nontender, and nondistended. Bowel sounds positive in all 4 quadrants. Genitourinary: Deferred. Extremities: No cyanosis, no clubbing, no edema. Peripheral pulses palpable. Neurologic: Cranial nerves II through XII grossly intact. The patient is awake, alert, and oriented. Skin: Normal skin turgor. No skin rashes. Labs & Vitals per chart ASSESSMENT & PLAN 63-year-old male with past medical history of hypertension, asthma, dyslipidemia, and pancreatitis who came to the emergency room with epigastric pain and unintentional weight loss with the CT scan showing contracted gallbladder wall with possible wall thickening and some fluid adjacent to the gallbladder and duodenum with small 9 mm dense or enhancing focus adjacent to the gallbladder. The patient was admitted to inpatient setting for further treatment and evaluation. The patient was initially on the medical surgical f jocelyn. The patient was moved to intensive care unit on 07/30/2018 after a rapid response was called because of significant gastrointestinal bleeding with resultant hypotension. 1. Epigastric pain. -Etiology unclear. -Gallbladder ultrasound negative for any gallstones. LFTs within normal limits. -Being followed by gastroenterology. -Status post esophagogastroduodenoscopy on 07/29/2018 that showed necrotizing duodenal ulcer, gastritis, multiple esophageal ulcers, and esophagitis. -Status post post colonoscopy on status post colonoscopy on 08/01/2018 that showed colonic diverticulosis. -Continue PPI and Carafate. 2. Dysphagia to solid foods. -Being followed by gastroenterology. -Status post esophagogastroduodenoscopy on 07/29/2018 that showed esophagitis and esophageal ulcers. -Currently on mechanical soft diet. 3. Melena with hypotension episode on 07/30/2018. -The patient was moved to intensive care unit after rapid response. -S/P Levophed drip. -Being followed by gastroenterology. 4. Anemia of acute blood loss. -Transfuse blood products as needed. 5. Shock on 07/30/2018. -Most probably hypovolemic shock secondary to acute blood loss. -S/P IV pressors. 6. Sepsis with septic shock on 07/30/2018. -Etiology could be multifocal pneumonia, possible aspiration. -Continue antimicrobials including coverage for anaerobes. -ID following. 7. Acute respiratory failure. -Hypoxic -Etiology unclear. -Continue supplemental oxygen and inhaled bronchodilators. -Pulmonary evaluation. 8. History of dyslipidemia. -Fasting lipid panel satisfactory. 9. Severe protein calorie malnutrition. -Being evaluated for any underlying malignancy. -Dietary consult. 10. Fluids, electrolytes, and nutrition. -Regular diet. 11. DVT prophylaxis -B/L SCDs. -No heparin because of bleeding. 12. Plan. -Continue PPI. -Monitor serial H&H. -Transfuse blood products as needed. -Continue empiric antimicrobials. -Replete electrolytes. On 08/02/2018, asked the patient about his wishes in case if he becomes incapacitated. The patient wants to remain a full code and wants to do all everything possible to keep him alive. The patient does not have any surrogate decision makers including any family members, friends, or significant others. The conversation was witnessed by the patient's primary RN. The patient was seen in collaboration with Dr. Dickinson.. Result Diagram: 08/03/18 0546 08/03/18 0546 Results 24hrs Laboratory Tests Test 08/02/18 10:07 08/03/18 05:46 Hemoglobin 8.5 L 8.2 L Hematocrit 25.6 L 24.3 L Vancomycin Level Trough 6.7 L White Blood Count 12.0 H Red Blood Count 2.81 L Mean Corpuscular Volume 86.5 Mean Corpuscular Hemoglobin 29.2 Mean Corpuscular Hemoglobin Concent 33.7 Red Cell Distribution Width 15.2 H Platelet Count 163 Mean Platelet Volume 10.0 Immature Granulocytes % 0.700 H Neutrophils % 78.0 H Lymphocytes % 9.8 L Monocytes % 9.7 Eosinophils % 1.5 Basophils % 0.3 Nucleated Red Blood Cells % 0.0 Immature Granulocytes # 0.090 H Neutrophils # 9.4 H Lymphocytes # 1.2 Monocytes # 1.2 H Eosinophils # 0.2 Basophils # 0.0 Nucleated Red Blood Cells # 0.0 Sodium Level 143 Potassium Level 3.0 L Chloride Level 106 Carbon Dioxide Level 28 Anion Gap 9 Blood Urea Nitrogen 9 Creatinine 0.66 Est Glomerular Filtrat Rate mL/min > 60 Glucose Level 122 Calcium Level 7.2 L Phosphorus Level 2.1 L Magnesium Level 1.7 Exam/Review of Systems Exam Vitals Vital Signs Date Temp Pulse Resp B/P (MAP) Pulse Ox O2 O2 Flow FiO2 Time Delivery Rate 08/03/18 98.2 99 32 144/86 100 Nasal 07:38 (105) Cannula 08/03/18 3.0 01:33 08/01/18 21 01:40 Intake and Output 08/02/18 08/02/18 08/03/18 1515:00 23:00 07:00 IntakeIntake Total 1400 ml 1700 ml OutputOutput Total 3100 ml 3000 ml BalanceBalance -1700 ml -1300 ml Results Results 24hrs Laboratory Tests Test 08/02/18 10:07 08/03/18 05:46 Hemoglobin 8.5 L 8.2 L Hematocrit 25.6 L 24.3 L Vancomycin Level Trough 6.7 L White Blood Count 12.0 H Red Blood Count 2.81 L Mean Corpuscular Volume 86.5 Mean Corpuscular Hemoglobin 29.2 Mean Corpuscular Hemoglobin Concent 33.7 Red Cell Distribution Width 15.2 H Platelet Count 163 Mean Platelet Volume 10.0 Immature Granulocytes % 0.700 H Neutrophils % 78.0 H Lymphocytes % 9.8 L Monocytes % 9.7 Eosinophils % 1.5 Basophils % 0.3 Nucleated Red Blood Cells % 0.0 Immature Granulocytes # 0.090 H Neutrophils # 9.4 H Lymphocytes # 1.2 Monocytes # 1.2 H Eosinophils # 0.2 Basophils # 0.0 Nucleated Red Blood Cells # 0.0 Sodium Level 143 Potassium Level 3.0 L Chloride Level 106 Carbon Dioxide Level 28 Anion Gap 9 Blood Urea Nitrogen 9 Creatinine 0.66 Est Glomerular Filtrat Rate mL/min > 60 Glucose Level 122 Calcium Level 7.2 L Phosphorus Level 2.1 L Magnesium Level 1.7 Medications Medication Current Medications IV Flush (NS 3 ml) 3 ml PER PROTOCOL IV ; Start 07/27/18 at 02:00 Ondansetron HCl (Zofran Inj) 4 mg Q6H PRN IV NAUSEA/VOMITING; Start 07/27/18 at 02:00 Acetaminophen (Tylenol Tab) 650 mg Q6H PRN PO .PAIN 1-3 OR TEMP Last administered on 08/02/18 19:46; Admin Dose 650 MG; Start 07/27/18 at 02:00 Acetaminophen/ Hydrocodone Bitart ([place] (5/325)) 1 tab Q6H PRN PO .MOD PAIN 4- 6 Last administered on 07/28/18 15:23; Admin Dose 1 TAB; Start 07/27/18 at 02:00 Acetaminophen/ Hydrocodone Bitart ([place] (5/325)) 2 tab Q6H PRN PO .SEVERE PAIN 7-10 Last administered on 08/02/18 04:56; Admin Dose 2 TAB; Start 07/27/18 at 02:00 Docusate Sodium (Colace) 100 mg BID PO Last administered on 08/02/18 20:05; Admin Dose 100 MG; Start 07/29/18 at 23:30 Polyethylene Glycol (Miralax) 17 gm DAILY PO Last administered on 08/02/18 08:25; Admin Dose 17 GM; Start 07/30/18 at 09:00 Levalbuterol (Xopenex Neb) 0.63 mg Q6H RESP THERAPY HHN Last administered on 08/03/18 01:33; Admin Dose 0.63 MG; Start 07/30/18 at 14:00 Vancomycin HCl (Vanco Iv Per Pharmacy) VANCOMYCIN PER PHARMACY PER PROTOCOL XX ; Start 07/30/18 at 11:30 Sodium Chloride 1,000 ml @ 100 mls/hr Q10H IV Last administered on 08/03/18 05:44; Admin Dose 100 MLS/HR; Start 07/30/18 at 12:30 IV Flush (NS 10 ml) 10 ml PRN PRN IV IV PROTOCOL; Start 07/30/18 at 16:30 Pantoprazole (Protonix Iv) 40 mg BID@06,18 IV Last administered on 08/03/18at 05:18; Admin Dose 40 MG; Start 08/01/18 at 18:00 Vancomycin HCl 250 ml @ 125 mls/hr Q8H IVPB Last administered on 08/03/18at 05:36; Admin Dose 125 MLS/HR; Start 08/02/18 at 12:00 Meropenem/Sodium Chloride 50 ml @ 100 mls/hr Q8 IVPB Last administered on 08/03/18at 05:17; Admin Dose 100 MLS/HR; Start 08/02/18 at 16:00 Levofloxacin/ Dextrose 100 ml @ 100 mls/hr Q24H IVPB Last administered on at 17:12; Admin Dose 100 MLS/HR; Start 08/02/18 at 17:00 RADHA LI NP Aug 03, 2018 07:42
[2018-08-03] MEDS: POLYETHYLENE GLYCOL 17 GM PACKET PO SCH (09:06)
[2018-08-03] MEDS: DOCUSATE SODIUM 100 MG CAP PO SCH ×2 (09:06→20:40)
--- NOTE | 2018-08-03 10:46 | CONS ---
Assessment/Plan Assessment/Plan Hospital Course (Demo Recall) Interval HX- Resting in bed comfortably, tolerating po well. IMPRESSION: 1. Epigastric pain -s/p EGD 07/29 2. Dysphagia to solid food. Rule out malignancy, especially esophageal stricture. 3. Cachexia. 4. Hypertension. 5. History of bronchial asthma. 6. Necrotizing duodenal ulcer 7. Multiple linear esophageal ulcers 8. Gastritis 9. Esophagitis 10 rectal bleeding, resolved PLAN: One unit PRBC for hgb less than 7.0 Regular diet, tolerating well Carafate, PPI, Antiemetics Patient examined and plan of care discussed with Dr Lassiter Consultation Date/Type/Reason Admit Date/Time Jul 26, 2018 at 22:49 Initial Consult Date Date/Time of Note DATE: 08/03/18 TIME: 10:42 Exam/Review of Systems Exam Vitals Vital Signs Date Temp Pulse Resp B/P (MAP) Pulse Ox O2 O2 Flow FiO2 Time Delivery Rate 08/03/18 Nasal 2.0 08:30 Cannula 08/03/18 121 08:01 08/03/18 20 98 07:40 08/03/18 98.2 144/86 07:38 (105) 08/01/18 21 01:40 Intake and Output 08/02/18 08/02/18 08/03/18 1515:00 23:00 07:00 IntakeIntake Total 1400 ml 1700 ml OutputOutput Total 3100 ml 3000 ml BalanceBalance -1700 ml -1300 ml Constitutional: alert, oriented (Cachectic) Psych: no complaints Head: normocephalic Eyes: nl conjunctiva ENMT: nl external ears & nose, nl lips & teeth Neck: supple Respiratory: clear to auscultation Cardiovascular: regular rate and rhythm, nl pulses Gastrointestinal: soft, non-tender Musculoskeletal: nl extremities to inspection Extremities: normal pulses Neurological: TRIPE WASHER II-XII intact Results Result Diagram: 08/03/1846 08/03/1846 Results 24hrs Laboratory Tests Test 08/03/18 05:46 White Blood Count 12.0 H Red Blood Count 2.81 L Hemoglobin 8.2 L Hematocrit 24.3 L Mean Corpuscular Volume 86.5 Mean Corpuscular Hemoglobin 29.2 Mean Corpuscular Hemoglobin Concent 33.7 Red Cell Distribution Width 15.2 H Platelet Count 163 Mean Platelet Volume 10.0 Immature Granulocytes % 0.700 H Neutrophils % 78.0 H Segmented Neutrophils % (Manual) 64 Band Neutrophils % (Manual) 11 H Lymphocytes % 9.8 L Lymphocytes % (Manual) 12 L Monocytes % 9.7 Monocytes % (Manual) 10 Eosinophils % 1.5 Eosinophils % (Manual) 2 Basophils % 0.3 Promyelocytes % (Manual) 1 H Nucleated Red Blood Cells % 0.0 Immature Granulocytes # 0.090 H Neutrophils # 9.4 H Neutrophils # (Manual) 7.8 H Band Neutrophils # 1.3 H Lymphocytes (Manual) 1.4 Lymphocytes # 1.2 Monocytes # 1.2 H Monocytes # (Manual) 1.2 H Eosinophils # 0.2 Basophils # 0.0 Promyelocytes # 0.1 H Nucleated Red Blood Cells # 0.0 Platelet Estimate NORMAL Giant Platelets 1 H Ovalocytes 1+ Sodium Level 143 Potassium Level 3.0 L Chloride Level 106 Carbon Dioxide Level 28 Anion Gap 9 Blood Urea Nitrogen 9 Creatinine 0.66 Est Glomerular Filtrat Rate mL/min > 60 Glucose Level 122 Calcium Level 7.2 L Phosphorus Level 2.1 L Magnesium Level 1.7 Medications Medication Current Medications IV Flush (NS 3 ml) 3 ml PER PROTOCOL IV ; Start 07/27/18 at 02:00 Ondansetron HCl (Zofran Inj) 4 mg Q6H PRN IV NAUSEA/VOMITING; Start 07/27/18 at 02:00 Acetaminophen (Tylenol Tab) 650 mg Q6H PRN PO .PAIN 1-3 OR TEMP Last administered on 08/02/18 19:46; Admin Dose 650 MG; Start 07/27/18 at 02:00 Acetaminophen/ Hydrocodone Bitart ([place] (5/325)) 1 tab Q6H PRN PO .MOD PAIN 4- 6 Last administered on 07/28/18 15:23; Admin Dose 1 TAB; Start 07/27/18 at 02:00 Acetaminophen/ Hydrocodone Bitart ([place] (5/325)) 2 tab Q6H PRN PO .SEVERE PAIN 7-10 Last administered on 08/02/18 04:56; Admin Dose 2 TAB; Start 07/27/18 at 02:00 Docusate Sodium (Colace) 100 mg BID PO Last administered on 08/03/18 09:06; Admin Dose 100 MG; Start 07/29/18 at 23:30 Polyethylene Glycol (Miralax) 17 gm DAILY PO Last administered on 08/03/18 09:06; Admin Dose 17 GM; Start 07/30/18 at 09:00 Levalbuterol (Xopenex Neb) 0.63 mg Q6H RESP THERAPY HHN Last administered on 08/03/18 07:40; Admin Dose 0.63 MG; Start 07/30/18 at 14:00 Vancomycin HCl (Vanco Iv Per Pharmacy) VANCOMYCIN PER PHARMACY PER PROTOCOL XX ; Start 07/30/18 at 11:30 Sodium Chloride 1,000 ml @ 100 mls/hr Q10H IV Last administered on 08/03/18 05:44; Admin Dose 100 MLS/HR; Start 07/30/18 at 12:30 IV Flush (NS 10 ml) 10 ml PRN PRN IV IV PROTOCOL; Start 07/30/18 at 16:30 Pantoprazole (Protonix Iv) 40 mg BID@06,18 IV Last administered on 08/03/18 05:18; Admin Dose 40 MG; Start 08/01/18 at 18:00 Vancomycin HCl 250 ml @ 125 mls/hr Q8H IVPB Last administered on 08/03/18 05:36; Admin Dose 125 MLS/HR; Start 08/02/18 at 12:00 Meropenem/Sodium Chloride 50 ml @ 100 mls/hr Q8 IVPB Last administered on 08/03/18 05:17; Admin Dose 100 MLS/HR; Start 08/02/18 at 16:00 Levofloxacin/ Dextrose 100 ml @ 100 mls/hr Q24H IVPB Last administered on 08/02/18 17:12; Admin Dose 100 MLS/HR; Start 08/02/18 at 17:00 RAMANA DING NP Aug 03, 2018 10:45
--- NOTE | 2018-08-03 11:42 | CONS ---
Consult Date/Type/Reason Admit Date/Time Jul 26, 2018 at 22:49 Initial Consult Date Type of Consult Pulmonary Date/Time of Note DATE: 08/03/18 TIME: 11:38 Subjective Patient slowly improving. Denies shortness of breath this morning. Objective Vital Signs Date Temp Pulse Resp B/P (MAP) Pulse Ox O2 O2 Flow FiO2 Time Delivery Rate 08/03/18 97.7 104 36 127/75 11:12 (92) 08/03/18 Nasal 2.0 08:30 Cannula 08/03/18 98 07:40 08/01/18 21 01:40 Intake and Output 08/02/18 08/02/18 08/03/18 1515:00 23:00 07:00 IntakeIntake Total 1400 ml 1700 ml OutputOutput Total 3100 ml 3000 ml BalanceBalance -1700 ml -1300 ml Exam Thin older than age appearing -[place] gentleman GENERAL: VITAL SIGNS: per chart NECK: Supple. No JVD or lymphadenopathy. CARDIAC EXAM: S1, S2. No added sounds or murmurs. CHEST: clear bilaterally, No added sounds, rales or wheezes ABDOMEN: Soft, nontender. No guarding or rebound. EXTREMITIES: No cyanosis, clubbing or edema. NEUROLOGIC: Generalized weakness. No focal deficits. Vent Setting Fraction of Inspired Oxygen pe: 21 Results/Medications Result Diagram: 08/03/18 0546 08/03/18 0546 Results 24 hrs Laboratory Tests Test 08/03/18 05:46 White Blood Count 12.0 H Red Blood Count 2.81 L Hemoglobin 8.2 L Hematocrit 24.3 L Mean Corpuscular Volume 86.5 Mean Corpuscular Hemoglobin 29.2 Mean Corpuscular Hemoglobin Concent 33.7 Red Cell Distribution Width 15.2 H Platelet Count 163 Mean Platelet Volume 10.0 Immature Granulocytes % 0.700 H Neutrophils % 78.0 H Segmented Neutrophils % (Manual) 64 Band Neutrophils % (Manual) 11 H Lymphocytes % 9.8 L Lymphocytes % (Manual) 12 L Monocytes % 9.7 Monocytes % (Manual) 10 Eosinophils % 1.5 Eosinophils % (Manual) 2 Basophils % 0.3 Promyelocytes % (Manual) 1 H Nucleated Red Blood Cells % 0.0 Immature Granulocytes # 0.090 H Neutrophils # 9.4 H Neutrophils # (Manual) 7.8 H Band Neutrophils # 1.3 H Lymphocytes (Manual) 1.4 Lymphocytes # 1.2 Monocytes # 1.2 H Monocytes # (Manual) 1.2 H Eosinophils # 0.2 Basophils # 0.0 Promyelocytes # 0.1 H Nucleated Red Blood Cells # 0.0 Platelet Estimate NORMAL Giant Platelets 1 H Ovalocytes 1+ Sodium Level 143 Potassium Level 3.0 L Chloride Level 106 Carbon Dioxide Level 28 Anion Gap 9 Blood Urea Nitrogen 9 Creatinine 0.66 Est Glomerular Filtrat Rate mL/min > 60 Glucose Level 122 Calcium Level 7.2 L Phosphorus Level 2.1 L Magnesium Level 1.7 Medications Current Medications IV Flush (NS 3 ml) 3 ml PER PROTOCOL IV ; Start 07/27/18 at 02:00 Ondansetron HCl (Zofran Inj) 4 mg Q6H PRN IV NAUSEA/VOMITING; Start 07/27/18 at 02:00 Acetaminophen (Tylenol Tab) 650 mg Q6H PRN PO .PAIN 1-3 OR TEMP Last administered on 08/02/18 19:46; Admin Dose 650 MG; Start 07/27/18 at 02:00 Acetaminophen/ Hydrocodone Bitart ([place] (5/325)) 1 tab Q6H PRN PO .MOD PAIN 4- 6 Last administered on 07/28/18 15:23; Admin Dose 1 TAB; Start 07/27/18 at 02:00 Acetaminophen/ Hydrocodone Bitart ([place] (5/325)) 2 tab Q6H PRN PO .SEVERE PAIN 7-10 Last administered on 08/02/18 04:56; Admin Dose 2 TAB; Start 07/27/18 at 02:00 Docusate Sodium (Colace) 100 mg BID PO Last administered on 08/03/18 09:06; Admin Dose 100 MG; Start 07/29/18 at 23:30 Polyethylene Glycol (Miralax) 17 gm DAILY PO Last administered on 08/03/18 09:06; Admin Dose 17 GM; Start 07/30/18 at 09:00 Levalbuterol (Xopenex Neb) 0.63 mg Q6H RESP THERAPY HHN Last administered on 08/03/18 07:40; Admin Dose 0.63 MG; Start 07/30/18 at 14:00 Vancomycin HCl (Vanco Iv Per Pharmacy) VANCOMYCIN PER PHARMACY PER PROTOCOL XX ; Start 07/30/18 at 11:30 Sodium Chloride 1,000 ml @ 100 mls/hr Q10H IV Last administered on 08/03/18at 05:44; Admin Dose 100 MLS/HR; Start 07/30/18 at 12:30 IV Flush (NS 10 ml) 10 ml PRN PRN IV IV PROTOCOL; Start 07/30/18 at 16:30 Pantoprazole (Protonix Iv) 40 mg BID@06,18 IV Last administered on 08/03/18at 05:18; Admin Dose 40 MG; Start 08/01/18 at 18:00 Vancomycin HCl 250 ml @ 125 mls/hr Q8H IVPB Last administered on 08/03/18at 05:36; Admin Dose 125 MLS/HR; Start 08/02/18 at 12:00 Meropenem/Sodium Chloride 50 ml @ 100 mls/hr Q8 IVPB Last administered on 08/03/18at 05:17; Admin Dose 100 MLS/HR; Start 08/02/18 at 16:00 Levofloxacin/ Dextrose 100 ml @ 100 mls/hr Q24H IVPB Last administered on 08/02/18at 17:12; Admin Dose 100 MLS/HR; Start 08/02/18 at 17:00 Assessment/Plan Hospital Course (Demo Recall) Assessment 1. Acute hypoxemic respiratory failure possible aspiration pneumonia 2. Probable component of congestive heart failure 3. Significant cachexia and weight loss concerning for underlying malignancy 4. Anemia status post EGD 5. Questionable component of CHF Plan 1. Decrease O2 as tolerated 2. Radiographic improvement suggest Some improvement with antibiotics 3. Echocardiogram trial of Lasix 4. Repeat x-ray in [place].MARYANN Aguilar MD, [facility] Aug 03, 2018 11:42
[2018-08-03] MEDS: SUCRALFATE 1 GM TAB PO SCH ×3 (12:13→20:40)
[2018-08-03] MEDS: FUROSEMIDE 40 MG INJ IV SCH (12:17)
[2018-08-03] MEDS ORDERED: POTASSIUM CHLORIDE (SR) 20 MEQ TAB PO STA (13:07)
[2018-08-03] MEDS ORDERED: MAGNESIUM SULFATE 2 GM/50 ML 50 ML IVPB ONE (13:30)
[2018-08-03] MEDS ORDERED: POTASSIUM PHOSPHATE 15 MM in SOD CHLORIDE 0.9% 250 ML IVPB ONE (13:30)
--- NOTE | 2018-08-03 14:04 | CONS ---
Consultation Date/Type/Reason Admit Date/Time Jul 26, 2018 at 22:49 Initial Consult Date SUBJECTIVE: Patient is awake, alert, afebrile. No acute events over night. No fevers since yesterday. VS: stable T: 97.7 LABS: Reviewed. WBC-12.0 -Improving. Microbiology: Blood cultures remain negative LIVE STAIN Final POLYMORPH. LEUKOCYTE 1+ GRAM POSITIVE COCCI NONE SEEN RESPIRATORY CULTURE Final Organism 1 NORMAL RESPIRATORY LILIAM QUANTITY RARE Indwelling: Right upper extremity PICC line Antimicrobials: Vancomycin, Merrem, Levaquin Physical examination: GEN: Well-developed chronically ill-appearing elderly -[place] man who is awake in no distress. HENT: Head atraumatic normocephalic, sclera nonicteric. Neck is supple PULM: chest rise symmetrical breath sounds with scattered crackles. Heart: S1-S2. Abdomen soft bowel sounds present. Assessment: 1. Sepsis with ongoing fevers and leukocytosis, present on admission 2. Bilateral pneumonia likely aspiration 3. Cachexia 4. Anemia Plan: Patient is clinically stable. Pulm and GI recommendations noted. WBC improving and no fevers today. Will continue current antbx treatment. Sputum culture is negative. Date/Time of Note DATE: 08/03/18 TIME: 13:59 Exam/Review of Systems Exam Vitals Vital Signs Date Temp Pulse Resp B/P (MAP) Pulse Ox O2 O2 Flow FiO2 Time Delivery Rate 08/03/18 103 20 95 Nasal 2.0 13:37 Cannula 08/03/18 97.7 127/75 11:12 (92) 08/01/18 21 01:40 Intake and Output 08/02/18 08/02/18 08/03/18 1414:59 22:59 06:59 IntakeIntake Total 1400 ml 1700 ml OutputOutput Total 3100 ml 3000 ml BalanceBalance -1700 ml -1300 ml Results Result Diagram: 08/03/18 0546 08/03/1846 Results 24hrs Laboratory Tests Test 08/03/18 05:46 White Blood Count 12.0 H Red Blood Count 2.81 L Hemoglobin 8.2 L Hematocrit 24.3 L Mean Corpuscular Volume 86.5 Mean Corpuscular Hemoglobin 29.2 Mean Corpuscular Hemoglobin Concent 33.7 Red Cell Distribution Width 15.2 H Platelet Count 163 Mean Platelet Volume 10.0 Immature Granulocytes % 0.700 H Neutrophils % 78.0 H Segmented Neutrophils % (Manual) 64 Band Neutrophils % (Manual) 11 H Lymphocytes % 9.8 L Lymphocytes % (Manual) 12 L Monocytes % 9.7 Monocytes % (Manual) 10 Eosinophils % 1.5 Eosinophils % (Manual) 2 Basophils % 0.3 Promyelocytes % (Manual) 1 H Nucleated Red Blood Cells % 0.0 Immature Granulocytes # 0.090 H Neutrophils # 9.4 H Neutrophils # (Manual) 7.8 H Band Neutrophils # 1.3 H Lymphocytes (Manual) 1.4 Lymphocytes # 1.2 Monocytes # 1.2 H Monocytes # (Manual) 1.2 H Eosinophils # 0.2 Basophils # 0.0 Promyelocytes # 0.1 H Nucleated Red Blood Cells # 0.0 Platelet Estimate NORMAL Giant Platelets 1 H Ovalocytes 1+ Sodium Level 143 Potassium Level 3.0 L Chloride Level 106 Carbon Dioxide Level 28 Anion Gap 9 Blood Urea Nitrogen 9 Creatinine 0.66 Est Glomerular Filtrat Rate mL/min > 60 Glucose Level 122 Calcium Level 7.2 L Phosphorus Level 2.1 L Magnesium Level 1.7 Medications Medication Current Medications IV Flush (NS 3 ml) 3 ml PER PROTOCOL IV ; Start 07/27/18 at 02:00 Ondansetron HCl (Zofran Inj) 4 mg Q6H PRN IV NAUSEA/VOMITING; Start 07/27/18 at 02:00 Acetaminophen (Tylenol Tab) 650 mg Q6H PRN PO .PAIN 1-3 OR TEMP Last administe red on 08/02/18 19:46; Admin Dose 650 MG; Start 07/27/18 at 02:00 Acetaminophen/ Hydrocodone Bitart ([place] (5/325)) 1 tab Q6H PRN PO .MOD PAIN 4- 6 Last administered on 07/28/18 15:23; Admin Dose 1 TAB; Start 07/27/18 at 02:00 Acetaminophen/ Hydrocodone Bitart ([place] (5/325)) 2 tab Q6H PRN PO .SEVERE PAIN 7-10 Last administered on 08/02/18 04:56; Admin Dose 2 TAB; Start 07/27/18 at 02:00 Docusate Sodium (Colace) 100 mg BID PO Last administered on 08/03/18 09:06; Admin Dose 100 MG; Start 07/29/18 at 23:30 Polyethylene Glycol (Miralax) 17 gm DAILY PO Last administered on 08/03/18 09:06; Admin Dose 17 GM; Start 07/30/18 at 09:00 Levalbuterol (Xopenex Neb) 0.63 mg Q6H RESP THERAPY HHN Last administered on 08/03/18 13:37; Admin Dose 0.63 MG; Start 07/30/18 at 14:00 Vancomycin HCl (Vanco Iv Per Pharmacy) VANCOMYCIN PER PHARMACY PER PROTOCOL XX ; Start 07/30/18 at 11:30 IV Flush (NS 10 ml) 10 ml PRN PRN IV IV PROTOCOL; Start 07/30/18 at 16:30 Pantoprazole (Protonix Iv) 40 mg BID@06,18 IV Last administered on 08/03/18 05:18; Admin Dose 40 MG; Start 08/01/18 at 18:00 Vancomycin HCl 250 ml @ 125 mls/hr Q8H IVPB Last administered on 08/03/18 12:13; Admin Dose 125 MLS/HR; Start 08/02/18 at 12:00 Meropenem/Sodium Chloride 50 ml @ 100 mls/hr Q8 IVPB Last administered on 08/03/18 05:17; Admin Dose 100 MLS/HR; Start 08/02/18 at 16:00 Levofloxacin/ Dextrose 100 ml @ 100 mls/hr Q24H IVPB Last administered on 08/02/18 17:12; Admin Dose 100 MLS/HR; Start 08/02/18 at 17:00 Furosemide (Lasix) 40 mg DAILY IV Last administered on 08/03/18 12:17; Admin Dose 40 MG; Start 08/03/18 at 12:00 Sucralfate (Carafate) 1 gm QID PO Last administered on 08/03/18 12:13; Admin Dose 1 GM; Start 08/03/18 at 13:00 Potassium Phosphate 15 mm/ Sodium Chloride 255 ml @ 63.75 mls/ hr ONCE ONCE IVPB ; Start 08/03/18 at 13:30; Stop 08/03/18 at 17:29 Magnesium Sulfate 50 ml @ 25 mls/hr ONCE ONCE IVPB ; Start 08/03/18 at 13:30; Stop 08/03/18 at 15:29 Miscellaneous Information (*Rx Drug Level Order Reminder*) VANC TROUGH 3/9 @ 1,900 ONCE ONCE XX ; Start 08/03/18 at 19:00; Stop 08/03/18 at 19:01 YORDAN HORTON Aug 03, 2018 14:04
[2018-08-03] MEDS: LEVOFLOXACIN 500MG/D5W (PMX) 100 ML IVPB SCH (16:34)
[2018-08-04] VITALS (10 sets, daily range): BP systolic 103–123; BP diastolic 67–80; PULSE 99–110; RESP 18–32
[2018-08-04] MEDS: LEVALBUTEROL (NEB) 0.63 MG/3 ML AMP HHN SCH ×4 (01:33→20:51)
[2018-08-04] MEDS: VANCOMYCIN 1 GM 250 ML IVPB SCH ×3 (06:25→21:29)
[2018-08-04] MEDS: PANTOPRAZOLE 40 MG INJ IV SCH ×2 (06:26→17:04)
[2018-08-04] MEDS: MEROPENEM 1 GM/50ML(PMX) 50 ML IVPB SCH ×3 (06:27→21:28)
[2018-08-04] MEDS: DOCUSATE SODIUM 100 MG CAP PO SCH ×2 (09:00→21:28)
[2018-08-04] MEDS: POLYETHYLENE GLYCOL 17 GM PACKET PO SCH (09:00)
[2018-08-04] MEDS: SUCRALFATE 1 GM TAB PO SCH ×4 (09:05→21:28)
[2018-08-04] MEDS: FUROSEMIDE 40 MG INJ IV SCH (09:05)
--- NOTE | 2018-08-04 10:40 | CONS ---
Assessment/Plan Assessment/Plan Hospital Course (Demo Recall) Interval HX- Awake, alert, resting in bed comfortably, tolerating po well, no acute events overnight, had 3 soft stools last night per nursing staff, WBC slightly elevated, sputum negative. IMPRESSION: 1. Epigastric pain -s/p EGD 07/29 2. Dysphagia to solid food. Rule out malignancy, especially esophageal stricture. 3. Cachexia. 4. Hypertension. 5. History of bronchial asthma. 6. Necrotizing duodenal ulcer 7. Multiple linear esophageal ulcers 8. Gastritis 9. Esophagitis 10 rectal bleeding, resolved PLAN: One unit PRBC for hgb less than 7.0 Regular diet, tolerating well Carafate, PPI, Antiemetics Hold colace and Miralax for loose stools/diarrhea Sputum negative Monitor WBC-CBC, CMP in am Patient examined and plan of care discussed with Dr Lassiter Consultation Date/Type/Reason Admit Date/Time Jul 26, 2018 at 22:49 Initial Consult Date Date/Time of Note DATE: 08/04/18 TIME: 10:36 Exam/Review of Systems Exam Vitals Vital Signs Date Temp Pulse Resp B/P (MAP) Pulse Ox O2 O2 Flow FiO2 Time Delivery Rate 08/04/18 109 08:01 08/04/18 Nasal 2.0 07:41 Cannula 08/04/18 98.0 18 123/78 98 03:44 (93) 08/01/18 21 01:40 Intake and Output 08/03/18 08/03/18 08/04/18 1515:00 23:00 07:00 IntakeIntake Total 960 ml 650 ml OutputOutput Total 3550 ml BalanceBalance -2590 ml 650 ml Constitutional: alert, oriented (cachectic) Psych: no complaints Head: normocephalic, atraumatic Eyes: nl conjunctiva, EOMI ENMT: nl external ears & nose Neck: supple, non-tender Respiratory: clear to auscultation Cardiovascular: regular rate and rhythm Gastrointestinal: soft, non-tender Musculoskeletal: nl extremities to inspection Extremities: normal pulses Neurological: HOSPITAL RECRUITER II-XII intact Results Result Diagram: 08/04/18 0551 08/04/18 0551 Results 24hrs Laboratory Tests Test 08/03/18 19:06 08/04/18 05:51 Vancomycin Level Trough 12.3 White Blood Count 12.6 H Red Blood Count 3.48 #L Hemoglobin 10.0 #L Hematocrit 30.1 #L Mean Corpuscular Volume 86.5 Mean Corpuscular Hemoglobin 28.7 L Mean Corpuscular Hemoglobin Concent 33.2 Red Cell Distribution Width 15.6 H Platelet Count 219 # Mean Platelet Volume 9.6 Immature Granulocytes % 1.300 H Neutrophils % 74.8 Lymphocytes % 11.1 L Monocytes % 11.6 H Eosinophils % 1.0 Basophils % 0.2 Nucleated Red Blood Cells % 0.0 Immature Granulocytes # 0.160 H Neutrophils # 9.4 H Lymphocytes # 1.4 Monocytes # 1.5 H Eosinophils # 0.1 Basophils # 0.0 Nucleated Red Blood Cells # 0.0 Sodium Level 139 Potassium Level 4.0 Chloride Level 100 Carbon Dioxide Level 34 H Anion Gap 5 Blood Urea Nitrogen 11 Creatinine 0.76 Est Glomerular Filtrat Rate mL/min > 60 Glucose Level 218 Calcium Level 8.7 Phosphorus Level 2.2 L Magnesium Level 2.1 Total Bilirubin 0.4 Direct Bilirubin 0.00 Indirect Bilirubin 0.4 Aspartate Amino Transf (AST/SGOT) 36 Alanine Aminotransferase (ALT/SGPT) 34 Alkaline Phosphatase 71 Total Protein 5.5 L Albumin 2.6 L Globulin 2.90 Albumin/Globulin Ratio 0.89 Medications Medication Current Medications IV Flush (NS 3 ml) 3 ml PER PROTOCOL IV ; Start 07/27/18 at 02:00 Ondansetron HCl (Zofran Inj) 4 mg Q6H PRN IV NAUSEA/VOMITING; Start 07/27/18 at 02:00 Acetaminophen (Tylenol Tab) 650 mg Q6H PRN PO .PAIN 1-3 OR TEMP Last administered on 08/02/18at 19:46; Admin Dose 650 MG; Start 07/27/18 at 02:00 Acetaminophen/ Hydrocodone Bitart ([place] (5/325)) 1 tab Q6H PRN PO .MOD PAIN 4- 6 Last administered on 07/28/18at 15:23; Admin Dose 1 TAB; Start 07/27/18 at 02:00 Acetaminophen/ Hydrocodone Bitart ([place] (5/325)) 2 tab Q6H PRN PO .SEVERE PAIN 7-10 Last administered on 08/02/18 04:56; Admin Dose 2 TAB; Start 07/27/18 at 02:00 Docusate Sodium (Colace) 100 mg BID PO Last administered on 08/03/18 20:40; Admin Dose 100 MG; Start 07/29/18 at 23:30 Polyethylene Glycol (Miralax) 17 gm DAILY PO Last administered on 08/03/18 09:06; Admin Dose 17 GM; Start 07/30/18 at 09:00 Levalbuterol (Xopenex Neb) 0.63 mg Q6H RESP THERAPY HHN Last administered on 08/04/18 07:40; Admin Dose 0.63 MG; Start 07/30/18 at 14:00 Vancomycin HCl (Vanco Iv Per Pharmacy) VANCOMYCIN PER PHARMACY PER PROTOCOL XX ; Start 07/30/18 at 11:30 IV Flush (NS 10 ml) 10 ml PRN PRN IV IV PROTOCOL; Start 07/30/18 at 16:30 Pantoprazole (Protonix Iv) 40 mg BID@06,18 IV Last administered on 08/04/18 06:26; Admin Dose 40 MG; Start 08/01/18 at 18:00 Vancomycin HCl 250 ml @ 125 mls/hr Q8H IVPB Last administered on 08/04/18 06:25; Admin Dose 125 MLS/HR; Start 08/02/18 at 12:00 Meropenem/Sodium Chloride 50 ml @ 100 mls/hr Q8 IVPB Last administered on 08/04/18 06:27; Admin Dose 100 MLS/HR; Start 08/02/18 at 16:00 Levofloxacin/ Dextrose 100 ml @ 100 mls/hr Q24H IVPB Last administered on 08/03/18 16:34; Admin Dose 100 MLS/HR; Start 08/02/18 at 17:00 Furosemide (Lasix) 40 mg DAILY IV Last administered on 08/04/18 09:05; Admin Dose 40 MG; Start 08/03/18 at 12:00 Sucralfate (Carafate) 1 gm QID PO Last administered on 08/04/18 09:05; Admin Dose 1 GM; Start 08/03/18 at 13:00 RAMANA DING NP Aug 04, 2018 10:40
--- NOTE | 2018-08-04 10:45 | CONS ---
Consult Date/Type/Reason Admit Date/Time Jul 26, 2018 at 22:49 Initial Consult Date Type of Consult Pulmonary Date/Time of Note DATE: 08/04/18 TIME: 10:43 Subjective Patient states his breathing has improved somewhat today. Objective Vital Signs Date Temp Pulse Resp B/P (MAP) Pulse Ox O2 O2 Flow FiO2 Time Delivery Rate 08/04/18 109 08:01 08/04/18 Nasal 2.0 07:41 Cannula 08/04/18 98.0 18 123/78 98 03:44 (93) 08/01/18 21 01:40 Intake and Output 08/03/18 08/03/18 08/04/18 1515:00 23:00 07:00 IntakeIntake Total 960 ml 650 ml OutputOutput Total 3550 ml BalanceBalance -2590 ml 650 ml Exam Thin older than age appearing -Turkish gentleman GENERAL: VITAL SIGNS: per chart NECK: Supple. No JVD or lymphadenopathy. CARDIAC EXAM: S1, S2. No added sounds or murmurs. CHEST: clear bilaterally, No added sounds, rales or wheezes ABDOMEN: Soft, nontender. No guarding or rebound. EXTREMITIES: No cyanosis, clubbing or edema. NEUROLOGIC: Generalized weakness. No focal deficits. Vent Setting Fraction of Inspired Oxygen pe: 21 Results/Medications Result Diagram: 08/04/18 0551 08/04/18 0551 Results 24 hrs Laboratory Tests Test 08/03/18 19:06 08/04/18 05:51 Vancomycin Level Trough 12.3 White Blood Count 12.6 H Red Blood Count 3.48 #L Hemoglobin 10.0 #L Hematocrit 30.1 #L Mean Corpuscular Volume 86.5 Mean Corpuscular Hemoglobin 28.7 L Mean Corpuscular Hemoglobin Concent 33.2 Red Cell Distribution Width 15.6 H Platelet Count 219 # Mean Platelet Volume 9.6 Immature Granulocytes % 1.300 H Neutrophils % 74.8 Lymphocytes % 11.1 L Monocytes % 11.6 H Eosinophils % 1.0 Basophils % 0.2 Nucleated Red Blood Cells % 0.0 Immature Granulocytes # 0.160 H Neutrophils # 9.4 H Lymphocytes # 1.4 Monocytes # 1.5 H Eosinophils # 0.1 Basophils # 0.0 Nucleated Red Blood Cells # 0.0 Sodium Level 139 Potassium Level 4.0 Chloride Level 100 Carbon Dioxide Level 34 H Anion Gap 5 Blood Urea Nitrogen 11 Creatinine 0.76 Est Glomerular Filtrat Rate mL/min > 60 Glucose Level 218 Calcium Level 8.7 Phosphorus Level 2.2 L Magnesium Level 2.1 Total Bilirubin 0.4 Direct Bilirubin 0.00 Indirect Bilirubin 0.4 Aspartate Amino Transf (AST/SGOT) 36 Alanine Aminotransferase (ALT/SGPT) 34 Alkaline Phosphatase 71 Total Protein 5.5 L Albumin 2.6 L Globulin 2.90 Albumin/Globulin Ratio 0.89 Medications Current Medications IV Flush (NS 3 ml) 3 ml PER PROTOCOL IV ; Start 07/27/18 at 02:00 Ondansetron HCl (Zofran Inj) 4 mg Q6H PRN IV NAUSEA/VOMITING; Start 07/27/18 at 02:00 Acetaminophen (Tylenol Tab) 650 mg Q6H PRN PO .PAIN 1-3 OR TEMP Last administered on 08/02/18 19:46; Admin Dose 650 MG; Start 07/27/18 at 02:00 Acetaminophen/ Hydrocodone Bitart ([place] (5/325)) 1 tab Q6H PRN PO .MOD PAIN 4- 6 Last administered on 07/28/18 15:23; Admin Dose 1 TAB; Start 07/27/18 at 02:00 Acetaminophen/ Hydrocodone Bitart ([place] (5/325)) 2 tab Q6H PRN PO .SEVERE PAIN 7-10 Last administered on 08/02/18 04:56; Admin Dose 2 TAB; Start 07/27/18 at 02:00 Docusate Sodium (Colace) 100 mg BID PO Last administered on 08/03/18 20:40; Admin Dose 100 MG; Start 07/29/18 at 23:30 Polyethylene Glycol (Miralax) 17 gm DAILY PO Last administered on 08/03/18 09:06; Admin Dose 17 GM; Start 07/30/18 at 09:00 Levalbuterol (Xopenex Neb) 0.63 mg Q6H RESP THERAPY HHN Last administered on 08/04/18 07:40; Admin Dose 0.63 MG; Start 07/30/18 at 14:00 Vancomycin HCl (Vanco Iv Per Pharmacy) VANCOMYCIN PER PHARMACY PER PROTOCOL XX ; Start 07/30/18 at 11:30 IV Flush (NS 10 ml) 10 ml PRN PRN IV IV PROTOCOL; Start 07/30/18 at 16:30 Pantoprazole (Protonix Iv) 40 mg BID@06,18 IV Last administered on 08/04/18 06:26; Admin Dose 40 MG; Start 08/01/18 at 18:00 Vancomycin HCl 250 ml @ 125 mls/hr Q8H IVPB Last administered on 08/04/18 06:25; Admin Dose 125 MLS/HR; Start 08/02/18 at 12:00 Meropenem/Sodium Chloride 50 ml @ 100 mls/hr Q8 IVPB Last administered on 08/04/18 06:27; Admin Dose 100 MLS/HR; Start 08/02/18 at 16:00 Levofloxacin/ Dextrose 100 ml @ 100 mls/hr Q24H IVPB Last administered on 08/03/18 16:34; Admin Dose 100 MLS/HR; Start 08/02/18 at 17:00 Furosemide (Lasix) 40 mg DAILY IV Last administered on 08/04/18 09:05; Admin Dose 40 MG; Start 08/03/18 at 12:00 Sucralfate (Carafate) 1 gm QID PO Last administered on 08/04/18 09:05; Admin Dose 1 GM; Start 08/03/18 at 13:00 Assessment/Plan Hospital Course (Demo Recall) Assessment 1. Acute hypoxemic respiratory failure possible aspiration pneumonia 2. Probable component of congestive heart failure 3. Significant cachexia and weight loss concerning for underlying malignancy 4. Anemia status post EGD 5. Questionable component of CHF Plan 1. Decrease O2 as tolerated 2. Radiographic improvement suggest Some improvement with antibiotics 3. Echocardiogram trial of Lasix 4. Repeat x-ray in a.m. Consider transfer to MARYANN Pratt MD, [facility] Aug 04, 2018 10:45
--- NOTE | 2018-08-04 11:44 | CONS ---
Consultation Date/Type/Reason Admit Date/Time Jul 26, 2018 at 22:49 Initial Consult Date SUBJECTIVE: Patient is awake, alert, afebrile. No acute events over night. VS: stable T: 97.1 LABS: Reviewed. WBC-12.6 Microbiology: Blood cultures remain negative LIVE STAIN Final POLYMORPH. LEUKOCYTE 1+ GRAM POSITIVE COCCI NONE SEEN RESPIRATORY CULTURE Final Organism 1 NORMAL RESPIRATORY LILIAM QUANTITY RARE Indwelling: Right upper extremity PICC line Antimicrobials: Vancomycin, Merrem, Levaquin Physical examination: GEN: Well-developed chronically ill-appearing elderly -[place] man who is awake in no distress. HENT: Head atraumatic normocephalic, sclera nonicteric. Neck is supple PULM: chest rise symmetrical breath sounds with scattered crackles. Heart: S1-S2. Abdomen soft bowel sounds present. Assessment: 1. Sepsis with ongoing fevers and leukocytosis, present on admission 2. Bilateral pneumonia likely aspiration 3. Cachexia 4. Anemia Plan: Patient is clinically stable. Pulm and GI recommendations noted. Will continue current antbx treatment. AM labs and CXR Date/Time of Note DATE: 08/04/18 TIME: 11:42 Exam/Review of Systems Exam Vitals Vital Signs Date Temp Pulse Resp B/P (MAP) Pulse Ox O2 O2 Flow FiO2 Time Delivery Rate 08/04/18 97.1 110 32 112/67 95 Nasal 11:28 (82) Cannula 08/04/18 2.0 07:41 08/01/18 21 01:40 Intake and Output 08/03/18 08/03/18 08/04/18 1515:00 23:00 07:00 IntakeIntake Total 960 ml 650 ml OutputOutput Total 3550 ml BalanceBalance -2590 ml 650 ml Results Result Diagram: 08/04/18 0551 08/04/18 0551 Results 24hrs Laboratory Tests Test 08/03/18 19:06 08/04/18 05:51 08/04/18 11:30 Vancomycin Level Trough 12.3 White Blood Count 12.6 H Red Blood Count 3.48 #L Hemoglobin 10.0 #L Hematocrit 30.1 #L Mean Corpuscular Volume 86.5 Mean Corpuscular Hemoglobin 28.7 L Mean Corpuscular 33.2 Hemoglobin Concent Red Cell Distribution Width 15.6 H Platelet Count 219 # Mean Platelet Volume 9.6 Immature Granulocytes % 1.300 H Neutrophils % 74.8 Lymphocytes % 11.1 L Monocytes % 11.6 H Eosinophils % 1.0 Basophils % 0.2 Nucleated Red Blood Cells % 0.0 Immature Granulocytes # 0.160 H Neutrophils # 9.4 H Lymphocytes # 1.4 Monocytes # 1.5 H Eosinophils # 0.1 Basophils # 0.0 Nucleated Red Blood Cells # 0.0 Sodium Level 139 Potassium Level 4.0 Chloride Level 100 Carbon Dioxide Level 34 H Anion Gap 5 Blood Urea Nitrogen 11 Creatinine 0.76 Est Glomerular Filtrat Rate mL/min > 60 Glucose Level 218 Calcium Level 8.7 Phosphorus Level 2.2 L Magnesium Level 2.1 Total Bilirubin 0.4 Direct Bilirubin 0.00 Indirect Bilirubin 0.4 Aspartate Amino Transf (AST/SGOT) 36 Alanine 34 Aminotransferase (ALT/SGPT) Alkaline Phosphatase 71 Total Protein 5.5 L Albumin 2.6 L Globulin 2.90 Albumin/Globulin Ratio 0.89 Lab Scanned Report REFERENCE LAB Medications Medication Current Medications IV Flush (NS 3 ml) 3 ml PER PROTOCOL IV ; Start 07/27/18 at 02:00 Ondansetron HCl (Zofran Inj) 4 mg Q6H PRN IV NAUSEA/VOMITING; Start 07/27/18 at 02:00 Acetaminophen (Tylenol Tab) 650 mg Q6H PRN PO .PAIN 1-3 OR TEMP Last administered on 08/02/18 19:46; Admin Dose 650 MG; Start 07/27/18 at 02:00 Acetaminophen/ Hydrocodone Bitart ([place] (5/325)) 1 tab Q6H PRN PO .MOD PAIN 4- 6 Last administered on 07/28/18 15:23; Admin Dose 1 TAB; Start 07/27/18 at 02:00 Acetaminophen/ Hydrocodone Bitart ([place] (5/325)) 2 tab Q6H PRN PO .SEVERE PAIN 7-10 Last administered on 08/02/18 04:56; Admin Dose 2 TAB; Start 07/27/18 at 02:00 Docusate Sodium (Colace) 100 mg BID PO Last administered on 08/03/18 20:40; Admin Dose 100 MG; Start 07/29/18 at 23:30 Polyethylene Glycol (Miralax) 17 gm DAILY PO Last administered on 08/03/18 09:06; Admin Dose 17 GM; Start 07/30/18 at 09:00 Levalbuterol (Xopenex Neb) 0.63 mg Q6H RESP THERAPY HHN Last administered on 08/04/18at 07:40; Admin Dose 0.63 MG; Start 07/30/18 at 14:00 Vancomycin HCl (Vanco Iv Per Pharmacy) VANCOMYCIN PER PHARMACY PER PROTOCOL XX ; Start 07/30/18 at 11:30 IV Flush (NS 10 ml) 10 ml PRN PRN IV IV PROTOCOL; Start 07/30/18 at 16:30 Pantoprazole (Protonix Iv) 40 mg BID@06,18 IV Last administered on 08/04/18 06:26; Admin Dose 40 MG; Start 08/01/18 at 18:00 Vancomycin HCl 250 ml @ 125 mls/hr Q8H IVPB Last administered on 08/04/18 06:25; Admin Dose 125 MLS/HR; Start 08/02/18 at 12:00 Meropenem/Sodium Chloride 50 ml @ 100 mls/hr Q8 IVPB Last administered on 08/04/18 06:27; Admin Dose 100 MLS/HR; Start 08/02/18 at 16:00 Levofloxacin/ Dextrose 100 ml @ 100 mls/hr Q24H IVPB Last administered on 08/03/18 16:34; Admin Dose 100 MLS/HR; Start 08/02/18 at 17:00 Furosemide (Lasix) 40 mg DAILY IV Last administered on 08/04/18 09:05; Admin Dose 40 MG; Start 08/03/18 at 12:00 Sucralfate (Carafate) 1 gm QID PO Last administered on 08/04/18 09:05; Admin Dose 1 GM; Start 08/03/18 at 13:00 YORDAN HORTON Aug 04, 2018 11:44
--- NOTE | 2018-08-04 12:36 | PN ---
Date/Time of Note Date/Time of Note DATE: 08/04/18 TIME: 12:35 Assessment/Plan VTE Prophylaxis Risk score (from Ns)>0 risk: 4 [place]CD applied [place]from [facility] [place] No SCD contraindicated: other Pharmacological prophylaxis: NA/contraindicated Pharm contraindication: anticoag not tolerated Lines/Catheters IV Catheter Type (from [facility]): PICC Line Central line still needed: Yes Urinary Cath still in place: No Assessment/Plan Hospital Course SUBJECTIVE: Denies any abdominal pain at this time. No more episodes of melena. OBJECTIVE: Physical Exam General: Thin, frail looking, 63 year-old male lying in bed in no apparent distress. HEENT: Normocephalic, atraumatic. Eyes: Anicteric sclerae, conjunctivae clear. ENT: Nasal septum midline, oral mucosa moist. Neck supple, no JVD noticed. Respiratory: Bilaterally diminished breath sounds. No use of accessory muscles of respiration. Cardiovascular: S1, S2 heard. Regular rate and rhythm. Abdomen: Soft and scaphoid. Nontender, and nondistended. Bowel sounds positive in all 4 quadrants. Genitourinary: Deferred. Extremities: No cyanosis, no clubbing, no edema. Peripheral pulses palpable. Neurologic: Cranial nerves II through XII grossly intact. The patient is awake, alert, and oriented. Skin: Normal skin turgor. No skin rashes. Labs & Vitals per chart ASSESSMENT & PLAN 63-year-old male with past medical history of hypertension, asthma, dyslipidemia, and pancreatitis who came to the emergency room with epigastric pain and unintentional weight loss with the CT scan showing contracted gallbladder wall with possible wall thickening and some fluid adjacent to the gallbladder and duodenum with small 9 mm dense or enhancing focus adjacent to the gallbladder. The patient was admitted to inpatient setting for further treatment and evaluation. The patient was initially on the medical surgical floor. The patient was moved to intensive care unit on 07/30/2018 after a rapid response was called because of significant gastrointestinal bleeding with resultant hypotension. 1. Epigastric pain. -Etiology unclear. -Gallbladder ultrasound negative for any gallstones. LFTs within normal limits. -Being followed by gastroenterology. -Status post esophagogastroduodenoscopy on 07/29/2018 that showed necrotizing duodenal ulcer, gastritis, multiple esophageal ulcers, and esophagitis. -Status post post colonoscopy on status post colonoscopy on 08/01/2018 that showed colonic diverticulosis. -Continue PPI and Carafate. 2. Dysphagia to solid foods. -Being followed by gastroenterology. -Status post esophagogastroduodenoscopy on 07/29/2018 that showed esophagitis and esophageal ulcers. -Currently on mechanical soft diet. 3. Melena with hypotension episode on 07/30/2018. -The patient was moved to intensive care unit after rapid response. -S/P Levophed drip. -Being followed by gastroenterology. 4. Anemia of acute blood loss. -Transfuse blood products as needed. 5. Shock on 07/30/2018. -Most probably hypovolemic shock secondary to acute blood loss. -S/P IV pressors. 6. Sepsis with septic shock on 07/30/2018. -Etiology could be multifocal pneumonia, possible aspiration. -Continue antimicrobials including coverage for anaerobes. -ID following. 7. Acute respiratory failure. -Hypoxic -Etiology unclear. -Continue supplemental oxygen and inhaled bronchodilators. -Pulmonary evaluation. 8. History of dyslipidemia. -Fasting lipid panel satisfactory. 9. Severe protein calorie malnutrition. -Being evaluated for any underlying malignancy. -Dietary consult. 10. Fluids, electrolytes, and nutrition. -Regular diet. 11. DVT prophylaxis -B/L SCDs. -No heparin because of bleeding. 12. Plan. -Continue PPI. -Monitor serial H&H. -Transfuse blood products as needed. -Continue antimicrobials. -Transfer the patient to Med/Surg. -PT evaluation. On 08/02/2018, asked the patient about his wishes in case if he becomes incapacitated. The patient wants to remain a full code and wants to do all everything possible to keep him alive. The patient does not have any surrogate decision makers including any family members, friends, or significant others. The conversation was witnessed by the patient's primary RN. The patient was seen in collaboration with Dr. Dickinson. Result Diagram: 08/04/18 0551 08/04/18 0551 Results 24hrs Laboratory Tests Test 08/03/18 19:06 08/04/18 05:51 08/04/18 11:30 Vancomycin Level Trough 12.3 White Blood Count 12.6 H Red Blood Count 3.48 #L Hemoglobin 10.0 #L Hematocrit 30.1 #L Mean Corpuscular Volume 86.5 Mean Corpuscular Hemoglobin 28.7 L Mean Corpuscular 33.2 Hemoglobin Concent Red Cell Distribution Width 15.6 H Platelet Count 219 # Mean Platelet Volume 9.6 Immature Granulocytes % 1.300 H Neutrophils % 74.8 Lymphocytes % 11.1 L Monocytes % 11.6 H Eosinophils % 1.0 Basophils % 0.2 Nucleated Red Blood Cells % 0.0 Immature Granulocytes # 0.160 H Neutrophils # 9.4 H Lymphocytes # 1.4 Monocytes # 1.5 H Eosinophils # 0.1 Basophils # 0.0 Nucleated Red Blood Cells # 0.0 Sodium Level 139 Potassium Level 4.0 Chloride Level 100 Carbon Dioxide Level 34 H Anion Gap 5 Blood Urea Nitrogen 11 Creatinine 0.76 Est Glomerular Filtrat Rate mL/min > 60 Glucose Level 218 Calcium Level 8.7 Phosphorus Level 2.2 L Magnesium Level 2.1 Total Bilirubin 0.4 Direct Bilirubin 0.00 Indirect Bilirubin 0.4 Aspartate Amino Transf (AST/SGOT) 36 Alanine 34 Aminotransferase (ALT/SGPT) Alkaline Phosphatase 71 Total Protein 5.5 L Albumin 2.6 L Globulin 2.90 Albumin/Globulin Ratio 0.89 Lab Scanned Report REFERENCE LAB Exam/Review of Systems Exam Vitals Vital Signs Date Temp Pulse Resp B/P (MAP) Pulse Ox O2 O2 Flow FiO2 Time Delivery Rate 08/04/18 97.1 110 32 112/67 95 Nasal 11:28 (82) Cannula 08/04/18 2.0 07:41 08/01/18 21 01:40 Intake and Output 08/03/18 08/03/18 08/04/18 1515:00 23:00 07:00 IntakeIntake Total 960 ml 650 ml OutputOutput Total 3550 ml BalanceBalance -2590 ml 650 ml Results Results 24hrs Laboratory Tests Test 08/03/18 19:06 08/04/18 05:51 08/04/18 11:30 Vancomycin Level Trough 12.3 White Blood Count 12.6 H Red Blood Count 3.48 #L Hemoglobin 10.0 #L Hematocrit 30.1 #L Mean Corpuscular Volume 86.5 Mean Corpuscular Hemoglobin 28.7 L Mean Corpuscular 33.2 Hemoglobin Concent Red Cell Distribution Width 15.6 H Platelet Count 219 # Mean Platelet Volume 9.6 Immature Granulocytes % 1.300 H Neutrophils % 74.8 Lymphocytes % 11.1 L Monocytes % 11.6 H Eosinophils % 1.0 Basophils % 0.2 Nucleated Red Blood Cells % 0.0 Immature Granulocytes # 0.160 H Neutrophils # 9.4 H Lymphocytes # 1.4 Monocytes # 1.5 H Eosinophils # 0.1 Basophils # 0.0 Nucleated Red Blood Cells # 0.0 Sodium Level 139 Potassium Level 4.0 Chloride Level 100 Carbon Dioxide Level 34 H Anion Gap 5 Blood Urea Nitrogen 11 Creatinine 0.76 Est Glomerular Filtrat Rate mL/min > 60 Glucose Level 218 Calcium Level 8.7 Phosphorus Level 2.2 L Magnesium Level 2.1 Total Bilirubin 0.4 Direct Bilirubin 0.00 Indirect Bilirubin 0.4 Aspartate Amino Transf (AST/SGOT) 36 Alanine 34 Aminotransferase (ALT/SGPT) Alkaline Phosphatase 71 Total Protein 5.5 L Albumin 2.6 L Globulin 2.90 Albumin/Globulin Ratio 0.89 Lab Scanned Report REFERENCE LAB Medications Medication Current Medications IV Flush (NS 3 ml) 3 ml PER PROTOCOL IV ; Start 07/27/18 at 02:00 Ondansetron HCl (Zofran Inj) 4 mg Q6H PRN IV NAUSEA/VOMITING; Start 07/27/18 at 02:00 Acetaminophen (Tylenol Tab) 650 mg Q6H PRN PO .PAIN 1-3 OR TEMP Last administered on 08/02/18 19:46; Admin Dose 650 MG; Start 07/27/18 at 02:00 Acetaminophen/ Hydrocodone Bitart ([place] (5/325)) 1 tab Q6H PRN PO .MOD PAIN 4- 6 Last administered on 07/28/18 15:23; Admin Dose 1 TAB; Start 07/27/18 at 02:00 Acetaminophen/ Hydrocodone Bitart ([place] (5/325)) 2 tab Q6H PRN PO .SEVERE PAIN 7-10 Last administered on 08/02/18 04:56; Admin Dose 2 TAB; Start 07/27/18 at 02:00 Docusate Sodium (Colace) 100 mg BID PO Last administered on 08/03/18 20:40; Admin Dose 100 MG; Start 07/29/18 at 23:30 Polyethylene Glycol (Miralax) 17 gm DAILY PO Last administered on 08/03/18 09:06; Admin Dose 17 GM; Start 07/30/18 at 09:00 Levalbuterol (Xopenex Neb) 0.63 mg Q6H RESP THERAPY HHN Last administered on 08/04/18 07:40; Admin Dose 0.63 MG; Start 07/30/18 at 14:00 Vancomycin HCl (Vanco Iv Per Pharmacy) VANCOMYCIN PER PHARMACY PER PROTOCOL XX ; Start 07/30/18 at 11:30 IV Flush (NS 10 ml) 10 ml PRN PRN IV IV PROTOCOL; Start 07/30/18 at 16:30 Pantoprazole (Protonix Iv) 40 mg BID@06,18 IV Last administered on 08/04/18 06:26; Admin Dose 40 MG; Start 08/01/18 at 18:00 Vancomycin HCl 250 ml @ 125 mls/hr Q8H IVPB Last administered on 08/04/18 06:25; Admin Dose 125 MLS/HR; Start 08/02/18 at 12:00 Meropenem/Sodium Chloride 50 ml @ 100 mls/hr Q8 IVPB Last administered on 08/04/18 06:27; Admin Dose 100 MLS/HR; Start 08/02/18 at 16:00 Levofloxacin/ Dextrose 100 ml @ 100 mls/hr Q24H IVPB Last administered on 08/03/18at 16:34; Admin Dose 100 MLS/HR; Start 08/02/18 at 17:00 Furosemide (Lasix) 40 mg DAILY IV Last administered on 08/04/18 09:05; Admin Dose 40 MG; Start 08/03/18 at 12:00 Sucralfate (Carafate) 1 gm QID PO Last administered on 08/04/18 09:05; Admin Dose 1 GM; Start 08/03/18 at 13:00 RADHA LI NP Aug 04, 2018 12:36
--- NOTE | 2018-08-04 16:59 | RADRPT ---
Echocardiogram Report Patient Name: CHARLOTTE CAMPOVERDEPatient ID: [id number] : 1955 (63y 5m)Study Date: 08/03/2018 1:42:14 PM Gender: MAccession #: [id number] Tech: TREVON Location: Ref.Physician: MARYANN SEGOVIA Height(Cm): BSA: Weight(Kg): Quality: GoodAccount #: Procedures: Echocardiographic Report: Transthoracic echocardiogram with complete 2D, M-Mode, and doppler examination. Indications: Congestive Heart Failure. Measurements: 2D/M Mode Doppler Measurement Value Normal Range Measurement Value Normal Range LVIDd 2D 3.9 [ 4.2 - 5.8 ] cm SHAE Vmax 3.0 [ 2.0 - 4.0 ] cm2 LVIDs 2D 2.7 [ 2.5 - 4.0 ] cm AV Mean Dameon 0.9 [ 70.0 - 90.0 ] cm/sec LVPWd 2D 1.1 [ 0.6 - 1.0 ] cm AV Mean PG 4.0 [ 2.0 - 4.0 ] mmHg IVSd 2D 1.1 [ 0.6 - 1.0 ] cm AV Peak Dameon 1.2 [ 100.0 - 170.0 ] cm/sec IVS/LVPW 2D 1.0 ratio AV Peak PG 6.0 [ 2.0 - 9.0 ] mmHg LVOT Diam 2.1 [ 2.3 - 2.9 ] cm AV VTI 20.3 cm LVOT Area 3.5 cm2 LVOT Peak Dameon 1.0 [ 70.0 - 110.0 ] cm/sec LVOT Peak PG 4.0 [ 2.0 - 6.0 ] mmHg MV E Peak Dameon 0.5 [ 60.0 - 130.0 ] cm/sec MV A Peak Dameon 0.8 [ 100.0 - 120.0 ] cm/sec MV E/A 0.6 [ 0.8 - 1.5 ] ratio MV Decel Time 187 [ 104 - 258 ] msec Lat E` Dameon 0.1 [ 10.0 - 15.0 ] cm/sec Med E` Dameon 0.1 cm/sec MV E/A 0.6 [ 0.8 - 1.5 ] ratio TR Peak Dameon 3.0 [ 100.0 - 280.0 ] cm/sec TR Peak PG 37.0 mmHg PV Peak Dameon 0.9 [ 40.0 - 80.0 ] cm/sec PV Peak PG 3.0 mmHg Findings: Left Ventricle: Normal left ventricular systolic function. Normal left ventricular cavity size. Normal left ventricular wall thickness. Ejection fraction is visually estimated at 70 %. Tissue Doppler/Mitral Doppler indices are consistent with impaired relaxation (Stage I diastolic dysfunction). Right Ventricle: Normal right ventricular size. Normal right ventricular systolic function. Left Atrium: The left atrium is normal in size. Right Atrium: The right atrium is normal in size. Mitral Valve: Normal appearance of the mitral valve. Trace mitral regurgitation. Aortic Valve: Normal appearance of the aortic valve. No significant aortic stenosis or insufficiency. Tricuspid Valve: Normal appearance of the tricuspid valve. Right ventricular systolic pressure is consistent with mild pulmonary hypertension. Estimated peak PA systolic pressure 40 mmHg. There is mild tricuspid regurgitation. Pulmonic Valve: Normal pulmonic valve appearance. Pericardium: Normal pericardium with no significant pericardial effusion. Aorta: Normal aortic root. IVC: Normal size and normal respiratory collapse consistent with normal right atrial pressure. Conclusions: Normal left ventricular systolic function. Normal left ventricular cavity size. Normal left ventricular wall thickness. Ejection fraction is visually estimated at 70 %. Tissue Doppler/Mitral Doppler indices are consistent with impaired relaxation (Stage I diastolic dysfunction). No significant valvular stenosis or regurgitation seen. Estimated peak PA systolic pressure 40 mmHg. Normal size and normal respiratory collapse consistent with normal right atrial pressure. Electronically Signed By: Jm Snider 2018-08-04 16:57:50 PDT
[2018-08-04] MEDS: LEVOFLOXACIN 500MG/D5W (PMX) 100 ML IVPB SCH (17:04)
[2018-08-05 02:52] VITALS: BP 136/87; PULSE 106; RESP 18
[2018-08-05] MEDS: LEVALBUTEROL (NEB) 0.63 MG/3 ML AMP HHN SCH ×3 (03:17→16:27)
[2018-08-05] MEDS: VANCOMYCIN 1 GM 250 ML IVPB SCH ×2 (04:05→11:55)
[2018-08-05] MEDS: PANTOPRAZOLE 40 MG INJ IV SCH (05:33)
[2018-08-05] MEDS: MEROPENEM 1 GM/50ML(PMX) 50 ML IVPB SCH ×3 (05:34→21:00)
[2018-08-05 07:20] VITALS: BP 106/55; PULSE 96; RESP 18
[2018-08-05] MEDS: POLYETHYLENE GLYCOL 17 GM PACKET PO SCH (08:34)
[2018-08-05] MEDS: SUCRALFATE 1 GM TAB PO SCH ×4 (08:34→21:00)
[2018-08-05] MEDS: DOCUSATE SODIUM 100 MG CAP PO SCH (08:34)
[2018-08-05] MEDS: FUROSEMIDE 40 MG INJ IV SCH (08:35)
--- NOTE | 2018-08-05 09:34 | CONS ---
Assessment/Plan Assessment/Plan Assessment/Plan (Daily) Assessment and recommendations; 1. Patient admitted with bilateral community acquired pneumonia with significant clinical and radiological improvement. 2. Dysphagia with interval improvement. Etiology is unclear. 3. Anemia. 4. Improving thrombocytopenia. 5. Significant weight loss recently, etiology is unclear. Continue current supportive care. Obtain follow-up chest x-ray. Further jair mmendations once chest x-ray is obtained. Consultation Date/Type/Reason Admit Date/Time Jul 26, 2018 at 22:49 Initial Consult Date Type of Consult Pulmonary Patient's condition is significantly improved over the last 24 hours. Has been transferred out of ICU to medical floor. He denies any fever, chest pain, coughing, shortness of breath. General exam; elderly male, awake alert, currently no distress. Appears quite emaciated. Date/Time of Note DATE: 08/05/18 TIME: 09:32 24 HR Interval Summary Free Text/Dictation Patient's condition is stable. Remains awake and alert. Denies any shortness of breath, coughing, chest pain any sputum production. Dysphagia is improving. General exam; elderly male, awake alert, currently no distress. Exam/Review of Systems Exam Vitals Vital Signs Date Temp Pulse Resp B/P (MAP) Pulse Ox O2 O2 Flow FiO2 Time Delivery Rate 08/05/18 99.3 96 18 106/55 94 Room Air 07:20 (72) 08/05/18 2.0 03:20 08/04/18 27 20:55 Intake and Output 08/04/18 08/04/18 08/05/18 1414:59 22:59 06:59 IntakeIntake Total 650 ml 1000 ml 600 ml OutputOutput Total 850 ml 3400 ml 1250 ml BalanceBalance -200 ml -2400 ml -650 ml Exam HEENT exam; supple neck, no JVD. No lymphadenopathy. Midline trachea. No thyromegaly. Pharynx is clear. No neck masses. Chest exam; clear to auscultation. S1-S2 audible, no murmurs. Regular rhythm. Abdomen exam; soft, scaphoid. Nontender. No organomegaly. Bowel sounds audible. Extremity exam; no peripheral edema clubbing. FIELD IDENTIFICATION SPECIALIST exam; no focal deficit. Results Result Diagram: 08/05/18 04408/05/18440 Results 24hrs Laboratory Tests Test 08/04/18 11:30 08/04/18 12:39 08/04/18 12:47 08/05/18 04:41 Lab Scanned REFERENCE LAB REFERENCE LAB REFERENCE LAB Report White Blood 10.5 Count Red Blood Count 3.32 L Hemoglobin 9.5 L Hematocrit 28.5 L Mean 85.8 Corpuscular Volume Mean 28.6 L Corpuscular Hemoglobin Mean 33.3 Corpuscular Hemoglobin Conc ent Red Cell 15.3 H Distribution Width Platelet Count 268 # Mean Platelet 9.8 Volume Immature 2.000 H Granulocytes % Neutrophils % 72.0 Lymphocytes % 14.7 L Monocytes % 9.8 Eosinophils % 1.3 Basophils % 0.2 Nucleated Red 0.0 Blood Cells % Immature 0.210 H Granulocytes # Neutrophils # 7.6 H Lymphocytes # 1.5 Monocytes # 1.0 H Eosinophils # 0.1 Basophils # 0.0 Nucleated Red 0.0 Blood Cells # Sodium Level 138 Potassium Level 3.6 Chloride Level 100 Carbon Dioxide 31 Level Anion Gap 7 Blood Urea 10 Nitrogen Creatinine 0.69 Est Glomerular > 60 Filtrat Rate mL/min Glucose Level 157 Calcium Level 8.7 Phosphorus 2.7 Level Magnesium Level 2.0 Medications Medication Current Medications IV Flush (NS 3 ml) 3 ml PER PROTOCOL IV ; Start 07/27/18 at 02:00 Ondansetron HCl (Zofran Inj) 4 mg Q6H PRN IV NAUSEA/VOMITING; Start 07/27/18 at 02:00 Acetaminophen (Tylenol Tab) 650 mg Q6H PRN PO .PAIN 1-3 OR TEMP Last administered on 08/02/18 19:46; Admin Dose 650 MG; Start 07/27/18 at 02:00 Acetaminophen/ Hydrocodone Bitart ([place] (5/325)) 1 tab Q6H PRN PO .MOD PAIN 4- 6 Last administered on 07/28/18 15:23; Admin Dose 1 TAB; Start 07/27/18 at 02:00 Acetaminophen/ Hydrocodone Bitart ([place] (5/325)) 2 tab Q6H PRN PO .SEVERE PAIN 7-10 Last administered on 08/02/18 04:56; Admin Dose 2 TAB; Start 07/27/18 at 02:00 Docusate Sodium (Colace) 100 mg BID PO Last administered on 08/05/18 08:34; Admin Dose 100 MG; Start 07/29/18 at 23:30 Polyethylene Glycol (Miralax) 17 gm DAILY PO Last administered on 08/05/18 08:34; Admin Dose 17 GM; Start 07/30/18 at 09:00 Levalbuterol (Xopenex Neb) 0.63 mg Q6H RESP THERAPY HHN Last administered on 08/05/18 03:17; Admin Dose 0.63 MG; Start 07/30/18 at 14:00 Vancomycin HCl (Vanco Iv Per Pharmacy) VANCOMYCIN PER PHARMACY PER PROTOCOL XX ; Start 07/30/18 at 11:30 IV Flush (NS 10 ml) 10 ml PRN PRN IV IV PROTOCOL; Start 07/30/18 at 16:30 Pantoprazole (Protonix Iv) 40 mg BID@06,18 IV Last administered on 08/05/18 05:33; Admin Dose 40 MG; Start 08/01/18 at 18:00 Vancomycin HCl 250 ml @ 125 mls/hr Q8H IVPB Last administered on 08/05/18 04:05; Admin Dose 125 MLS/HR; Start 08/02/18 at 12:00 Meropenem/Sodium Chloride 50 ml @ 100 mls/hr Q8 IVPB Last administered on 08/05/18 05:34; Admin Dose 100 MLS/HR; Start 08/02/18 at 16:00 Levofloxacin/ Dextrose 100 ml @ 100 mls/hr Q24H IVPB Last administered on 08/04/18 17:04; Admin Dose 100 MLS/HR; Start 08/02/18 at 17:00 Furosemide (Lasix) 40 mg DAILY IV Last administered on 08/05/18 08:35; Admin Dose 40 MG; Start 08/03/18 at 12:00 Sucralfate (Carafate) 1 gm QID PO Last administered on 08/05/18 08:34; Admin Dose 1 GM; Start 08/03/18 at 13:00 MARIANNE FERNÁNDEZ Aug 05, 2018 09:34
--- NOTE | 2018-08-05 12:47 | CONS ---
Assessment/Plan Assessment/Plan Hospital Course (Demo Recall) Patient is alert and feels much better no fevers overnight no shortness of breath WBC today 10.5 neutrophils 72 BUN 10 creatinine 0.69 Microbiology: Blood cultures remain negative, MRSA neg Indwelling: Right upper extremity PICC line Antimicrobials: Vancomycin, Merrem Levaquin Physical examination: Well-developed chronically ill-appearing elderly - [place] man who is awake in no distress. Head atraumatic normocephalic sclera nonicteric. Neck is supple chest rise symmetrical breath sounds with scattered crackles. Heart: S1-S2. Abdomen soft bowel sounds present. Assessment: 1. Sepsis, resolving 2. Bilateral pneumonia likely aspiration 3. Cachexia 4. Anemia Plan: Slowly improving, DC vancomycin continue on current antibiotics, anticipate discharge on oral Levaquin to complete 2 weeks total antibiotics Consultation Date/Type/Reason Admit Date/Time Jul 26, 2018 at 22:49 Initial Consult Date Type of Consult id Date/Time of Note DATE: 08/05/18 TIME: 12:45 Exam/Review of Systems Exam Vitals Vital Signs Date Temp Pulse Resp B/P (MAP) Pulse Ox O2 O2 Flow FiO2 Time Delivery Rate 08/05/18 99.3 96 18 106/55 94 Room Air 07:20 (72) 08/05/18 2.0 03:20 08/04/18 27 20:55 Intake and Output 08/04/18 08/04/18 08/05/18 1515:00 23:00 07:00 IntakeIntake Total 650 ml 1000 ml 600 ml OutputOutput Total 850 ml 3400 ml 1250 ml BalanceBalance -200 ml -2400 ml -650 ml Results Result Diagram: 08/05/18 0441 08/05/18 0441 Results 24hrs Laboratory Tests Test 08/04/18 12:47 08/05/18 04:41 Lab Scanned Report REFERENCE LAB White Blood Count 10.5 Red Blood Count 3.32 L Hemoglobin 9.5 L Hematocrit 28.5 L Mean Corpuscular Volume 85.8 Mean Corpuscular Hemoglobin 28.6 L Mean Corpuscular Hemoglobin Concent 33.3 Red Cell Distribution Width 15.3 H Platelet Count 268 # Mean Platelet Volume 9.8 Immature Granulocytes % 2.000 H Neutrophils % 72.0 Lymphocytes % 14.7 L Monocytes % 9.8 Eosinophils % 1.3 Basophils % 0.2 Nucleated Red Blood Cells % 0.0 Immature Granulocytes # 0.210 H Neutrophils # 7.6 H Lymphocytes # 1.5 Monocytes # 1.0 H Eosinophils # 0.1 Basophils # 0.0 Nucleated Red Blood Cells # 0.0 Sodium Level 138 Potassium Level 3.6 Chloride Level 100 Carbon Dioxide Level 31 Anion Gap 7 Blood Urea Nitrogen 10 Creatinine 0.69 Est Glomerular Filtrat Rate mL/min > 60 Glucose Level 157 Calcium Level 8.7 Phosphorus Level 2.7 Magnesium Level 2.0 Medications Medication Current Medications IV Flush (NS 3 ml) 3 ml PER PROTOCOL IV ; Start 07/27/18 at 02:00 Ondansetron HCl (Zofran Inj) 4 mg Q6H PRN IV NAUSEA/VOMITING; Start 07/27/18 at 02:00 Acetaminophen (Tylenol Tab) 650 mg Q6H PRN PO .PAIN 1-3 OR TEMP Last administered on 08/02/18 19:46; Admin Dose 650 MG; Start 07/27/18 at 02:00 Acetaminophen/ Hydrocodone Bitart ([place] (5/325)) 1 tab Q6H PRN PO .MOD PAIN 4- 6 Last administered on 07/28/18 15:23; Admin Dose 1 TAB; Start 07/27/18 at 02:00 Acetaminophen/ Hydrocodone Bitart ([place] (5/325)) 2 tab Q6H PRN PO .SEVERE PAIN 7-10 Last administered on 08/02/18 04:56; Admin Dose 2 TAB; Start 07/27/18 at 02:00 Docusate Sodium (Colace) 100 mg BID PO Last administered on 08/05/18 08:34; Admin Dose 100 MG; Start 07/29/18 at 23:30 Polyethylene Glycol (Miralax) 17 gm DAILY PO Last administered on 08/05/18 08:34; Admin Dose 17 GM; Start 07/30/18 at 09:00 Levalbuterol (Xopenex Neb) 0.63 mg Q6H RESP THERAPY HHN Last administered on 08/05/18 10:22; Admin Dose 0.63 MG; Start 07/30/18 at 14:00 Vancomycin HCl (Vanco Iv Per Pharmacy) VANCOMYCIN PER PHARMACY PER PROTOCOL XX ; Start 07/30/18 at 11:30 IV Flush (NS 10 ml) 10 ml PRN PRN IV IV PROTOCOL; Start 07/30/18 at 16:30 Pantoprazole (Protonix Iv) 40 mg BID@06,18 IV Last administered on 08/05/18at 05:33; Admin Dose 40 MG; Start 08/01/18 at 18:00 Vancomycin HCl 250 ml @ 125 mls/hr Q8H IVPB Last administered on 08/05/18 11: 55; Admin Dose 125 MLS/HR; Start 08/02/18 at 12:00 Meropenem/Sodium Chloride 50 ml @ 100 mls/hr Q8 IVPB Last administered on 08/05/18 05:34; Admin Dose 100 MLS/HR; Start 08/02/18 at 16:00 Levofloxacin/ Dextrose 100 ml @ 100 mls/hr Q24H IVPB Last administered on 08/04/18at 17:04; Admin Dose 100 MLS/HR; Start 08/02/18 at 17:00 Furosemide (Lasix) 40 mg DAILY IV Last administered on 08/05/18 08:35; Admin Dose 40 MG; Start 08/03/18 at 12:00 Sucralfate (Carafate) 1 gm QID PO Last administered on 08/05/18 12:04; Admin Dose 1 GM; Start 08/03/18 at 13:00 AMANDA KLEIN NP Aug 05, 2018 12:47
[2018-08-05 14:40] VITALS: BP 105/68; PULSE 105; RESP 16
--- NOTE | 2018-08-05 15:49 | PN ---
Date/Time of Note Date/Time of Note DATE: 08/05/18 TIME: 15:45 Assessment/Plan VTE Prophylaxis Risk score (from [facility] [place])>0 risk: 6 SCD applied (from [facility] [place]): No SCD contraindicated: low risk/ambulating Pharmacological prophylaxis: NA/contraindicated Pharm contraindication: bleeding Lines/Catheters IV Catheter Type (from [place]): PICC Line Central line still needed: Yes Urinary Cath still in place: No Assessment/Plan Hospital Course Hospitalist coverage A/P 1. PUD, sp egd/ bx. Stable monitor/ PPI. 2. Chr pancreatitis? Due to alcoholism vs stones? 3. Past alcoholism. 4. Weight loss. s/p colonoscopy. 5. Chr C viremia. No mass on ultrasound. Check alpha-fetoprotein. 6. Dysphagia mostly to solids- esophagitis related? 7. Anemia/ ABL 8. Resolved Sepsis 9. Resolved Asp pneumonia; finish atb 10. Ftt; needs parole meeting? home/ snf soon S: 3/2 subacute pain, w wt loss. Bilat abd, sharp pain to back. Worse lying down or at night. No relieving factors. No fever diarrhea constipation or Gi b. No fever dyspnea. Early satiety vs loss of appetite? 07/28: No distress 08/05: no distress; some cough O: Vital signs stable PE No pallor. Positive bitemporal wasting Regno m/r/g Bs+ nontender nondistended no r/r/g No edema Result Diagram: 08/05/18 0441 08/05/18 0441 Results 24hrs Laboratory Tests Test 08/05/18 04:41 White Blood Count 10.5 Red Blood Count 3.32 L Hemoglobin 9.5 L Hematocrit 28.5 L Mean Corpuscular Volume 85.8 Mean Corpuscular Hemoglobin 28.6 L Mean Corpuscular Hemoglobin Concent 33.3 Red Cell Distribution Width 15.3 H Platelet Count 268 # Mean Platelet Volume 9.8 Immature Granulocytes % 2.000 H Neutrophils % 72.0 Lymphocytes % 14.7 L Monocytes % 9.8 Eosinophils % 1.3 Basophils % 0.2 Nucleated Red Blood Cells % 0.0 Immature Granulocytes # 0.210 H Neutrophils # 7.6 H Lymphocytes # 1.5 Monocytes # 1.0 H Eosinophils # 0.1 Basophils # 0.0 Nucleated Red Blood Cells # 0.0 Sodium Level 138 Potassium Level 3.6 Chloride Level 100 Carbon Dioxide Level 31 Anion Gap 7 Blood Urea Nitrogen 10 Creatinine 0.69 Est Glomerular Filtrat Rate mL/min > 60 Glucose Level 157 Calcium Level 8.7 Phosphorus Level 2.7 Magnesium Level 2.0 Exam/Review of Systems Exam Vitals Vital Signs Date Temp Pulse Resp B/P (MAP) Pulse Ox O2 O2 Flow FiO2 Time Delivery Rate 08/05/18 98.1 105 16 105/68 95 Room Air 14:40 (80) 08/05/18 2.0 03:20 08/04/18 27 20:55 Intake and Output 08/04/18 08/04/18 08/05/18 1515:00 23:00 07:00 IntakeIntake Total 650 ml 1000 ml 600 ml OutputOutput Total 850 ml 3400 ml 1250 ml BalanceBalance -200 ml -2400 ml -650 ml Results Results 24hrs Laboratory Tests Test 08/05/18 04:41 White Blood Count 10.5 Red Blood Count 3.32 L Hemoglobin 9.5 L Hematocrit 28.5 L Mean Corpuscular Volume 85.8 Mean Corpuscular Hemoglobin 28.6 L Mean Corpuscular Hemoglobin Concent 33.3 Red Cell Distribution Width 15.3 H Platelet Count 268 # Mean Platelet Volume 9.8 Immature Granulocytes % 2.000 H Neutrophils % 72.0 Lymphocytes % 14.7 L Monocytes % 9.8 Eosinophils % 1.3 Basophils % 0.2 Nucleated Red Blood Cells % 0.0 Immature Granulocytes # 0.210 H Neutrophils # 7.6 H Lymphocytes # 1.5 Monocytes # 1.0 H Eosinophils # 0.1 Basophils # 0.0 Nucleated Red Blood Cells # 0.0 Sodium Level 138 Potassium Level 3.6 Chloride Level 100 Carbon Dioxide Level 31 Anion Gap 7 Blood Urea Nitrogen 10 Creatinine 0.69 Est Glomerular Filtrat Rate mL/min > 60 Glucose Level 157 Calcium Level 8.7 Phosphorus Level 2.7 Magnesium Level 2.0 Medications Medication Current Medications IV Flush (NS 3 ml) 3 ml PER PROTOCOL IV ; Start 07/27/18 at 02:00 Ondansetron HCl (Zofran Inj) 4 mg Q6H PRN IV NAUSEA/VOMITING; Start 07/27/18 at 02:00 Acetaminophen (Tylenol Tab) 650 mg Q6H PRN PO .PAIN 1-3 OR TEMP Last administered on 3/8/19at 19:46; Admin Dose 650 MG; Start 07/27/18 at 02:00 Acetaminophen/ Hydrocodone Bitart ([place] (5/325)) 1 tab Q6H PRN PO .MOD PAIN 4- 6 Last administered on 07/28/18 15:23; Admin Dose 1 TAB; Start 07/27/18 at 02:00 Acetaminophen/ Hydrocodone Bitart ([place] (5/325)) 2 tab Q6H PRN PO .SEVERE PAIN 7-10 Last administered on 08/02/18 04:56; Admin Dose 2 TAB; Start 07/27/18 at 02:00 Docusate Sodium (Colace) 100 mg BID PO Last administered on 08/05/18 08:34; Admin Dose 100 MG; Start 07/29/18 at 23:30 Polyethylene Glycol (Miralax) 17 gm DAILY PO Last administered on 08/05/18 08:34; Admin Dose 17 GM; Start 07/30/18 at 09:00 Levalbuterol (Xopenex Neb) 0.63 mg Q6H RESP THERAPY HHN Last administered on 08/05/18 10:22; Admin Dose 0.63 MG; Start 07/30/18 at 14:00 IV Flush (NS 10 ml) 10 ml PRN PRN IV IV PROTOCOL; Start 07/30/18 at 16:30 Pantoprazole (Protonix Iv) 40 mg BID@06,18 IV Last administered on 08/05/18 05:33; Admin Dose 40 MG; Start 08/01/18 at 18:00 Meropenem/Sodium Chloride 50 ml @ 100 mls/hr Q8 IVPB Last administered on 08/05/18 13:54; Admin Dose 100 MLS/HR; Start 08/02/18 at 16:00 Levofloxacin/ Dextrose 100 ml @ 100 mls/hr Q24H IVPB Last administered on 08/04/18 17:04; Admin Dose 100 MLS/HR; Start 08/02/18 at 17:00 Furosemide (Lasix) 40 mg DAILY IV Last administered on 08/05/18 08:35; Admin D ose 40 MG; Start 08/03/18 at 12:00 Sucralfate (Carafate) 1 gm QID PO Last administered on 08/05/18 12:04; Admin Dose 1 GM; Start 08/03/18 at 13:00 JOHN ABDULLAHI MD Aug 05, 2018 15:49
[2018-08-05] MEDS ORDERED: DOCUSATE SODIUM 100 MG CAP PO PRN (16:00)
[2018-08-05] MEDS ORDERED: PANTOPRAZOLE (EC) 40 MG TAB PO ONE (16:56)
[2018-08-05] MEDS: PANTOPRAZOLE (EC) 40 MG TAB PO SCH (17:15)
--- NOTE | 2018-08-05 18:00 | CONS ---
Assessment/Plan Assessment/Plan Assessment/Plan (Daily) Hospital Course (Demo Recall) Interval HX- Awake, alert, resting in bed comfortably, tolerating po well, no acute events overnight, had 3 soft stools last night per nursing staff, WBC slightly elevated, sputum negative. IMPRESSION: 1. Epigastric pain -s/p EGD 07/29 2. Dysphagia to solid food. Rule out malignancy, especially esophageal stricture. 3. Cachexia. 4. Hypertension. 5. History of bronchial asthma. 6. Necrotizing duodenal ulcer 7. Multiple linear esophageal ulcers 8. Gastritis 9. Esophagitis 10 rectal bleeding, resolved PLAN: One unit PRBC for hgb less than 7.0 Regular diet, tolerating well Carafate, PPI, Antiemetics Hold colace and Miralax for loose stools/diarrhea Sputum negative nutritional support Consultation Date/Type/Reason Admit Date/Time Jul 26, 2018 at 22:49 Initial Consult Date Date/Time of Note DATE: 08/05/18 TIME: 17:59 24 HR Interval Summary Constitutional: no complaints, improved Exam/Review of Systems Exam Vitals Vital Signs Date Temp Pulse Resp B/P (MAP) Pulse Ox O2 O2 Flow FiO2 Time Delivery Rate 08/05/18 98.1 105 16 105/68 95 Room Air 14:40 (80) 08/05/18 2.0 03:20 08/04/18 27 20:55 Intake and Output 08/04/18 08/04/18 08/05/18 1515:00 23:00 07:00 IntakeIntake Total 650 ml 1000 ml 600 ml OutputOutput Total 850 ml 3400 ml 1250 ml BalanceBalance -200 ml -2400 ml -650 ml Constitutional: alert, oriented, well developed Psych: no complaints, nl mood/affect Head: normocephalic, atraumatic Eyes: nl conjunctiva, EOMI, nl lids, nl sclera, PERRL ENMT: nl external ears & nose, nl lips & teeth, nl nasal mucosa & septum Neck: supple, non-tender Respiratory: clear to auscultation, normal air movement Cardiovascular: regular rate and rhythm, nl pulses Gastrointestinal: soft, nl liver, spleen, non-tender Musculoskeletal: nl extremities to inspection, nl gait and stance Extremities: normal pulses Neurological: 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-XII 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, nl mental status, nl speech, nl strength Skin: nl turgor; No rash or lesions Lymph: nl lymph nodes Results Result Diagram: 08/05/18 0441 08/05/18 0441 Results 24hrs Laboratory Tests Test 08/05/18 04:41 White Blood Count 10.5 Red Blood Count 3.32 L Hemoglobin 9.5 L Hematocrit 28.5 L Mean Corpuscular Volume 85.8 Mean Corpuscular Hemoglobin 28.6 L Mean Corpuscular Hemoglobin Concent 33.3 Red Cell Distribution Width 15.3 H Platelet Count 268 # Mean Platelet Volume 9.8 Immature Granulocytes % 2.000 H Neutrophils % 72.0 Lymphocytes % 14.7 L Monocytes % 9.8 Eosinophils % 1.3 Basophils % 0.2 Nucleated Red Blood Cells % 0.0 Immature Granulocytes # 0.210 H Neutrophils # 7.6 H Lymphocytes # 1.5 Monocytes # 1.0 H Eosinophils # 0.1 Basophils # 0.0 Nucleated Red Blood Cells # 0.0 Sodium Level 138 Potassium Level 3.6 Chloride Level 100 Carbon Dioxide Level 31 Anion Gap 7 Blood Urea Nitrogen 10 Creatinine 0.69 Est Glomerular Filtrat Rate mL/min > 60 Glucose Level 157 Calcium Level 8.7 Phosphorus Level 2.7 Magnesium Level 2.0 Medications Medication Current Medications IV Flush (NS 3 ml) 3 ml PER PROTOCOL IV ; Start 07/27/18 at 02:00 Ondansetron HCl (Zofran Inj) 4 mg Q6H PRN IV NAUSEA/VOMITING; Start 07/27/18 at 02:00 Acetaminophen (Tylenol Tab) 650 mg Q6H PRN PO .PAIN 1-3 OR TEMP Last administered on 08/02/18 19:46; Admin Dose 650 MG; Start 07/27/18 at 02:00 Acetaminophen/ Hydrocodone Bitart ([place] (5/325)) 1 tab Q6H PRN PO .MOD PAIN 4- 6 Last administered on 07/28/18 15:23; Admin Dose 1 TAB; Start 07/27/18 at 02:00 Acetaminophen/ Hydrocodone Bitart ([place] (5/325)) 2 tab Q6H PRN PO .SEVERE PAIN 7-10 Last administered on 08/02/18 04:56; Admin Dose 2 TAB; Start 07/27/18 at 02:00 Polyethylene Glycol (Miralax) 17 gm DAILY PO Last administered on 08/05/18at 08:34; Admin Dose 17 GM; Start 07/30/18 at 09:00 IV Flush (NS 10 ml) 10 ml PRN PRN IV IV PROTOCOL; Start 07/30/18 at 16:30 Meropenem/Sodium Chloride 50 ml @ 100 mls/hr Q8 IVPB Last administered on 08/05/18at 13:54; Admin Dose 100 MLS/HR; Start 08/02/18 at 16:00 Sucralfate (Carafate) 1 gm QID PO Last administered on 08/05/18at 17:15; Admin Dose 1 GM; Start 08/03/18 at 13:00 Docusate Sodium (Colace) 100 mg BID PRN PO CONSTIPATION; Start 08/05/18 at 16:00 Levalbuterol (Xopenex Neb) 0.63 mg Q8H RESP THERAPY HHN Last administered on 08/05/18at 16:27; Admin Dose 0.63 MG; Start 08/05/18 at 16:00 Pantoprazole (Protonix Tab) 40 mg BID@06,18 PO Last administered on 08/05/18at 17:15; Admin Dose 40 MG; Start 08/05/18 at 18:00 Furosemide (Lasix) 40 mg DAILY PO ; Start 08/06/18 at 09:00 Thiamine HCl (Vitamin B1) 100 mg DAILY PO ; Start 08/06/18 at 09:00 TRUMAN ARRINGTON MD Aug 05, 2018 18:00
[2018-08-05 20:55] VITALS: BP 116/77; PULSE 105; RESP 20
[2018-08-05] MEDS: HYDROCODONE/APAP (5/325) TAB PO PRN (21:01)
[2018-08-06 02:00] VITALS: BP 103/69; PULSE 95; RESP 18
[2018-08-06] MEDS: HYDROCODONE/APAP (5/325) TAB PO PRN (04:55)
[2018-08-06] MEDS: MEROPENEM 1 GM/50ML(PMX) 50 ML IVPB SCH ×2 (05:42→13:56)
[2018-08-06] MEDS: PANTOPRAZOLE (EC) 40 MG TAB PO SCH (05:42)
[2018-08-06] MEDS: LEVALBUTEROL (NEB) 0.63 MG/3 ML AMP HHN SCH ×3 (07:50→16:00)
[2018-08-06 08:00] VITALS: BP 119/81; PULSE 91; RESP 18
[2018-08-06] MEDS: SUCRALFATE 1 GM TAB PO SCH ×2 (08:19→12:27)
[2018-08-06] MEDS: POLYETHYLENE GLYCOL 17 GM PACKET PO SCH (08:20)
[2018-08-06] MEDS ORDERED: FUROSEMIDE 40 MG TAB PO SCH (09:00)
[2018-08-06] MEDS ORDERED: THIAMINE 100 MG TAB PO SCH (09:00)
--- NOTE | 2018-08-06 11:14 | CONS ---
Consult Date/Type/Reason Admit Date/Time Jul 26, 2018 at 22:49 Initial Consult Date Type of Consult Pulmonary Date/Time of Note DATE: 08/06/18 TIME: 11:13 Subjective Patient comfortable this morning. Denies shortness of breath Objective Vital Signs Date Temp Pulse Resp B/P (MAP) Pulse Ox O2 O2 Flow FiO2 Time Delivery Rate 08/06/18 98.6 91 18 119/81 98 08:00 (94) 08/06/18 Room Air 02:00 08/05/18 2.0 10:22 08/04/18 27 20:55 Intake and Output 08/05/18 08/05/18 08/06/18 1515:00 23:00 07:00 IntakeIntake Total 650 ml 500 ml 850 ml OutputOutput Total 130 ml 1100 ml BalanceBalance 650 ml 370 ml -250 ml Exam Thin older than age appearing -[place] gentleman GENERAL: VITAL SIGNS: per chart NECK: Supple. No JVD or lymphadenopathy. CARDIAC EXAM: S1, S2. No added sounds or murmurs. CHEST: clear bilaterally, No added sounds, rales or wheezes ABDOMEN: Soft, nontender. No guarding or rebound. EXTREMITIES: No cyanosis, clubbing or edema. NEUROLOGIC: Generalized weakness. No focal deficits. Vent Setting Fraction of Inspired Oxygen pe: 27 Results/Medications Result Diagram: 08/06/18 0612 08/06/18 0612 Results 24 hrs Laboratory Tests Test 08/06/18 06:12 White Blood Count 9.3 Red Blood Count 3.35 L Hemoglobin 9.6 L Hematocrit 29.0 L Mean Corpuscular Volume 86.6 Mean Corpuscular Hemoglobin 28.7 L Mean Corpuscular Hemoglobin Concent 33.1 Red Cell Distribution Width 15.4 H Platelet Count 327 # Mean Platelet Volume 9.4 Immature Granulocytes % 1.500 H Neutrophils % 71.9 Lymphocytes % 16.4 Monocytes % 7.8 Eosinophils % 2.1 Basophils % 0.3 Nucleated Red Blood Cells % 0.0 Immature Granulocytes # 0.140 H Neutrophils # 6.7 Lymphocytes # 1.5 Monocytes # 0.7 Eosinophils # 0.2 Basophils # 0.0 Nucleated Red Blood Cells # 0.0 Prothrombin Time 12.9 Prothrombin Time Ratio 1.0 INR International Normalized Ratio 0.96 Sodium Level 139 Potassium Level 4.1 Chloride Level 100 Carbon Dioxide Level 32 H Anion Gap 7 Blood Urea Nitrogen 13 Creatinine 0.68 Est Glomerular Filtrat Rate mL/min > 60 Glucose Level 158 Calcium Level 8.9 Phosphorus Level 3.2 Magnesium Level 2.1 Total Bilirubin 0.5 Direct Bilirubin 0.00 Indirect Bilirubin 0.5 Aspartate Amino Transf (AST/SGOT) 57 H Alanine Aminotransferase (ALT/SGPT) 63 Alkaline Phosphatase 81 Total Protein 6.1 Albumin 2.7 L Globulin 3.40 H Albumin/Globulin Ratio 0.79 Medications Current Medications IV Flush (NS 3 ml) 3 ml PER PROTOCOL IV ; Start 07/27/18 at 02:00 Ondansetron HCl (Zofran Inj) 4 mg Q6H PRN IV NAUSEA/VOMITING; Start 07/27/18 at 02:00 Acetaminophen (Tylenol Tab) 650 mg Q6H PRN PO .PAIN 1-3 OR TEMP Last administered on 08/02/18at 19:46; Admin Dose 650 MG; Start 07/27/18 at 02:00 Acetaminophen/ Hydrocodone Bitart ([place] (5/325)) 1 tab Q6H PRN PO .MOD PAIN 4- 6 Last administered on 08/06/18 04:55; Admin Dose 1 TAB; Start 07/27/18 at 02:00 Acetaminophen/ Hydrocodone Bitart ([place] (5/325)) 2 tab Q6H PRN PO .SEVERE PAIN 7-10 Last administered on 08/02/18at 04:56; Admin Dose 2 TAB; Start 07/27/18 at 02:00 Polyethylene Glycol (Miralax) 17 gm DAILY PO Last administered on 08/05/18at 08:34; Admin Dose 17 GM; Start 07/30/18 at 09:00 IV Flush (NS 10 ml) 10 ml PRN PRN IV IV PROTOCOL; Start 07/30/18 at 16:30 Meropenem/Sodium Chloride 50 ml @ 100 mls/hr Q8 IVPB Last administered on 08/06/18at 05:42; Admin Dose 100 MLS/HR; Start 08/02/18 at 16:00 Sucralfate (Carafate) 1 gm QID PO Last administered on 08/06/18at 08:19; Admin Dose 1 GM; Start 08/03/18 at 13:00 Docusate Sodium (Colace) 100 mg BID PRN PO CONSTIPATION; Start 08/05/18 at 16:00 Levalbuterol (Xopenex Neb) 0.63 mg Q8H RESP THERAPY HHN Last administered on 08/05/18at 16:27; Admin Dose 0.63 MG; Start 08/05/18 at 16:00 Pantoprazole (Protonix Tab) 40 mg BID@06,18 PO Last administered on 08/06/18at 05:42; Admin Dose 40 MG; Start 08/05/18 at 18:00 Furosemide (Lasix) 40 mg DAILY PO Last administered on 08/06/18at 08:20; Admin Dose 40 MG; Start 08/06/18 at 09:00 Thiamine HCl (Vitamin B1) 100 mg DAILY PO Last administered on 08/06/18at 08:20; Admin Dose 100 MG; Start 08/06/18 at 09:00 Assessment/Plan Hospital Course (Demo Recall) Assessment 1. Acute hypoxemic respiratory failure possible aspiration pneumonia 2. Probable component of congestive heart failure 3. Significant cachexia and weight loss concerning for underlying malignancy 4. Anemia status post EGD Plan 1. Aspiration precautions nutrition recommendations 2. Monitor H&H DC planning okay from pulmonary standpoint MARYANN SEGOVIA MD, [facility] Aug 06, 2018 11:14
--- NOTE | 2018-08-06 11:20 | PDOCDIS ---
Discharge Instructions CONDITION [id number] Patient Condition: [id number] Stable HOME CARE INSTRUCTIONS: [id number] Diet Instructions: [id number] Low Fat /Cholesterol (avoid soda/ alcohol) [id number] Special Diet: Cqmos4i Pureed dieet [id number] Your diet recommendation is: Ysuqx2t avoid lots of fluids after 6pm, to cut back on running to bathroom at night ACTIVITY: [id number] Activity Restrictions: Ghnda7l No Restrictions Do not Drive [id number] Bathing Restrictions: [id number] Shower FOLLOW UP/APPOINTMENTS Follow-up Plan appt primary 1wk. may call med records: [phone] for DC summary[address] appt Dr Lassiter 1-2wks REFERRALS Other Referrals no advil/ motrin/ aspirin for a few weeks. SCHOOL/WORK RELEASE May return to School/Work on: Aug 06, 2018 JOHN ABDULLAHI MD Aug 06, 2018 11:20
[2018-08-06] MEDS ORDERED: ACET325T33 PO (11:22)
[2018-08-06] MEDS ORDERED: LACT1CAP28 PO (11:22)
[2018-08-06] MEDS ORDERED: FURO40TA4 PO (11:22)
[2018-08-06] MEDS ORDERED: POLY17PO6 PO (11:22)
[2018-08-06] MEDS ORDERED: THIA100T56 PO (11:22)
[2018-08-06] MEDS ORDERED: PANT40TA4 PO (11:22)
[2018-08-06] MEDS ORDERED: SUCR1TAB35 PO (11:22)
[2018-08-06] MEDS ORDERED: ALBU18HF INH (11:22)
[2018-08-06] MEDS ORDERED: ALBUTEROL HFA 8 GM INHALER INH PRN (11:30)
--- NOTE | 2018-08-06 12:19 | DS ---
Date/Time of Note Date/Time of Note DATE: 08/06/18 TIME: 12:10 Discharge Summary Admission/Discharge Info Admit Date/Time Jul 26, 2018 at 22:49 Discharge Date/Time Patient Condition: Stable Consults Dr. Maikol Long Procedures CT A/P IMPRESSION: 1. The liver is slightly small in size with a suggestion of minimal micro lobulated contour. No hepatic masses. This may be incidental or due to mild cirrhosis. 2. Contracted gallbladder with possible wall thickening and some fluid adjacent to the gallbladder and duodenum with small 9 mm dense or enhancing fo cus adjacent to the gallbladder of uncertain etiology. Ultrasound of the gallbladder after fasting may be helpful for further evaluation. 3. Possible mild pancreatitis. Correlate with pancreatic enzymes. Abdominal ultrasound IPRESSION: Contracted gallbladder with no evidence of gallstones. Trace pericholecystic fluid and mild gallbladder wall thickening. EGD pathology: MICROSCOPIC DIAGNOSIS: Gastric biopsy: -- Body and antral mucosa showing chronic gastritis, mild and patchy, predominantly involving the antral fragments. -- No Helicobacter organisms are identified in a Giemsa stain (positive control concurrently reviewed). -- There is no evidence of malignancy. MP/SHAGGY/tm/mt Date of Service: 07/29/18; Date Received: 07/29/18 Dictated: 07/30/18; Transcribed: 07/30/18; Sent by Fax: 07/30/18 Hx of Present Illness 63-year-old gentleman sent into the hospital from primary for abdominal pain. Subacute pain, w wt loss. Bilat abd, sharp pain to back. Worse lying down or at night. No relieving factors. No fever diarrhea constipation or Gi b. No fever dyspnea. Early satiety vs loss of appetite? Colonoscopy many years ago was apparently unremarkable. Hospital Course Hospitalist coverage/hospital course Patient was seen by GI. No evidence of acute cholecystitis. Underwent EGD biopsy. Duodenal ulcerating/erosive ulcer seen. Patient has been treated medically, tolerating diet stable and fit for discharge to follow-up with GI. Pathology appears unremarkable at this time. While recovering on the monitor floor patient had a syncope. Had active GI bleed. Went to ICU. Had a repeat endoscopy done. Additionally was treated for acute respiratory failure aspiration pneumonia. All of which have resolved. Patient has finished antibiotics. He does have some deconditioning and we will try to arrange outpatient care. A/P 1. PUD, sp egd/ bx. Stable, follow-up with GI / PPI/Carafate. Asked him to avoid nonsteroidals. 2. Chr pancreatitis? Due to alcoholism vs stones? 3. Past alcoholism. 4. Weight loss. s/p colonoscopy. Probably due to esophagitis or ulcer 5. Chr HCV viremia. No mass on ultrasound. Checked alpha-fetoprotein. continue outpt surveillance 6. Dysphagia mostly to solids- esophagitis related? Patient speech therapy if feasible 7. Anemia/ ABL 8. Resolved Sepsis 9. Resolved Asp pneumonia; finished atb 10. Ftt; needs parole meeting? home/ snf today. Will arrange for a walker and physical therapy if feasible S: 3/2 subacute pain, w wt loss. Bilat abd, sharp pain to back. Worse lying down or at night. No relieving factors. No fever diarrhea constipation or Gi b. No f ever dyspnea. Early satiety vs loss of appetite? 07/28: No distress 08/05: no distress; some cough 08/06: No events O: Vital signs stable PE No pallor. Positive bitemporal wasting Regno m/r/g Bs+ nt nd; no r/r/g No edema Home Meds Active Scripts Thiamine* (Vitamin B-1*) 100 Mg Tablet, 100 MG PO DAILY for 30 Days, #30 TAB Prov:JOHN ABDULLAHI MD 08/06/18 Sucralfate (Carafate) 1 Gm Tablet, 1 GM PO QID for 14 Days, #20 TAB 2 Refills Prov:JOHN ABDULLAHI MD 08/06/18 Polyethylene Glycol* (Miralax*) 17 Gm Powd.pack, 17 GM PO DAILY for 7 Days Prov:JOHN ABDULLAHI MD 08/06/18 Pantoprazole* (Pantoprazole*) 40 Mg Tablet.dr, 40 MG PO BID@06,18 for 30 Days, #60 Prov:JOHN ABDULLAHI MD 08/06/18 Lactobacillus Rhamnosus GG (Culturelle) 1 Each Capsule, 1 CAP PO BID for 14 D ays, #30 CAP Prov:JOHN ABDULLAHI MD 08/06/18 Furosemide* (Furosemide*) 40 Mg Tablet, 20 MG PO DAILY for 10 Days, #10 TAB Prov:JOHN ABDULLAHI MD 08/06/18 Acetaminophen* (Tylenol*) 325 Mg Tablet, 650 MG PO Q6H PRN for .PAIN 1-3 OR TEMP for 1 Day, TAB Prov:JOHN ABDULLAHI MD 08/06/18 Albuterol Sulfate* (Ventolin HFA*) 18 Gm Hfa.aer.ad, 2 PUFF INH Q6H RESP THERAPY PRN for SHORTNESS OF BREATH for 10 Days Prov:JOHN ABDULLAHI MD 08/06/18 Follow-up Plan appt primary 1wk. september call med records: [phone] for DC summary[address] appt Dr Lassiter 1-2wks Primary Care Provider Not On Staff Doctor Time spent on discharge: > 30 minutes Pending Labs Laboratory Tests Test 08/06/18 06:12 White Blood Count 9.3 10^3/ul (4.8-10.8) Red Blood Count 3.35 10^6/ul (4.70-6.10) Hemoglobin 9.6 g/dl (14.0-18.0) Hematocrit 29.0 % (42.0-52.0) Mean Corpuscular Volume 86.6 fl (82.0-101.0) Mean Corpuscular Hemoglobin 28.7 pg (29.0-33.0) Mean Corpuscular Hemoglobin Concent 33.1 g/dl (32.0-37.0) Red Cell Distribution Width 15.4 % (11.5-14.5) Platelet Count 327 10^3/UL (140-415) Mean Platelet Volume 9.4 fl (7.4-10.4) Immature Granulocytes % 1.500 % (0.001-0.429) Neutrophils % 71.9 % (39.0-77.0) Lymphocytes % 16.4 % (15.0-51.0) Monocytes % 7.8 % (0.0-11.0) Eosinophils % 2.1 % (0.0-7.0) Basophils % 0.3 % (0.0-2.0) Nucleated Red Blood Cells % 0.0 /100WBC (0.0-0.0) Immature Granulocytes # 0.140 10^3/ul (0.0-0.031) Neutrophils # 6.7 10^3/ul (1.6-7.5) Lymphocytes # 1.5 10^3/ul (0.8-2.9) Monocytes # 0.7 10^3/ul (0.3-0.9) Eosinophils # 0.2 10^3/ul (0.0-0.5) Basophils # 0.0 10^3/ul (0.0-0.1) Nucleated Red Blood Cells # 0.0 10^3/ul (0.0-0.0) Prothrombin Time 12.9 Sec (11.9-14.9) Prothrombin Time Ratio 1.0 INR International Normalized Ratio 0.96 Sodium Level 139 mmol/L (135-144) Potassium Level 4.1 mmol/L (3.5-5.1) Chloride Level 100 mmol/L (97-110) Carbon Dioxide Level 32 mmol/L (21-31) Anion Gap 7 (5-13) Blood Urea Nitrogen 13 mg/dl (7-20) Creatinine 0.68 mg/dl (0.61-1.24) Est Glomerular Filtrat Rate mL/min > 60 mL/min (>60) Glucose Level 158 mg/dl (70-220) Calcium Level 8.9 mg/dl (8.4-10.2) Phosphorus Level 3.2 mg/dl (2.5-4.9) Magnesium Level 2.1 mg/dl (1.7-2.5) Total Bilirubin 0.5 mg/dl (0.2-1.3) Direct Bilirubin 0.00 mg/dl (0.00-0.20) Indirect Bilirubin 0.5 mg/dl (0-1.1) Aspartate Amino Transf (AST/SGOT) 57 IU/L (15-46) Alanine Aminotransferase (ALT/SGPT) 63 IU/L (13-69) Alkaline Phosphatase 81 IU/L (42-121) Total Protein 6.1 g/dl (6.1-8.1) Albumin 2.7 g/dl (3.3-4.9) Globulin 3.40 g/dl (1.3-3.2) Albumin/Globulin Ratio 0.79 JOHN ABDULLAHI MD Aug 06, 2018 12:19
--- NOTE | 2018-08-06 12:57 | CONS ---
Assessment/Plan Assessment/Plan Hospital Course (Demo Recall) No events, looks comfortable, no fevers Microbiology: Blood cultures remain negative, MRSA neg Indwelling: Right upper extremity PICC line Antimicrobials: Merrem Levaquin Physical examination: Well-developed chronically ill-appearing elderly - [place] man who is awake in no distress. Head atraumatic normocephalic sclera nonicteric. Neck is supple chest rise symmetrical breath sounds with scattered crackles. Heart: S1-S2. Abdomen soft bowel sounds present. Assessment: 1. Sepsis, resolving 2. Bilateral pneumonia likely aspiration 3. Cachexia 4. Anemia Plan: Remains stable, anticipate discharge on oral Levaquin to complete 2 weeks total antibiotics Consultation Date/Type/Reason Admit Date/Time Jul 26, 2018 at 22:49 Initial Consult Date Type of Consult id Date/Time of Note DATE: 08/06/18 TIME: 12:56 Exam/Review of Systems Exam Vitals Vital Signs Date Temp Pulse Resp B/P (MAP) Pulse Ox O2 O2 Flow FiO2 Time Delivery Rate 08/06/18 98.6 91 18 119/81 98 08:00 (94) 08/06/18 Room Air 02:00 08/05/18 2.0 10:22 08/04/18 27 20:55 Intake and Output 08/05/18 08/05/18 08/06/18 1515:00 23:00 07:00 IntakeIntake Total 650 ml 500 ml 850 ml OutputOutput Total 130 ml 1100 ml BalanceBalance 650 ml 370 ml -250 ml Results Result Diagram: 08/06/18 0612 08/06/18 0612 Results 24hrs Laboratory Tests Test 08/06/18 06:12 White Blood Count 9.3 Red Blood Count 3.35 L Hemoglobin 9.6 L Hematocrit 29.0 L Mean Corpuscular Volume 86.6 Mean Corpuscular Hemoglobin 28.7 L Mean Corpuscular Hemoglobin Concent 33.1 Red Cell Distribution Width 15.4 H Platelet Count 327 # Mean Platelet Volume 9.4 Immature Granulocytes % 1.500 H Neutrophils % 71.9 Lymphocytes % 16.4 Monocytes % 7.8 Eosinophils % 2.1 Basophils % 0.3 Nucleated Red Blood Cells % 0.0 Immature Granulocytes # 0.140 H Neutrophils # 6.7 Lymphocytes # 1.5 Monocytes # 0.7 Eosinophils # 0.2 Basophils # 0.0 Nucleated Red Blood Cells # 0.0 Prothrombin Time 12.9 Prothrombin Time Ratio 1.0 INR International Normalized Ratio 0.96 Sodium Level 139 Potassium Level 4.1 Chloride Level 100 Carbon Dioxide Level 32 H Anion Gap 7 Blood Urea Nitrogen 13 Creatinine 0.68 Est Glomerular Filtrat Rate mL/min > 60 Glucose Level 158 Calcium Level 8.9 Phosphorus Level 3.2 Magnesium Level 2.1 Total Bilirubin 0.5 Direct Bilirubin 0.00 Indirect Bilirubin 0.5 Aspartate Amino Transf (AST/SGOT) 57 H Alanine Aminotransferase (ALT/SGPT) 63 Alkaline Phosphatase 81 Total Protein 6.1 Albumin 2.7 L Globulin 3.40 H Albumin/Globulin Ratio 0.79 Medications Medication Current Medications IV Flush (NS 3 ml) 3 ml PER PROTOCOL IV ; Start 07/27/18 at 02:00 Ondansetron HCl (Zofran Inj) 4 mg Q6H PRN IV NAUSEA/VOMITING; Start 07/27/18 at 02:00 Acetaminophen (Tylenol Tab) 650 mg Q6H PRN PO .PAIN 1-3 OR TEMP Last administered on 08/02/18 19:46; Admin Dose 650 MG; Start 07/27/18 at 02:00 Acetaminophen/ Hydrocodone Bitart ([place] (5/325)) 1 tab Q6H PRN PO .MOD PAIN 4- 6 Last administered on 08/06/18 04:55; Admin Dose 1 TAB; Start 07/27/18 at 02:00 Acetaminophen/ Hydrocodone Bitart ([place] (5/325)) 2 tab Q6H PRN PO .SEVERE PAIN 7-10 Last administered on 08/02/18 04:56; Admin Dose 2 TAB; Start 07/27/18 at 02:00 Polyethylene Glycol (Miralax) 17 gm DAILY PO Last administered on 08/05/18 08:34; Admin Dose 17 GM; Start 07/30/18 at 09:00 IV Flush (NS 10 ml) 10 ml PRN PRN IV IV PROTOCOL; Start 07/30/18 at 16:30 Meropenem/Sodium Chloride 50 ml @ 100 mls/hr Q8 IVPB Last administered on 08/06/18 05:42; Admin Dose 100 MLS/HR; Start 08/02/18 at 16:00 Sucralfate (Carafate) 1 gm QID PO Last administered on 3/12/19at 12:27; Admin Dose 1 GM; Start 08/03/18 at 13:00 Docusate Sodium (Colace) 100 mg BID PRN PO CONSTIPATION; Start 08/05/18 at 16:00 Levalbuterol (Xopenex Neb) 0.63 mg Q8H RESP THERAPY HHN Last administered on 08/05/18at 16:27; Admin Dose 0.63 MG; Start 08/05/18 at 16:00 Pantoprazole (Protonix Tab) 40 mg BID@06,18 PO Last administered on 08/06/18at 05:42; Admin Dose 40 MG; Start 08/05/18 at 18:00 Thiamine HCl (Vitamin B1) 100 mg DAILY PO Last administered on 08/06/18at 08:20; Admin Dose 100 MG; Start 08/06/18 at 09:00 Furosemide (Lasix) 20 mg DAILY PO ; Start 08/07/18 at 09:00 Lactobacillus Acidophilus/ Rhamnosus (Culturelle) 1 cap BID PO ; Start 08/06/18 at 21:00 Albuterol (Ventolin Hfa) 2 puff Q6H RESP THERAPY PRN INH SHORTNESS OF BREATH; Start 08/06/18 at 11:30 AMANDA KLEIN NP Aug 06, 2018 12:57
[2018-08-06 14:00] VITALS: BP 118/65; PULSE 80; RESP 18
--- NOTE | 2018-08-06 18:53 | CONS ---
Assessment/Plan Assessment/Plan Assessment/Plan (Daily) IMPRESSION: 1. Epigastric pain -s/p EGD 07/29 2. Dysphagia to solid food. Rule out malignancy, especially esophageal stricture. 3. Cachexia. 4. Hypertension. 5. History of bronchial asthma. 6. Necrotizing duodenal ulcer 7. Multiple linear esophageal ulcers 8. Gastritis 9. Esophagitis 10 rectal bleeding, resolved PLAN: One unit PRBC for hgb less than 7.0 Regular diet, tolerating well Carafate, PPI, Antiemetics Hold colace and Miralax for loose stools/diarrhea Sputum negative nutritional support Patient should be follow-up by the tenant relations coordinator as an outpatient Consultation Date/Type/Reason Admit Date/Time Jul 26, 2018 at 22:49 Initial Consult Date Date/Time of Note DATE: 08/06/18 TIME: 18:53 24 HR Interval Summary Free Text/Dictation Patient was seen by me in the morning he was ambulating. Appetite is good Constitutional: no complaints, improved Exam/Review of Systems Exam Vitals Vital Signs Date Temp Pulse Resp B/P (MAP) Pulse Ox O2 O2 Flow FiO2 Time Delivery Rate 08/06/18 98.6 80 18 118/65 96 14:00 (82) 08/06/18 Room Air 02:00 08/05/18 2.0 10:22 08/04/18 27 20:55 Intake and Output 08/05/18 08/05/18 08/06/18 1515:00 23:00 07:00 IntakeIntake Total 650 ml 500 ml 850 ml OutputOutput Total 130 ml 1100 ml BalanceBalance 650 ml 370 ml -250 ml Constitutional: alert, oriented, well developed Psych: no complaints, nl mood/affect Head: normocephalic, atraumatic Eyes: nl conjunctiva, EOMI, nl lids, nl sclera, PERRL ENMT: nl external ears & nose, nl lips & teeth, nl nasal mucosa & septum Neck: supple, non-tender Respiratory: clear to auscultation, normal air movement Cardiovascular: regular rate and rhythm, nl pulses Gastrointestinal: soft, nl liver, spleen, non-tender Musculoskeletal: nl extremities to inspection, nl gait and stance Extremities: normal pulses Neurological: CARE SPECIALIST II-XII intact, nl mental status, nl speech, nl strength Skin: nl turgor; No rash or lesions Lymph: nl lymph nodes Results Result Diagram: 08/06/18 0612 08/06/18 0612 Results 24hrs Laboratory Tests Test 08/06/18 06:12 White Blood Count 9.3 Red Blood Count 3.35 L Hemoglobin 9.6 L Hematocrit 29.0 L Mean Corpuscular Volume 86.6 Mean Corpuscular Hemoglobin 28.7 L Mean Corpuscular Hemoglobin Concent 33.1 Red Cell Distribution Width 15.4 H Platelet Count 327 # Mean Platelet Volume 9.4 Immature Granulocytes % 1.500 H Neutrophils % 71.9 Lymphocytes % 16.4 Monocytes % 7.8 Eosinophils % 2.1 Basophils % 0.3 Nucleated Red Blood Cells % 0.0 Immature Granulocytes # 0.140 H Neutrophils # 6.7 Lymphocytes # 1.5 Monocytes # 0.7 Eosinophils # 0.2 Basophils # 0.0 Nucleated Red Blood Cells # 0.0 Prothrombin Time 12.9 Prothrombin Time Ratio 1.0 INR International Normalized Ratio 0.96 Sodium Level 139 Potassium Level 4.1 Chloride Level 100 Carbon Dioxide Level 32 H Anion Gap 7 Blood Urea Nitrogen 13 Creatinine 0.68 Est Glomerular Filtrat Rate mL/min > 60 Glucose Level 158 Calcium Level 8.9 Phosphorus Level 3.2 Magnesium Level 2.1 Total Bilirubin 0.5 Direct Bilirubin 0.00 Indirect Bilirubin 0.5 Aspartate Amino Transf (AST/SGOT) 57 H Alanine Aminotransferase (ALT/SGPT) 63 Alkaline Phosphatase 81 Total Protein 6.1 Albumin 2.7 L Globulin 3.40 H Albumin/Globulin Ratio 0.79 TRUMAN ARRINGTON MD Aug 06, 2018 18:53
[2018-08-06] MEDS ORDERED: LACTOBACILLUS RHAMNOSUS CAP PO SCH (21:00)
[2018-08-07] MEDS ORDERED: FUROSEMIDE 20 MG TAB PO SCH (09:00)
== END 2018-08-06 17:10 | disposition home or self-care (01) | DRG 438 ==
LOC: E/R 17:00 → MS1 22:49 → ICU 07-30 02:57 → 6WM 07-31 20:48 → PP2 08-04 23:15
PROVIDERS: ADMIT Internal Medicine; ATTEND Internal Medicine
PROC: 0DB68ZX Excision of Stomach, Via Natural or Artificial Opening Endoscopic, Diagnostic (ICD-10-PCS; principal; 2018-07-29 13:00)
PROC: 02H633Z Insertion of Infusion Device into Right Atrium, Percutaneous Approach (ICD-10-PCS; 2018-07-30)
PROC: B244ZZZ Ultrasonography of Right Heart (ICD-10-PCS; 2018-07-30)
PROC: 30233N1 Transfusion of Nonautologous Red Blood Cells into Peripheral Vein, Percutaneous Approach (ICD-10-PCS; 2018-07-30)
PROC: 30233N1 Transfusion of Nonautologous Red Blood Cells into Peripheral Vein, Percutaneous Approach (ICD-10-PCS; 2018-08-01)
PROC: 0DJD8ZZ Inspection of Lower Intestinal Tract, Via Natural or Artificial Opening Endoscopic (ICD-10-PCS; 2018-08-01)
DX: K86.0 Alcohol-induced chronic pancreatitis (principal); E43 Unspecified severe protein-calorie malnutrition; R57.1 Hypovolemic shock; J96.01 Acute respiratory failure with hypoxia; A41.9 Sepsis, unspecified organism; R65.21 Severe sepsis with septic shock; J69.0 Pneumonitis due to inhalation of food and vomit; R64 Cachexia; E87.2 Acidosis; D62 Acute posthemorrhagic anemia; K26.3 Acute duodenal ulcer without hemorrhage or perforation; K22.10 Ulcer of esophagus without bleeding; K92.1 Melena; Z68.1 Body mass index [BMI] 19.9 or less, adult; R13.10 Dysphagia, unspecified; K74.60 Unspecified cirrhosis of liver; I10 Essential (primary) hypertension; J45.909 Unspecified asthma, uncomplicated; E78.5 Hyperlipidemia, unspecified; B18.2 Chronic viral hepatitis C; D64.9 Anemia, unspecified; K81.1 Chronic cholecystitis; K29.00 Acute gastritis without bleeding; R55 Syncope and collapse; K57.30 Diverticulosis of large intestine without perforation or abscess without bleeding; K64.8 Other hemorrhoids; F10.10 Alcohol abuse, uncomplicated; Z59.0 Homelessness; Z87.11 Personal history of peptic ulcer disease
CPT/HCPCS: 36415; 36430; 36569; 36600; 71045; 74018; 74177; 76705; 76937; 80048; 80053; 80061; 80202; 81003; 82103; 82105; 82378; 82803; 82962; 83036; 83605; 83690; 83735; 83880; 84100; 84443; 85014; 85018; 85025; 85610; 85730; 86078; 86301; 86704; 86709; 86803; 86850; 86900; 86901; 86920; 87040; 87070; 87081; 87340; 87536; 88305; 88312; 92526; 92610; 93005; 93306; 94640; 94664; 96374; 97116; 97162; 97530; C1769; C9113; J1644; J1940; J1956; J2185; J2370; J2543; J2765; J3370; J3475; J7030; J7040; J7050; J7120; P9016; P9047; Q9967

== ENCOUNTER 2018-08-24 12:56 | Emergency (ER) | payer OTHER ==
[~2018-08-24] VITALS: Ht 182.9 cm; Wt 63.0 kg
[~2018-08-24 12:56] MED LIST: ACET325T33 PO; ALBU18HF INH; FURO40TA4 PO; LACT1CAP28 PO; PANT40TA4 PO; POLY17PO6 PO; SUCR1TAB35 PO; THIA100T56 PO
[2018-08-24 13:08] VITALS: Ht 182.9 cm; Wt 63.0 kg
--- NOTE | 2018-08-24 17:52 | ERD ---
ER Documentation Chief Complaint Chief Complaint pt was in hosp for 11 days, wants to get meds refilled HPI 63-year-old male presents for follow-up of medications. Patient states he was discharged from the hospital here about 10 days ago. He states that 2 days after hospital discharge he went to the ER for abdominal pain and was again admitted to the [facility]. Also states that he went there for a boil on his buttocks.. Currently does not have any symptoms. He just wants to know how he can get help with medications at home. Patient states that when he was discharged from the hospital here he was set up with home health but he states that he may have been in [facility] at the time home health tried to contact him. Patient states that he has not follow-up with his primary care physician. ROS All systems reviewed and are negative except as per history of present illness. Medications Home Meds Active Scripts Thiamine* (Vitamin B-1*) 100 Mg Tablet, 100 MG PO DAILY for 30 Days, #30 TAB Prov:JOHN ABDULLAHI MD 08/06/18 Sucralfate (Carafate) 1 Gm Tablet, 1 GM PO QID for 14 Days, #20 TAB 2 Refills Prov:JOHN ABDULLAHI MD 08/06/18 Polyethylene Glycol* (Miralax*) 17 Gm Powd.pack, 17 GM PO DAILY for 7 Days Prov:JOHN ABDULLAHI MD 08/06/18 Pantoprazole* (Pantoprazole*) 40 Mg Tablet.dr, 40 MG PO BID@06,18 for 30 Days, #60 Prov:JOHN ABDULLAHI MD 08/06/18 Lactobacillus Rhamnosus GG (Culturelle) 1 Each Capsule, 1 CAP PO BID for 14 Days, #30 CAP Prov:JOHN ABDULLAHI MD 08/06/18 Furosemide* (Furosemide*) 40 Mg Tablet, 20 MG PO DAILY for 10 Days, #10 TAB Prov:JOHN ABDULLAHI MD 08/06/18 Acetaminophen* (Tylenol*) 325 Mg Tablet, 650 MG PO Q6H PRN for .PAIN 1-3 OR TEMP for 1 Day, TAB Prov:JOHN ABDULLAHI MD 08/06/18 Albuterol Sulfate* (Ventolin HFA*) 18 Gm Hfa.aer.ad, 2 PUFF INH Q6H RESP THERAPY PRN for SHORTNESS OF BREATH for 10 Days Prov:JOHN ABDULLAHI MD 08/06/18 Allergies Allergies: Coded Allergies: No Known Allergy (Unverified , 07/30/18) PMhx/Soc History of Surgery: Yes (Appy, L hip graft, BLE sx, L arm sx, R knee sx) Anesthesia Reaction: No Hx Neurological Disorder: No Hx Respiratory Disorders: Yes (asthma) Hx Cardiac Disorders: Yes (HTN, high cholesterol) Hx Psychiatric Problems: No Hx Miscellaneous Medical Probl: No Hx Alcohol Use: Yes (years ago) Hx Substance Use: No Hx Tobacco Use: No Smoking Status: Never smoker Physical Exam Vitals Vital Signs Date Temp Pulse Resp B/P (MAP) Pulse Ox O2 O2 Flow FiO2 Time Delivery Rate 08/24/18 98.3 65 18 161/74 98 13:08 (103) Physical Exam Const: No acute distress Resp: Clear to auscultation bilaterally Cardio: Regular rate and rhythm, no murmurs Abd: Soft, non tender, non distended. Normal bowel sounds Skin: No petechiae or rashes Back: No midline or flank tenderness Ext: No cyanosis, or edema Neur: Awake and alert Psych: Normal Mood and Affect Procedures/MDM Medical Decision Making: Patient presented for medication management and home health follow-up. Social service was contacted by them due to the weekend and the non-urgency of the patient's need, patient will need to follow up. Patient advised will need to follow-up on Sunday. Patient provided with hospital phone number for follow-up with social service to get information for his home health. Patient also advised that he will need to follow-up with his primary care physician for long-term management of his medications. Patient appeared well on physical exam. Patient did bring in a bag of his medications which were reviewed and patient was advised to continue with all medication until follow with primary care physician. Patient advised to follow up with PCP in 1-2 days. Patient advised to return to ED for new or worsening symptoms. Patient stable on discharge from the ED. Disclaimer: Inadvertent spelling and grammatical errors are likely due to EHR/dictation software use and do not reflect on the overall quality of patient care. Also, please note that the electronic time recorded on this note does not necessarily reflect the actual time of the patient encounter. Departure Diagnosis: Primary Impression: Medication refill Condition: Fair Patient Instructions: Taking Medicine Safely Referrals: [facility] YOU HAVE RECEIVED A MEDICAL SCREENING EXAM AND THE RESULTS INDICATE THAT YOU DO NOT HAVE A CONDITION THAT REQUIRES URGENT TREATMENT IN THE EMERGENCY DEPARTMENT. FURTHER EVALUATION AND TREATMENT OF YOUR CONDITION CAN WAIT UNTIL YOU ARE SEEN IN YOUR DOCTORS OFFICE WITHIN THE NEXT 1-2 DAYS. IT IS YOUR RESPONSIBILITY TO MAKE AN APPOINTMENT FOR FOLOW-UP CARE. IF YOU HAVE A PRIMARY DOCTOR --you should call your primary doctor and schedule an appointment IF YOU DO NOT HAVE A PRIMARY DOCTOR YOU CAN CALL OUR PHYSICIAN REFERRAL HOTLINE AT IF YOU CAN NOT AFFORD TO SEE A PHYSICIAN YOU CAN CHOSE FROM THE FOLLOWING [facility] [address] [facility] [address] [facility] [facility] [address] [facility] [address] [facility]. [facility] [address] [facility]. [facility] [address] Additional Instructions: Call your primary care doctor TOMORROW for an appointment during the next 1-2 days.See the doctor sooner or return here if your condition worsens before your appointment time. Call social worker masters at [facility] on Sunday for follow up on home health services at [phone] LINDSEY ZHOU DO Aug 24, 2018 17:52
[2018-08-24 18:03] VITALS: BP 114/75; PULSE 106; RESP 18
== END 2018-08-24 18:07 | disposition home or self-care (01) ==
LOC: FTE 12:56
DX: Z09 Encounter for follow-up examination after completed treatment for conditions other than malignant neoplasm (principal); I10 Essential (primary) hypertension; J45.909 Unspecified asthma, uncomplicated
CPT/HCPCS: 99282